=== PATIENT | female | born 1950 | race Caucasian/White ===

== ENCOUNTER → 2016-12-17 | Outpatient (CLI) | payer MEDICARE, BC ==
--- NOTE | 2016-12-18 10:48 | MM ---
Reason for exam: screening (asymptomatic). Last mammogram was performed 1 year and 1 month ago. History: Patient is postmenopausal and is nulliparous. Benign right mammotome panel of the right breast, September 27, 2005. Benign left mammotome panel of the left breast, September 14, 2005. Reductions of both breasts, 2001. Physical Findings: A clinical breast exam by your physician is recommended on an annual basis and results should be correlated with mammographic findings. MG 3D Screening Mammo W/Cad Bilateral CC and MLO view(s) were taken. Prior study comparison: December 02, 2015, bilateral MG screening mammo w CAD. May 07, 2014, bilateral MG screening mammo w CAD. July 05, 2011, bilateral digital screening mammo w/CAD. There are scattered fibroglandular densities. Finding: There are typically benign vascular, dystrophic, round calcifications in both breasts. Previous mammotome biopsy in the right breast. There is no discrete abnormality. ASSESSMENT: Benign, BI-RAD 2 RECOMMENDATION: Routine screening mammogram of both breasts in 1 year.
== END ==
LOC: RADMAMWWP 06:41
PROVIDERS: ATTEND Internal Medicine Geriatric Medicine
DX: Z12.31 Encounter for screening mammogram for malignant neoplasm of breast (principal)
CPT/HCPCS: 77063; G0202

== ENCOUNTER 2018-05-30 06:17 | Day surgery (SDC) | payer MEDICARE, BC ==
[2018-05-26 15:04] VITALS: BMI 30.5
[~2018-05-30 06:17] MED LIST: LACTATED RINGERS 1,000 ML IV SCH; MOXIFLOXACIN HCL 0.5% DROPS 3 ML BTL OP NR; TETRACAINE 0.5% OPHTH (PF) DROPS 4 ML BTL OP NR; TIMOLOL 0.5% OPHTH DROPS 5 ML BTL OP NR; TOBRA-DEXAMET 0.3-0.1% OPHTH DROPS 2.5 ML BTL OPHTHALMIC NR
[2018-05-30 07:07] VITALS: RESP 16
[2018-05-30 07:30] LABS: Glucose,Whole Blood 91 mg/dL (75-99)
[2018-05-30] MEDS ORDERED: LIDOCAINE 1% 20 ML VIAL (10MG/ML) FOR IV START INTRADERMA ONE (07:30)
[2018-05-30] MEDS: PILOCARPINE 2% OPHTH DROPS 15 ML BTL OP NR ×2 (07:44→08:54)
[2018-05-30] MEDS ORDERED: fentaNYL (PF) 50 MCG/ML 2 ML AMP ONE (08:44)
[2018-05-30] MEDS ORDERED: MIDAZOLAM 2 MG/2 ML VIAL ONE (08:44)
[2018-05-30] MEDS ORDERED: CHONDROITIN-SOD HYALURONATE 1 EACH SYRINGE (0.75 ML) INTRAOCULA ONE (08:57)
[2018-05-30] MEDS ORDERED: LIDOCAINE 1% INJ 10MG/ML (10 ML MDV) SQ ONE (08:57)
[2018-05-30] MEDS ORDERED: TRYPAN BLUE 0.06% SYRINGE 0.5 ML SYRINGE INTRAOCULA ONE ×2 (09:06)
--- NOTE | 2018-05-30 09:23 | P.OP ---
Date of Procedure: 05/30/18 Preoperative Diagnosis: POAG Postoperative Diagnosis: same Procedure(s) Performed: [place] dual blade - goniotomy Implants: none Anesthesia: MAC Surgeon: Billy Ross Pathology: none sent Condition: stable Disposition: same day Indications for Procedure: IOP control Operative Findings: No complications
[2018-05-30 09:53] LABS: Glucose,Whole Blood 100 mg/dL (75-99)
[2018-05-30 09:56] VITALS: BP 152/93; PULSE 77
--- NOTE | 2018-05-30 13:55 | OP ---
OPERATIVE REPORT DATE OF SURGERY: May,. PROCEDURE PERFORMED: Goniotomy of the left eye. PREOPERATIVE DIAGNOSIS: Primary open-angle glaucoma, moderate stage. POSTOPERATIVE DIAGNOSIS: Primary open angle glaucoma, moderate stage. SURGEON: Dr. Billy Ross. ANESTHESIA: Topical. ESTIMATED BLOOD LOSS: Less than 5 mL. SPECIMEN: Taken none. NARRATIVE: After obtaining the appropriate consent, the patient was brought to the operating room. There she was placed on cardiac monitoring, prepped and draped in the usual sterile manner. She was approached from her left temporal side and a 2.5 mm keratome was used to create a self-sealing corneal flap incision at the 3 o'clock position. Through this opening, 1% Xylocaine MPF 50/50 mix with balanced salt solution was injected into the anterior chamber. This was followed by stabilization of the anterior chamber with Viscoat. The patient was then asked to rotate her head approximately 45 degrees to her right and maintain her gaze in that general direction. A small amount of Viscoat was placed on the patient's cornea and a gonio prism was used to examine the trabecular meshwork. Due to the proximity of the high iris insertion and the trabecular meshwork, it was decided to remove some of the viscoelastic in that particular area and use trypan blue to improve the visualization. Trypan was then irrigated away and additional Viscoat was used to stabilize the anterior chamber and the trabecular meshwork was easily identified. Using a [employer]ian[employer]iank dual blade goniotomy knife, the goniotomy was performed after passing the device across the anterior chamber and into the nasal trabecular meshwork. Then the knife was advanced in a counter-clockwise fashion for approximately 4-5 clock hours. [id number] amount of blood was encountered as expected. The patient was then returned to the normal supine position and irrigation aspiration of the remaining viscoelastic was accomplished without difficulty. The eye was brought to normal intraocular pressures through the temporal incision and the incision was confirmed watertight. She then received 2 drops of 0.5% timolol followed by 2 drops of moxifloxacin as well as 2 drops of 2% pilocarpine. She was lightly patched and shielded in the usual manner. There were no complications from the procedure. She tolerated the procedure well and was returned to outpatient recovery in good condition. MMODL / IJN: [id number] /
== END 2018-05-30 10:13 | disposition home or self-care (01) ==
LOC: OR 06:17
PROVIDERS: ATTEND Ophthalmology
DX: E11.39 Type 2 diabetes mellitus with other diabetic ophthalmic complication (principal); H42 Glaucoma in diseases classified elsewhere; H40.1132 Primary open-angle glaucoma, bilateral, moderate stage; E11.3393 Type 2 diabetes mellitus with moderate nonproliferative diabetic retinopathy without macular edema, bilateral; H52.13 Myopia, bilateral; H52.4 Presbyopia; H52.223 Regular astigmatism, bilateral; H00.023 Hordeolum internum right eye, unspecified eyelid; H00.026 Hordeolum internum left eye, unspecified eyelid; J45.909 Unspecified asthma, uncomplicated; M19.90 Unspecified osteoarthritis, unspecified site; Z79.4 Long term (current) use of insulin; Z79.899 Other long term (current) drug therapy; Z98.42 Cataract extraction status, left eye; Z98.41 Cataract extraction status, right eye; Z96.1 Presence of intraocular lens; Z96.641 Presence of right artificial hip joint; Z83.511 Family history of glaucoma; Z83.3 Family history of diabetes mellitus; Z97.3 Presence of spectacles and contact lenses
CPT/HCPCS: 65820; J2250; J3010; J2001

== ENCOUNTER → 2020-05-10 | Outpatient (CLI) | payer MEDICARE, OTHER ==
--- NOTE | 2020-05-11 12:01 | MM ---
Reason for exam: screening (asymptomatic). Last mammogram was performed 3 years and 5 months ago. History: Patient is postmenopausal and is nulliparous. Benign right mammotome panel of the right breast, September 27, 2005. Benign left mammotome panel of the left breast, September 14, 2005. Reductions of both breasts, 2001. Physical Findings: A clinical breast exam by your physician is recommended on an annual basis and results should be correlated with mammographic findings. MG 3D Screening Mammo W/Cad Bilateral CC and MLO view(s) were taken. Prior study comparison: December 17, 2016, bilateral MG 3d screening mammo w/cad. December 02, 2015, bilateral MG screening mammo w CAD. There are scattered fibroglandular densities. No significant changes when compared with prior studies. ASSESSMENT: Benign, BI-RAD 2 RECOMMENDATION: Routine screening mammogram of both breasts in 1 year.
== END | disposition home or self-care (01) ==
LOC: RADMAMWWP 14:45
PROVIDERS: ATTEND Internal Medicine Geriatric Medicine
DX: Z12.31 Encounter for screening mammogram for malignant neoplasm of breast (principal)
CPT/HCPCS: 77063; 77067

== ENCOUNTER → 2020-07-07 | Outpatient (CLI) | payer MEDICARE ==
--- NOTE | 2020-07-11 13:10 | US ---
EXAMINATION TYPE: US venous doppler duplex LE BI DATE OF EXAM: 07/07/2020 3:07 PM COMPARISON: NONE CLINICAL HISTORY: I80.9, M25.561, M25.562. Bilateral leg pain SIDE PERFORMED: Bilateral TECHNIQUE: The lower extremity deep venous system is examined utilizing real time linear array sonog katerine with graded compression, doppler sonography and color-flow sonography. VESSELS IMAGED: External Iliac Vein (EIV) Common Femoral Vein Deep Femoral Vein Greater Saphenous Vein * Femoral Vein Popliteal Vein Small Saphenous Vein * Proximal Calf Veins (* superficial vessels) Right Leg: Negative for DVT, patient unable to tolerate compressions at distal fem vein Left Leg: Negative for DVT, patient unable to tolerate compressions at distal fem vein Results called to Kacy at Dr's office at time of exam Grayscale, color doppler, spectral doppler imaging performed of the deep veins of the bilateral lower extremities. There is normal flow, compressibility, vascular waveforms. IMPRESSION: No ultrasound evidence for acute DVT in either lower extremity.
== END | disposition home or self-care (01) ==
LOC: RADUSWWP 14:34
PROVIDERS: ATTEND Orthopaedic Surgery
DX: I80.9 Phlebitis and thrombophlebitis of unspecified site (principal); M17.0 Bilateral primary osteoarthritis of knee; M85.80 Other specified disorders of bone density and structure, unspecified site
CPT/HCPCS: 93970

== ENCOUNTER 2021-03-17 23:57 | Inpatient (IN) | payer MEDICARE ==
[2021-03-18 00:13] LABS: Glucose,Whole Blood >600 mg/dL (75-99)
[2021-03-18] MEDS ORDERED: SODIUM CHLORIDE 0.9% 1,000 ML IV STA ×2 (00:24)
[2021-03-18] MEDS ORDERED: SODIUM CHLORIDE 0.9% 500 ML 500 ML IV STA (00:24)
--- NOTE | 2021-03-18 00:33 | ED ---
Recheck HPI - General Chief Complaint: Recheck/Abnormal Lab/Rx Stated Complaint: hyperglycemia Time Seen by Provider: 03/18/21 00:05 Source: patient, EMS, RN notes reviewed, old records reviewed Mode of arrival: EMS Limitations: no limitations - History of Present Illness Initial Comments: This is a 70-year-old female presents here for evaluation of significantly elevated blood sugar. Patient presents to the ED for evaluation regards to not acting appropriately not taking medications and severely elevated blood sugar. Failure to respond resulted in a well check on patient as they had not having heard from from since the march they noticed in her house where she hasn't taken any medication since March 12 and has had no contact with family since. Patient is irritated to be here in the ER currently, she admitted she would of taken her medications if she could have seen them, she states that she wouldn't be here for wasn't for her family members bringing her in. She wanted to go home. Family was encouraging her to stay in the hospital. Family is here at bedside. Patient denying any complaints, again no shortness of breath no re cent cough congestion fever or chest pain MD Complaint: abnormal lab (Significant elevated blood sugar) -: unknown Returns Today for: Called Because of Abnormal Lab/Test (Elevated blood sugar), other (Patient not responding to family calls) Symptoms Since Prior Visit: no new symptoms Context: other (Family called EMS to bring patient to emergency department) Associated Symptoms: none Treatments Prior to Arrival: other (Patient does have insulin pump which may not be working) - Related Data Home Medications Medication Instructions Recorded Confirmed Albuterol Inhaler (Mhu) [Ventolin 1 - 2 puff INHALATION RT-Q6H PRN 05/26/18 05/30/18 Hfa Inhaler] Albuterol Nebulized [Ventolin 2.5 mg INHALATION Q6H 05/26/18 05/30/18 Nebulized] Insulin Aspart (For Pump) [NovoLOG 0.01 unit SQ-PUMP CONTINUOUS 05/26/18 05/30/18 (For Pump)] Allergies Allergy/AdvReac Type Severity Reaction Status Date / Time No Known Allergies Allergy Verified 05/30/18 07:07 Review of Systems ROS Statement: Those systems with pertinent positive or pertinent negative responses have been documented in the HPI. ROS Other: All systems not noted in ROS Statement are negative. Past Medical History Past Medical History: Asthma, Diabetes Mellitus, Eye Disorder, Osteoarthritis (OA) Additional Past Medical History / Comment(s): insulin pump, jose luis glaucoma History of Any Multi-Drug Resistant Organisms: None Reported Past Surgical History: Breast Surgery, Joint Replacement, Orthopedic Surgery, Tubal Ligation Additional Past Surgical History / Comment(s): jose luis breast reduction, rt arm surgery, rt ankle surgery, rt hip replacement Past Anesthesia/Blood Transfusion Reactions: Previous Problems w/ Anesthesia Additional Past Anesthesia/Blood Transfusion Reaction / Comment(s): slow to come out of anesthesia Past Psychological History: No Psychological Hx Reported Smoking Status: Former smoker Past Alcohol Use History: None Reported Past Drug Use History: None Reported - Past Family History Mother Family Medical History: No Reported History General Exam Limitations: no limitations General appearance: alert, in no apparent distress Head exam: Present: atraumatic, normocephalic, normal inspection Eye exam: Present: normal appearance, PERRL, EOMI. Absent: scleral icterus, conjunctival injection, periorbital swelling ENT exam: Present: normal exam, mucous membranes moist Neck exam: Present: normal inspection. Absent: tenderness, meningismus, lymphadenopathy Respiratory exam: Present: normal lung sounds bilaterally. Absent: respiratory distress, wheezes, rales, rhonchi, stridor Cardiovascular Exam: Present: regular rate, normal rhythm, normal heart sounds. Absent: systolic murmur, diastolic murmur, rubs, gallop, clicks GI/Abdominal exam: Present: soft, normal bowel sounds. Absent: distended, te nderness, guarding, rebound, rigid Extremities exam: Present: normal inspection, full ROM, normal capillary refill. Absent: tenderness, pedal edema, joint swelling, calf tenderness Back exam: Present: normal inspection Neurological exam: Present: alert, oriented X3, CN II-XII intact Psychiatric exam: Present: normal affect, normal mood Skin exam: Present: warm, dry, intact, normal color. Absent: rash Course Vital Signs 03/18/21 03/18/21 00:02 01:43 Temperature 97.7 F Pulse Rate 96 85 Respiratory 16 16 Rate Blood Pressure 145/78 137/67 O2 Sat by Pulse 95 95 Oximetry - Reevaluation(s) Reevaluation #1: 03/18/21 0:13 Medical record is reviewed Reevaluation #2: 03/18/21 02:14 Patient troponin has come back positive. In conjunction with patient's abnormal EKG cardiology was paged regarding patient, Patient remains without chest pain Reevaluation #3: 03/18/21 02:14 Patient reevaluation continues remained without complaint, states she would like to be home - Consultations Consultation #1: spoke w Dr Goldstein who is aware of EKG and Troponin, will take patient to the cathead worker Medical Decision Making - Medical Decision Making 70 female to the ER without complaint, had elevated blood sugar at home, found to be in acute DKA, patient also is found to be an acute coronary syndrome elevated troponin and abnormal EKG. - Lab Data Result diagrams: 03/18/21 00:45 03/18/21 00:45 Lab Results 03/18/21 03/18/21 03/18/21 Range/Units 00:11 00:45 00:45 WBC 12.8 H (3.8-10.6) k/uL RBC 4.23 (3.80-5.40) m/uL Hgb 12.5 (11.4-16.0) gm/dL Hct 40.0 (34.0-46.0) % MCV 94.5 (80.0-100.0) fL MCH 29.6 (25.0-35.0) pg MCHC 31.3 (31.0-37.0) g/dL RDW 13.2 (11.5-15.5) % Plt Count 414 (150-450) k/uL MPV 8.7 Neutrophils % 86 % Lymphocytes % 7 % Monocytes % 4 % Eosinophils % 1 % Basophils % 0 % Neutrophils # 11.0 H (1.3-7.7) k/uL Lymphocytes # 0.9 L (1.0-4.8) k/uL Monocytes # 0.6 (0-1.0) k/uL Eosinophils # 0.1 (0-0.7) k/uL Basophils # 0.0 (0-0.2) k/uL Sodium 128 L (137-145) mmol/L Potassium 5.0 (3.5-5.1) mmol/L Chloride 93 L (98-107) mmol/L Carbon Dioxide 18 L (22-30) mmol/L Anion Gap 17 mmol/L BUN 37 H (7-17) mg/dL Creatinine 1.08 H (0.52-1.04) mg/dL Est GFR (CKD-EPI)AfAm 60 (>60 ml/min/1.73 sqM) Est GFR (CKD-EPI)NonAf 52 (>60 ml/min/1.73 sqM) Glucose 670 H* (74-99) mg/dL POC Glucose (mg/dL) >600 H (75-99) mg/dL POC Glu Senior Managing Director ID Truman Heard Calcium 9.5 (8.4-10.2) mg/dL Phosphorus 3.9 (2.5-4.5) mg/dL Magnesium 2.1 (1.6-2.3) mg/dL Total Bilirubin 0.6 (0.2-1.3) mg/dL AST 23 (14-36) U/L ALT 16 (4-34) U/L Alkaline Phosphatase 101 (38-126) U/L Creatine Kinase 142 H (30-135) U/L Troponin I (0.000-0.034) ng/mL Total Protein 6.5 (6.3-8.2) g/dL Albumin 3.5 (3.5-5.0) g/dL Acetone, Qual Positive (Negative) 03/18/21 Range/Units 00:45 WBC (3.8-10.6) k/uL RBC (3.80-5.40) m/uL Hgb (11.4-16.0) gm/dL Hct (34.0-46.0) % MCV (80.0-100.0) fL MCH (25.0-35.0) pg MCHC (31.0-37.0) g/dL RDW (11.5-15.5) % Plt Count (150-450) k/uL MPV Neutrophils % % Lymphocytes % % Monocytes % % Eosinophils % % Basophils % % Neutrophils # (1.3-7.7) k/uL Lymphocytes # (1.0-4.8) k/uL Monocytes # (0-1.0) k/uL Eosinophils # (0-0.7) k/uL Basophils # (0-0.2) k/uL Sodium (137-145) mmol/L Potassium (3.5-5.1) mmol/L Chloride (98-107) mmol/L Carbon Dioxide (22-30) mmol/L Anion Gap mmol/L BUN (7-17) mg/dL Creatinine (0.52-1.04) mg/dL Est GFR (CKD-EPI)AfAm (>60 ml/min/1.73 sqM) Est GFR (CKD-EPI)NonAf (>60 ml/min/1.73 sqM) Glucose (74-99) mg/dL POC Glucose (mg/dL) (75-99) mg/dL POC Glu Senior Managing Director ID Calcium (8.4-10.2) mg/dL Phosphorus (2.5-4.5) mg/dL Magnesium (1.6-2.3) mg/dL Total Bilirubin (0.2-1.3) mg/dL AST (14-36) U/L ALT (4-34) U/L Alkaline Phosphatase (38-126) U/L Creatine Kinase (30-135) U/L Troponin I 3.930 H* (0.000-0.034) ng/mL Total Protein (6.3-8.2) g/dL Albumin (3.5-5.0) g/dL Acetone, Qual (Negative) - EKG Data -: EKG Interpreted by Me (EKG shows sinus rhythm rate of 90 QRS [address] changes, Qwaves positiv) - Radiology Data Radiology results: report reviewed (Chest x-rays negative for acute disease, CT brain is negative for acute disease), image reviewed Critical Care Time Critical Care Time: Yes Total Critical Care Time: 31 Disposition Clinical Impression: DKA (diabetic ketoacidosis), Weakness, Acute coronary syndrome Disposition: ADMITTED IP TO THIS HOSP Condition: Serious Is patient prescribed a controlled substance at d/c from ED?: No
[2021-03-18 00:52] LABS: Basophils % (A) 0 %; Eosinophils # (A) 0.1 k/uL (0-0.7); Eosinophils % (A) 1 %; HGB 12.5 gm/dL (11.4-16.0); Lymphocytes # (A) 0.9 k/uL (1.0-4.8); Lymphocytes % (A) 7 %; MCH 29.6 pg (25.0-35.0); MCHC 31.3 g/dL (31.0-37.0); MCV 94.5 fL (80.0-100.0); Mean Platelet Volume 8.7; Monocytes # (A) 0.6 k/uL (0-1.0); Monocytes % (A) 4 %; Neutrophils % (A) 86 %; Platelet Count 414 k/uL (150-450); RBC 4.23 m/uL (3.80-5.40); RDW 13.2 % (11.5-15.5); WBC 12.8 k/uL (3.8-10.6)
[2021-03-18 01:09] LABS: ALT 16 U/L (4-34); African American GFR (CKD) 60 (>60 ml/min/1.73 sqM); Albumin 3.5 g/dL (3.5-5.0); Anion Gap 17 mmol/L; Blood Urea Nitrogen 37 mg/dL (7-17); Calcium 9.5 mg/dL (8.4-10.2); Carbon Dioxide 18 mmol/L (22-30); Chloride 93 mmol/L (98-107); Creatine Kinase 142 U/L (30-135); Non-African American GFR(CKD) 52 (>60 ml/min/1.73 sqM); Sodium 128 mmol/L (137-145); Total Bilirubin 0.6 mg/dL (0.2-1.3); Total Protein 6.5 g/dL (6.3-8.2)
--- NOTE | 2021-03-18 01:09 | XR ---
EXAMINATION TYPE: XR chest 2V DATE OF EXAM: 03/18/2021 COMPARISON: 01/31/2018 HISTORY: Weakness TECHNIQUE: FINDINGS: There is relative poor inspiration. There is no heart failure nor confluent pneumonic infil trate. I see no pleural effusion. There is minimal pleural reaction left lung base. There is some ant erior wedging of mid thoracic vertebra. There are chest leads. IMPRESSION: Mild subsegmental atelectasis left lung base. Poor inspiration. Inspiration improved comp ared to last exam.
[2021-03-18 01:19] LABS: Glucose 670 mg/dL (74-99); Magnesium 2.1 mg/dL (1.6-2.3); Phosphorus 3.9 mg/dL (2.5-4.5)
[2021-03-18 01:20] LABS: AST 23 U/L (14-36); Alkaline Phosphatase 101 U/L (38-126)
[2021-03-18] MEDS ORDERED: INSULIN REGULAR BOLUS (FROM DRIP BAG) IV ONE (01:39)
[2021-03-18] MEDS ORDERED: SODIUM CHLORIDE 0.9% 1,000 ML IV ONE (01:39)
[2021-03-18 01:43] LABS: Glucose,Whole Blood 585 mg/dL (75-99)
[2021-03-18] MEDS: INSULIN REGULAR 100 UNIT in SODIUM CHLORIDE 0.9% 100 ML IV SCH ×2 (02:07→05:24)
[2021-03-18] MEDS ORDERED: NITROGLYCERIN SL TABS 0.4 MG TAB SUBLINGUAL PRN ×2 (02:16→04:15)
[2021-03-18] MEDS ORDERED: ASPIRIN 81 MG PO STA (02:16)
[2021-03-18] MEDS ORDERED: MORPHINE SULFATE 4 MG/ML SYRINGE IV PRN (02:16)
[2021-03-18] MEDS ORDERED: HEPARIN SODIUM 1,000 UN/ML (10ML VL) IV ONE (02:16)
[2021-03-18] MEDS ORDERED: HEPARIN SOD,PORK IN 0.45% NACL 25,000 UNIT in 0.45% NACL 1 250ML.BAG IV SCH (02:30)
[2021-03-18] MEDS ORDERED: LIDOCAINE 1% INJ 10MG/ML (20 ML MDV) ONE (02:43)
[2021-03-18] MEDS ORDERED: IV FLUID CONTINUATION 1,000 ML IV ONE (02:50)
--- NOTE | 2021-03-18 02:51 | CT ---
EXAMINATION TYPE: CT brain wo con DATE OF EXAM: 03/18/2021 COMPARISON: None HISTORY: elevated tropinin. DKA CT DLP: 1115.4 mGycm Automated exposure control for dose reduction was used. Exam performed with no contrast. Ventricles have normal size. There is no mass effect nor midline shift. There is no sign of intracran ial hemorrhage. Calvarium is intact. There is normal aeration of the mastoid sinuses. The skull base is intact. IMPRESSION: Negative CT scan of the brain.
--- NOTE | 2021-03-18 02:51 | P.CRDCN ---
History of Present Illness History of present illness: HISTORY OF PRESENTING ILLNESS Patient is a pleasant 70-year-old female with history of diabetes mellitus type 2, osteoarthritis, diabetic neuropathy, previous tobacco abuse, macular degenera tion. Patient presented with altered mental status. Patient poor historian however history is supplied in conjunction with review of chart. Patient's [id number] noted patient was not acting appropriately and not taking her medications and therefore her blood sugar was checked it was noted to be extremely elevated and therefore presented to emergency department. Apparently since March 12, proximally 6 days ago she is not taking her medications. She states she does not want to be in the hospital currently. She does admit to a history of neuropathy of her feet. She denies any chest pain, pressure, shortness breath. She admits to diaphoresis "for a few minutes"however none right now and cannot describe when this occurred. She denies any jaw pain, arm pain, epigastric pain, GERD. She denies any prior cardiac history, coronary stents. She is alert and oriented to [facility] and states the year is 2013. On presentation EKG showed sinus rhythm, left axis deviation, Q waves V1 through the 3 with approximately 1.[address] elevation in lead V2, additional ST elevation of 1 mm in lead 1, 0.[address] elevation aVL, ST depression in lead 3, aVR. She was noted to have extremely elevated blood sugar of 670, sodium 128, potassium 5.0, bicarbonate 18, BUN 37, creatinine 1.08, white blood cell count 12.8, hemoglobin 12.5, platelets 414, CK 142, troponin 3.9. Cardiology was called when troponin was noted to be elevated and due to EKG and troponin, woven label designer was activated with possibility of silent ischemia. REVIEW OF SYSTEMS At the time of my exam: CONSTITUTIONAL: Denies fever or chills. CARDIOVASCULAR: Denies chest pain, shortness of breath, orthopnea, PND or palpit ations. RESPIRATORY: Denies cough. GASTROINTESTINAL: Denies abdominal pain, diarrhea, constipation, nausea or vomiting. MUSCULOSKELETAL: Denies myalgias. NEUROLOGIC: +chronic feet numbness, no tingling or weakness. ENDOCRINE: Denies fatigue, weight change, polydipsia or polyurina. GENITOURINARY: Denies burning, hematuria or urgency with micturation. HEMATOLOGIC: Denies history of anemia or bleeding. PHYSICAL EXAMINATION Vital signs reviewed. CONSTITUTIONAL: No apparent distress, alert however only oriented to person and hospital, thinks it's 2014, confused HEENT: Head is normocephalic. Pupils are equal, round. Sclerae anicteric. Mucous membranes of the mouth are moist. No JVD. No carotid bruit. CHEST EXAMINATION: Lungs are clear to auscultation. No chest wall tenderness is noted on palpation or with deep breathing. HEART EXAMINATION: Regular rate and rhythm. S1, S2 heard. No murmurs, gallops or rub. ABDOMEN: Soft, nontender. Positive bowel sounds. EXTREMITIES: 2+ peripheral pulses, no lower extremity edema and no calf tenderness. NEUROLOGIC EXAMINATION: Patient is awake, alert and oriented only to person hospital, infused ASSESSMENT 1. Non-STEMI with EKG concerning for possible old anterior MS plus or minus lateral 0.5-[address] elevation. Unclear if troponin is trending up or down. Abnormal presentation without any chest pain and more presenting with DKA and altered mental status. 2. Altered mental status 3. Diabetes mellitus type 2 4. DKA 5. Neuropathy 6. Metabolic Acidosis PLAN Patient with abnormal presentation without any chest pain or angina-type sympto ms and more with altered mental status. She may be having silent ischemia with diabetes and neuropathy. Blood work consistent with DKA and altered mental status likely related to DKA however await stat CT brain to rule out any bleed. If no bleed would recommend emergent heart catheterization with possible PCI. Unclear if troponins are trending up or trending down with EKG consistent with likely old anterior MS and possible or acute lateral. Check 2-D echo. Further recommendations to follow. Past Medical History Past Medical History: Asthma, Diabetes Mellitus, Eye Disorder, Osteoarthritis (OA) Additional Past Medical History / Comment(s): insulin pump, jose luis glaucoma History of Any Multi-Drug Resistant Organisms: None Reported Past Surgical History: Breast Surgery, Joint Replacement, Orthopedic Surgery, Tubal Ligation Additional Past Surgical History / Comment(s): jose luis breast reduction, rt arm surgery, rt ankle surgery, rt hip replacement Past Anesthesia/Blood Transfusion Reactions: Previous Problems w/ Anesthesia Additional Past Anesthesia/Blood Transfusion Reaction / Comment(s): slow to come out of anesthesia Past Psychological History: No Psychological Hx Reported Smoking Status: Former smoker Past Alcohol Use History: None Reported Past Drug Use History: None Reported - Past Family History Mother Family Medical History: No Reported History Medications and Allergies Home Medications Medication Instructions Recorded Confirmed Type Albuterol Inhaler (Mhu) [Ventolin 1 - 2 puff INHALATION RT-Q6H PRN 05/26/18 05/30/18 History Hfa Inhaler] Albuterol Nebulized [Ventolin 2.5 mg INHALATION Q6H 05/26/18 05/30/18 History Nebulized] Insulin Aspart (For Pump) [NovoLOG 0.01 unit SQ-PUMP CONTINUOUS 05/26/18 05/30/18 History (For Pump)] Allergies Allergy/AdvReac Type Severity Reaction Status Date / Time No Known Allergies Allergy Verified 05/30/18 07:07 Physical Exam Vitals: Vital Signs Temp Pulse Resp BP Pulse Ox 03/18/21 01:43 85 16 137/67 95 03/18/21 00:02 97.7 F 96 16 145/78 95 Intake and Output 03/17/21 03/17/21 03/18/21 14:59 22:59 06:59 Other: Weight 99.79 kg Results 03/18/21 00:45 03/18/21 00:45 Cardiac Enzymes 03/18/21 03/18/21 Range/Units 00:45 00:45 AST 23 (14-36) U/L Troponin I 3.930 H* (0.000-0.034) ng/mL CBC 03/18/21 Range/Units 00:45 WBC 12.8 H (3.8-10.6) k/uL RBC 4.23 (3.80-5.40) m/uL Hgb 12.5 (11.4-16.0) gm/dL Hct 40.0 (34.0-46.0) % Plt Count 414 (150-450) k/uL Comprehensive Metabolic Panel 03/18/21 Range/Units 00:45 Sodium 128 L (137-145) mmol/L Potassium 5.0 (3.5-5.1) mmol/L Chloride 93 L (98-107) mmol/L Carbon Dioxide 18 L (22-30) mmol/L BUN 37 H (7-17) mg/dL Creatinine 1.08 H (0.52-1.04) mg/dL Glucose 670 H* (74-99) mg/dL Calcium 9.5 (8.4-10.2) mg/dL AST 23 (14-36) U/L ALT 16 (4-34) U/L Alkaline Phosphatase 101 (38-126) U/L Total Protein 6.5 (6.3-8.2) g/dL Albumin 3.5 (3.5-5.0) g/dL Current Medications Generic Name Dose Route Start Last Admin Trade Name Freq PRN Reason Stop Dose Admin Aspirin 325 mg 03/19/21 09:00 Aspirin 325 Mg Tab PO DAILY [facility] [place] Atorvastatin Calcium 80 mg 03/18/21 09:00 Atorvastatin 80 Mg Tab PO DAILY PARUL Sodium Chloride 1,000 mls @ 130 mls/hr 03/18/21 00:24 03/18/21 00:54 Saline 0.9% IV 03/18/21 08:05 130 mls/hr .Q7H42M STA Administration Insulin Human Regular 100 unit 101 mls @ 10.079 mls/hr 03/18/21 02:00 03/18/21 02:07 / Sodium Chloride IV 0.1 units/kg/hr .Q10H2M PARUL 10.079 mls/hr Administration Protocol 0.1 UNITS/KG/HR Sodium Chloride 1,000 mls @ 200 mls/hr 03/18/21 01:45 Saline 0.9% IV .Q5H PARUL Potassium Chloride/Dextrose/Sod Cl 1,000 mls @ 150 mls/hr 03/18/21 01:45 D5%-1/2ns-Kcl 20 Meq/L Iv Solution IV .Q6H40M PARUL Sodium Chloride 1,000 mls @ 500 mls/hr 03/18/21 01:39 03/18/21 02:07 Saline 0.9% IV 500 mls/hr .Q2H ONE Administration Heparin Sodium/Sodium Chloride 250 mls @ 9.979 mls/hr 03/18/21 02:30 25,000 unit/ Sodium Chloride IV .Q24H PARUL Protocol 10 UNITS/KG/HR Metoprolol Tartrate 25 mg 03/18/21 09:00 Metoprolol Tartrate 25 Mg Tab PO BID PARUL Morphine Sulfate 4 mg 03/18/21 02:16 Morphine Sulfate 4 Mg/Ml Syringe IV Q4HR PRN Chest Pain Nitroglycerin 0.4 mg 03/18/21 02:16 Nitroglycerin Sl Tabs 0.4 Mg Tab SUBLINGUAL Q5M PRN Chest Pain Intake and Output 03/17/21 03/17/21 03/18/21 14:59 22:59 06:59 Other: Weight 99.79 kg Patient Weight 03/18/21 06:59 Weight 99.79 kg 03/18/21 00:45 03/18/21 00:45
[2021-03-18] MEDS: MIDAZOLAM 2 MG/2 ML VIAL IV ONE ×2 (02:52→03:16)
[2021-03-18] MEDS ORDERED: fentaNYL (PF) 50 MCG/ML 2 ML AMP ONE (02:52)
[2021-03-18] MEDS ORDERED: fentaNYL (PF) 50 MCG/ML 2 ML AMP IV ONE (02:52)
[2021-03-18] MEDS ORDERED: VERAPAMIL 2.5 MG/ML 2 ML AMP ONE (02:53)
[2021-03-18] MEDS ORDERED: LIDOCAINE 1% INJ 10MG/ML (20 ML MDV) SQ ONE (02:55)
[2021-03-18] MEDS ORDERED: VERAPAMIL SYRINGE (5 MG/10 ML) INTRAARTER ONE (02:58)
[2021-03-18] MEDS ORDERED: TICAGRELOR 90 MG TAB ONE (03:05)
[2021-03-18] MEDS ORDERED: TICAGRELOR 90 MG TAB PO ONE (03:09)
[2021-03-18] MEDS: NITROGLYCERIN 1000MCG/10ML SYRINGE INTRACORON ONE ×3 (03:22→03:34)
[2021-03-18] MEDS ORDERED: IOPAMIDOL-370 125ML BTL INJ ONE (03:34)
[2021-03-18] MEDS ORDERED: niCARdipine 25 MG/10 ML VIAL ONE (03:37)
[2021-03-18] MEDS: niCARdipine Syringe (1,000 mcg/10 mL) INTRACORON ONE ×2 (03:39→03:41)
[2021-03-18] MEDS ORDERED: IOPAMIDOL-370 100ML BTL INJ ONE (03:47)
[2021-03-18] MEDS ORDERED: RX INFO: IV CONTRAST WAS GIVEN 1 EACH MISC MISCELLANE PRN (04:15)
[2021-03-18] MEDS ORDERED: ZOLPIDEM 5 MG TAB PO PRN (04:15)
[2021-03-18] MEDS ORDERED: MAG HYDROX/AL HYDROX/SIMETH 30 ML CUP PO PRN (04:15)
[2021-03-18] MEDS ORDERED: ATROPINE SULFATE 0.1 MG/ML 10ML SYRINGE IV PRN (04:15)
--- NOTE | 2021-03-18 04:15 | P.PRCINT ---
Percutaneous Coronary Int. - Percutaneous Coronary Intervention Percutaneous Coronary Intervention: PROCEDURES PERFORMED: Left heart catheterization, bilateral coronary angiography, PCI proximal LAD with a 3.5 x 28 mm Xience SUKHI INDICATION: Non-STEMI HISTORY: Patient is a pleasant 70-year-old female with a history of diabetes mellitus type 2, diabetic neuropathy, previous tobacco abuse who presents secondary to altered mental status. Patient is a poor historian however per family was noted to be confused and therefore brought to emergency department with blood sugar greater than 600 and DKA. Patient was denying any chest pain or pressure or angina-type symptoms and initial EKG showing Q waves anteriorly with some minimal residual ST elevation and minimal ST elevation in the lateral leads. Patient was found to have elevated troponin and patient was taken to the [facility]. CONSENT:I have discussed the risks, benefits and alternative therapies for the above-mentioned procedure and for both sedation/analgesia as well as necessary blood product administration, if indicated, as they pertain to this patient. The patient has indicated understanding and acceptance of the risks and procedures discussed. PROCEDURE: After the risks, benefits and alternatives of the above mentioned procedure explained in detail with the patient, informed consent was obtained. Patient was taken to the catheterization lab and prepped and draped in usual fashion. 1% lidocaine was used to anesthetize the right radial artery. A 6- [place] sheath was placed in the right radial artery using modified Seldinger technique. Left coronary angiography was performed with a 5-[place] JL 3.5 catheter and right coronary angiography was performed with a 5-[place] JR5 catheter in various views. A 5-[place] FR5 catheter was inserted into the left ventricle and pressure measurements were obtained. The decision was made to perform PCI of LAD. The left main was engaged with a 6-[place] CLS 3.5 guide. A 0.014 BMW wire was placed in the circumflex and then a second 0.014 BMW wire was advanced into the LAD. The proximal LAD was predilated with a 2.5 x 12 mm balloon. Next a 3.5 x 28 mm Xience SUKHI was advanced into the proximal LAD and deployed. There was still some no reflow noted of the mid to distal LAD however this was felt related to extremely elevated EDP and with no other critical disease noted of the proximal to mid to distal LAD noted. The suspicion was that this has been a subacute [place] with possible old [place] with patient already Q'd out and therefore less utility of an LV assist device to unload the ventricle. Therefore the wire and guide were removed. Preintervention there was 100% stenosis and NAVIN 0 flow, postintervention there was 0% stenosis, NAVIN 0 flow the distal LAD however NAVIN 2-3 flow of the mid LAD, diagonal branch. No reflow of the distal LAD was felt related to microvascular dysfunction with likely older subacute [place] and related to elevated LVEDP and this did not improve with nitroglycerin and nicardipine. The right radial sheath was removed and a TR band was placed with hemostasis achieved. The patient tolerated the procedure well. Patient was transported back to the post catheterization holding area in stable condition. Conscious Sedation: Patient was monitored under the direct supervision of vision of myself for conscious sedation using Versed and fentanyl for a total duration of 58 minutes HEMODYNAMICS: Aorta: 111/69 LV: 109/26, LVEDP 42 SELECTIVE CORONARY ARTERIOGRAPHY: LEFT MAIN: The left main is a large caliber vessel which bifurcates into the LAD and circumflex. There is no significant stenosis. LEFT ANTERIOR DESCENDING CORONARY ARTERY: LAD is a large caliber vessel which wraps around to the apex. There is a proximal LAD 100% stenosis followed by tandem 70% and 80% proximal LAD stenoses. There are mild luminal irregularities of the mid to distal LAD. There is a 50-60% stenosis of the proximal diagonal 1 branch. LEFT CIRCUMFLEX CORONARY ARTERY: Left circumflex is a moderate caliber vessel with mild luminal irregularities. There is a 50-60% stenosis of the bifurcation of a superior and inferior branch of OM 2. Otherwise there is mild disease. RIGHT CORONARY ARTERY: The right coronary artery is a large caliber vessel which gives off a PDA and PLV branch and is the dominant vessel. There is a mid RCA 30-40% stenosis. FINAL IMPRESSION: 1. Coronary artery disease as described above including proximal LAD 100% stenosis, diagonal 1 50-60% stenosis, OM 2 50-60% stenosis, RCA 30-40% stenosis 2. S/p PCI proximal LAD with a 3.5 x 28 mm Xience SUKHI 3. Extremely elevated left-sided filling pressures likely related to ischemic cardiomyopathy 4. No reflow distal LAD likely related to late presenting [place] with microvascular dysfunction, elevated LVEDP PLAN: 1. Aggressive risk factor modification per most recent ACC/AHA guidelines. 2. Continue dual antiplatelets for 12 months 3. Monitor fluids closely as patient has been in DKA however LVEDP extremely elevated.
[2021-03-18 04:19] LABS: Glucose,Whole Blood 483 mg/dL (75-99)
[2021-03-18] MEDS: SODIUM CHLORIDE 0.9% 1,000 ML IV SCH ×2 (04:20→08:33)
[2021-03-18] MEDS ORDERED: NALOXONE 0.4 MG/ML 1 ML VIAL IV PRN (05:09)
[2021-03-18 05:33] LABS: Basophils % (A) 0 %; Eosinophils # (A) 0.1 k/uL (0-0.7); Eosinophils % (A) 1 %; HCT 36.7 % (34.0-46.0); HGB 12.2 gm/dL (11.4-16.0); Lymphocytes % (A) 7 %; MCH 30.6 pg (25.0-35.0); MCHC 33.2 g/dL (31.0-37.0); MCV 92.2 fL (80.0-100.0); Mean Platelet Volume 8.6; Monocytes # (A) 0.6 k/uL (0-1.0); Monocytes % (A) 5 %; Neutrophils # (A) 11.2 k/uL (1.3-7.7); Neutrophils % (A) 86 %; Platelet Count 384 k/uL (150-450); RBC 3.98 m/uL (3.80-5.40); RDW 12.9 % (11.5-15.5); WBC 13.1 k/uL (3.8-10.6)
[2021-03-18 05:37] LABS: Appearance,Urine Clear (Clear); Bacteria,Urine Rare /hpf; Bilirubin,Urine Negative (Negative); Blood,Urine Moderate (Negative); Color,Urine Light Yellow; Glucose,Urine (UA) 4+ (Negative); Leukocyte Esterase,Urine Moderate (Negative); Mucus,Urine Rare /hpf; Nitrite,Urine Negative (Negative); Protein,Urine Negative (Negative); RBC,Urine 11 /hpf (0-5); Specific Gravity,Urine 1.037 (1.001-1.035); Squamous Epithelial Cell,Urine 2 /hpf (0-4); Urobilinogen,Urine <2.0 mg/dL (<2.0); WBC,Urine 2 /hpf (0-5)
[2021-03-18 05:42] LABS: Glucose,Whole Blood 454 mg/dL (75-99)
[2021-03-18 05:51] LABS: Calcium 9.1 mg/dL (8.4-10.2); Magnesium 2.1 mg/dL (1.6-2.3); Potassium 4.5 mmol/L (3.5-5.1)
[2021-03-18 06:10] LABS: Ketones,Urine 3+ (Negative)
[2021-03-18 06:29] LABS: Glucose,Whole Blood 460 mg/dL (75-99)
--- NOTE | 2021-03-18 07:16 | XR ---
EXAMINATION TYPE: XR chest 1V DATE OF EXAM: 03/18/2021 COMPARISON: 03/18/2021 HISTORY: Shortness of breath TECHNIQUE: Single frontal view of the chest is obtained. FINDINGS AND IMPRESSION: Mild hyperinflation lungs suggest COPD/emphysema, no significant change. Patchy left lower lobe opacity could be on the basis of pneumonia. No pneumothorax or pleural effusion. Mild pulmonary vascular congestion. Cardiomediastinal silhouette within normal limit. Mid thoracic spine vertebral body (likely T9) appears to have loss of body height of L2 definitely se e on prior radiographs, the need for CT of the thoracic spine should be determined on a clinical basi s.
[2021-03-18 07:19] LABS: Glucose,Whole Blood 469 mg/dL (75-99)
[2021-03-18] MEDS: PANTOPRAZOLE 40 MG TABLET PO SCH (08:33)
[2021-03-18] MEDS ORDERED: METOPROLOL TARTRATE 25 MG TAB PO SCH (09:00)
[2021-03-18] MEDS ORDERED: INSULIN REGULAR 100 UNIT in SODIUM CHLORIDE 0.9% 100 ML IV SCH (09:00)
[2021-03-18 09:03] LABS: Glucose,Whole Blood 314 mg/dL (75-99)
--- NOTE | 2021-03-18 09:05 | P.CNPUL ---
History of Present Illness Consult date: 03/18/21 Requesting physician: Victor Hugo Goldstein Reason for consult: other (Critical care management) Chief complaint: Chest pain History of present illness: This is a pleasant 70-year-old female patient with a known history of diabetes mellitus utilizing an insulin pump, osteoarthritis, mild intermittent chronic bronchial asthma, glaucoma. Lifelong nonsmoker. She presented here to the emergency room concerns regarding high blood sugars. She also had some altered mental status. The patient had not been heard from since March 12 and had not been taking her medications. His son to be in DKA. Acetone positive. Blood glucose 670. Creatinine 1.08. Bicarb 18. Anion gap 17. She was also found to have elevated troponins at 3.93 and 4.83. Non-ST segment elevation myocardial infarction suspected of having a myocardial infarction earlier this week. She was taken to the cardiac catheterization lab and was found to have significant coronary artery disease including 100% proximal LAD lesion, diagonal one at 50- 60% stenosis, OM 2 and 50-60% stenosis in the RCA of 30-40% stenosis. She did undergo stent placement to the LAD. She was also found to have elevated LVEDP at 42. Suspected ischemic cardiomyopathy. Echocardiogram is pending. She was initiated on an insulin drip and 0.9 normal saline at 80 MLS per hour. Due to the elevated LVEDP usual DKA protocol has not been in place. Chest x-ray reveals mild hyperinflation of the lung suggestive of COPD/emphysema. Patchy left lower lobe opacity. Mild pulmonary vascular congestion. Computed tomography scan of the brain revealed no acute intracranial process. She is seen today in consultation in the intensive care unit. She is currently sitting up in bed. Awake and alert. Somewhat slow to respond. Still some confusion. Maintaining O2 saturations in the upper 90s on room air. Afebrile. Currently in sinus rhythm. Hemodynamically stable. Current blood glucose level CDLVIII. Sodium 133. Potassium 4.5. Creatinine 0.99. White count 13.1. Hemoglobin 12.2. She's been initiated on aspirin and Brilinta. Heparin for DVT prophylaxis. Review of Systems ROS unobtainable: due to mental status Past Medical History Past Medical History: Asthma, Diabetes Mellitus, Eye Disorder, Osteoarthritis (OA) Additional Past Medical History / Comment(s): insulin pump, jose luis glaucoma History of Any Multi-Drug Resistant Organisms: None Reported Past Surgical History: Breast Surgery, Heart Catheterization With Stent, Joint Replacement, Orthopedic Surgery, Tubal Ligation Additional Past Surgical History / Comment(s): jose luis breast reduction, rt arm surgery, rt ankle surgery, rt hip replacement. 03/18/2021 Cardiac cath @ [facility] with Stent x 1 to prox LAD Past Anesthesia/Blood Transfusion Reactions: Previous Problems w/ Anesthesia Additional Past Anesthesia/Blood Transfusion Reaction / Comment(s): slow to come out of anesthesia Date of Last Stent Placement:: 03/18/2021 Past Psychological History: No Psychological Hx Reported Smoking Status: Former smoker Past Alcohol Use History: None Reported Past Drug Use History: None Reported - Past Family History Mother Family Medical History: COPD, Hypertension Additional Family Medical History / Comment(s): "hardening of the lungs" Father Family Medical History: Diabetes Mellitus Additional Family Medical History / Comment(s): from "old age" Medications and Allergies Home Medications Medication Instructions Recorded Confirmed Type Albuterol Inhaler (Mhu) [Ventolin 1 - 2 puff INHALATION RT-Q6H PRN 05/26/18 05/30/18 History Hfa Inhaler] Albuterol Nebulized [Ventolin 2.5 mg INHALATION Q6H 05/26/18 05/30/18 History Nebulized] Insulin Aspart (For Pump) [NovoLOG 0.01 unit SQ-PUMP CONTINUOUS 05/26/18 05/30/18 History (For Pump)] Allergies Allergy/AdvReac Type Severity Reaction Status Date / Time No Known Allergies Allergy Verified 05/30/18 07:07 Physical Exam Vitals: Vital Signs Temp Pulse Resp BP Pulse Ox 03/18/21 08:00 87 15 131/83 97 03/18/21 07:00 72 22 145/81 98 03/18/21 06:00 69 36 H 133/65 98 03/18/21 05:30 96 19 133/65 97 03/18/21 05:00 79 14 137/73 97 03/18/21 04:40 90 26 H 123/64 98 03/18/21 04:30 97.5 F L 03/18/21 04:20 97.5 F L 74 23 128/68 97 03/18/21 02:40 87 18 138/73 94 L 03/18/21 01:43 85 16 137/67 95 03/18/21 00:02 97.7 F 96 16 145/78 95 Intake and Output 03/17/21 03/18/21 03/18/21 22:59 06:59 14:59 Intake Total 493.093 160 Output Total 150 Balance 343.093 160 Intake: IV 460 160 0.9 NaCl- 160 160 Intake, IV Titration 33.093 Amount Insulin Regular 100 unit 33.093 In Sodium Chloride 0.9% 100 ml @ 0.1 UNITS/KG/HR 10.079 mls/hr IV .Q10H2M [facility] Rx#:[id number] Output: Urine 150 Other: # Voids 0 Weight 102.9 kg GENERAL EXAM: Alert, pleasant 70-year-old female patient, somewhat confused and slow to respond, on 2 L nasal cannula, comfortable in no apparent distress. HEAD: Normocephalic. EYES: Normal reaction of pupils, equal size. NOSE: Clear with pink turbinates. THROAT: No erythema or exudates. NECK: No masses, no JVD. CHEST: No chest wall deformity. LUNGS: Equal air entry with faint crackles in the posterior bases. CVS: S1 and S2 normal with no audible murmur, regular rhythm. ABDOMEN: No hepatosplenomegaly, normal bowel sounds, no guarding or rigidity. SPINE: No scoliosis or deformity SKIN: No rashes CENTRAL NERVOUS SYSTEM: No focal deficits, tone is normal in all 4 extremities. EXTREMITIES: There is no peripheral edema. No clubbing, no cyanosis. Peripheral pulses are intact. Results - Laboratory Findings CBC and BMP: 03/18/21 05:19 03/18/21 05:19 Abnormal lab findings: Abnormal Labs 03/18/21 03/18/21 03/18/21 00:11 00:45 00:45 WBC 12.8 H Neutrophils # 11.0 H Lymphocytes # 0.9 L Sodium 128 L Chloride 93 L Carbon Dioxide 18 L BUN 37 H Creatinine 1.08 H Glucose 670 H* POC Glucose (mg/dL) >600 H Creatine Kinase 142 H Troponin I Ur Specific [place] Urine Glucose (UA) Urine Ketones Urine Blood Ur Leukocyte Esterase Urine RBC Urine Bacteria Urine Mucus 03/18/21 03/18/21 03/18/21 00:45 01:41 04:18 WBC Neutrophils # Lymphocytes # Sodium Chloride Carbon Dioxide BUN Creatinine Glucose POC Glucose (mg/dL) 585 H 483 H Creatine Kinase Troponin I 3.930 H* Ur Specific [place] Urine Glucose (UA) Urine Ketones Urine Blood Ur Leukocyte Esterase Urine RBC Urine Bacteria Urine Mucus 03/18/21 03/18/21 03/18/21 05:15 05:19 05:19 WBC Neutrophils # Lymphocytes # Sodium 133 L Chloride Carbon Dioxide 20 L BUN 33 H Creatinine Glucose 458 H POC Glucose (mg/dL) Creatine Kinase Troponin I 4.830 H* Ur Specific [place] 1.037 H Urine Glucose (UA) 4+ H Urine Ketones 3+ H Urine Blood Moderate H Ur Leukocyte Esterase Moderate H Urine RBC 11 H Urine Bacteria Rare H Urine Mucus Rare H 03/18/21 03/18/21 03/18/21 05:19 05:23 06:28 WBC 13.1 H Neutrophils # 11.2 H Lymphocytes # Sodium Chloride Carbon Dioxide BUN Creatinine Glucose POC Glucose (mg/dL) 454 H 460 H Creatine Kinase Troponin I Ur Specific [place] Urine Glucose (UA) Urine Ketones Urine Blood Ur Leukocyte Esterase Urine RBC Urine Bacteria Urine Mucus 03/18/21 07:17 WBC Neutrophils # Lymphocytes # Sodium Chloride Carbon Dioxide BUN Creatinine Glucose POC Glucose (mg/dL) 469 H Creatine Kinase Troponin I Ur Specific [place] Urine Glucose (UA) Urine Ketones Urine Blood Ur Leukocyte Esterase Urine RBC Urine Bacteria Urine Mucus - Diagnostic Findings Chest x-ray: image reviewed Assessment and Plan Assessment: 1 Altered mental status suspect secondary to diabetic ketoacidosis 2 Diabetic ketoacidosis suspected of not taking medication since 03/12/2021 3 Non-ST segment elevation myocardial infarction, suspect acute LA earlier this week 4 Coronary artery disease including 100% stenosis of the proximal LAD, 50-60% stenosis of diagonal one, that they to 60% stenosis of the OM 2, 30-40% stenosis of RCA. Status post stenting to the LAD. Elevated LVEDP at 42. 5 Diabetes mellitus, to be on insulin pump 6 Mild intermittent chronic bronchial asthma 7 Glaucoma 8 osteoarthritis Plan: The patient was seen and evaluated by Dr. Connors Chest x-ray and labs reviewed Decrease fluids to 0.9 normal saline at 40 mls per hour Continue with insulin drip Continue to monitor blood glucose levels Echocardiogram pending We will continue to follow and make further recommendations based on her clinical status I, the cosigning physician, performed a history & physical examination of the patient. Lungs sounds with faint crackles in the posterior bases. Maintaining good O2 saturations in the 90s on room air. I discussed the assessment and plan of care with my nurse practitioner, Tisha Jerez. I attest to the above consultation as dictated by her. Time with Patient: Greater than 30
[2021-03-18] MEDS: ATORVASTATIN 80 MG TAB PO SCH (09:06)
[2021-03-18] MEDS: HEPARIN SODIUM,PORCINE/PF 5,000 UNIT/0.5 ML SYRINGE SQ SCH ×2 (09:06→16:42)
[2021-03-18] MEDS: TICAGRELOR 90 MG TAB PO SCH ×2 (09:06→21:15)
[2021-03-18] MEDS: ASPIRIN 81 MG PO SCH (09:06)
[2021-03-18] MEDS ORDERED: D5-0.45% NACL WITH KCL 20MEQ/L 1,000 ML IV SCH (10:00)
[2021-03-18 10:04] LABS: Glucose,Whole Blood 259 mg/dL (75-99)
[2021-03-18 10:19] LABS: Potassium 4.1 mmol/L (3.5-5.1)
[2021-03-18 10:20] LABS: Calcium 9.4 mg/dL (8.4-10.2); Phosphorus 2.2 mg/dL (2.5-4.5)
[2021-03-18 11:05] LABS: Glucose,Whole Blood 201 mg/dL (75-99)
[2021-03-18 11:37] VITALS: BMI 35.5
[2021-03-18] MEDS: INSULIN DETEMIR (LEVEMIR) 100 UNIT/ML SYR SQ SCH ×2 (11:54→21:15)
[2021-03-18] MEDS: INSULIN ASPART (NovoLOG) 100 UNIT/ML VIAL SQ SCH ×5 (11:54→21:16)
--- NOTE | 2021-03-18 11:57 | P.HPIM ---
History of Present Illness H&P Date: 03/18/21 Chief Complaint: altered mental status History of present illness This is a 70-year-old patient of Dr. Mccord being seen in ICU with past medical history significant for reactive query asthma, diabetes mellitus, glaucoma, CAD with previous stent, previous smoker. Patient was seen in the emergency room to significantly elevated blood sugars. Patient presented to the ED for evaluations regarding not acting appropriately and not taking her medications. Patient's failure to respond results and will check the patient's [id number]. This arrived to the house she comes patient is not taking any of her medications since March 12 and has not had any contact with her family. Patient was upset about being brought to the emergency room. In complaint of chest pain. Patient was found to have elevated troponin and abnormal EKG. She was [facility] where she underwent a PCI with Dr. Goldstein and stenting to the proximal LAD. Patient was also found to be in DKA. At this time patient is functioning resting comfortably without any acute distress. Patient is able to answer questions appropriately stating that her insulin pump was not working appropriately and she is not taking any medication since March 12. Patient is unsure why she stopped taking her medications just that she didn't take them. Patient denies any chest pain at this time. Patient is afebrile. Heart rate 75, respirations 20, blood pressure 140/73, oxygen saturation is 97% on room air. Review Of Systems: Constitutional: No fever, no chills, no night sweats. No weight change. No weakness, fatigue or lethargy. No daytime sleepiness. EENT: No headache. No blurred vision or double vision, no loss of vision. No loss of Hearing, no ringing in the ears, no dizziness. No nasal drainage or congestion. No epistaxis. No sore throat. Lungs: No shortness of breath, cough, no sputum production. No wheezing. Cardiovascular: No chest pain, no lower extremity edema. No palpitations. No paroxysmal nocturnal dyspnea. No orthopnea. No lightheadedness or dizziness. No syncopal episodes. Abdominal: no abdominal discomfort. No nausea, vomiting. no diarrhea. No constipation. No bloody or tarry stools. no loss of appetite. Genitourinary: No dysuria, increased frequency, urgency. No urinary retention. Musculoskeletal: No myalgias. No muscle weakness, no gait dysfunction, no frequent falls. No back pain. No neck pain. Integumentary: No wounds, no lesions. No rash or pruritus. No unusual bruising. No change in hair or nails. Neurologic: No aphasia. No facial droop. No change in mentation. No head injury. No headache. No paralysis. No paresthesia. Psychiatric: No depression. No anxiety. No mood swings. Endocrine: No abnormal blood sugars. No weight change. No excessive sweating or thirst. 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 Neck HEENT: Supple, no lymphadenopathy, no thyroid enlargement, no carotid br uits. Lungs: Clear to auscultation without crackles or wheezes no rhonchi, no deformity. Chest Wall: Chest wall normal expansion with deep inspiration no tenderness and no deformity was found on exam, no costochondral pain or discomfort. Heart: Regular rate and rhythm, S1, S2 normal, no murmur, rub or gallop. Back: Symmetric, no curvature, ROM normal, no CVA tenderness. Abdomen: Soft, non-tender, no rebound or rigidity, no hepatosplenomegaly. Extremities: Extremities normal, atraumatic, no cyanosis or edema. Pulses: 2+ and symmetric. Skin: Skin color, texture, tugor normal, no rashes or lesions. Neurologic: Alert oriented x3 cranial nerves II through XII intact, no motor deficit, no abnormal balance or gait Assessment and plan 1.altered mental status suspected secondary to diabetic ketoacidosis. Currently on insulin drip, long-term insulin started and will d'c insulin drip. Continue to monitor blood sugars, 2. Non-STEMI suspect acute NH earlier this week, post PCI of proximal LAD. Brilinta 90 mg by mouth twice a day 3. Diabetic ketoacidosis related to noncompliance, as noted in #1. 4. Coronary artery disease: Mr. percent stenosis proximally post PCI, 50-60% stenosis of diagonal, 60% stenosis of OM 2, 30-40% stenosis RCA. Atorvastatin 80 mg by mouth daily, 5. Diabetes mellitus on insulin pump: Insulin pump is currently not working, patient will be started on Levemir 20 units twice a day, NovoLog 10 units before meals at bedtime, sliding scale, 6. Reactive asthma chronic, stable 7. Glaucoma., Stable 8. Osteoarthritis, Tylenol as needed 9. DVT prophylaxis. Heparin 5000 units every 8 hours 10. GI prophylaxis: Protonix 40 mg by mouth before meals breakfast CODE STATUS: Full code Patient will be admitted min. 2 night stay. Discharge plan: To be determined Impression and plan of care have been directed as dictated by the signing physician. Susy Chacon nurse practitioner acting as scribe for signing physician. Past Medical History Past Medical History: Asthma, Diabetes Mellitus, Eye Disorder, Osteoarthritis (OA) Additional Past Medical History / Comment(s): insulin pump, jose luis glaucoma History of Any Multi-Drug Resistant Organisms: None Reported Past Surgical History: Breast Surgery, Heart Catheterization With Stent, Joint Replacement, Orthopedic Surgery, Tubal Ligation Additional Past Surgical History / Comment(s): jose luis breast reduction, rt arm surgery, rt ankle surgery, rt hip replacement. 03/18/2021 Cardiac cath @ [facility] with Stent x 1 to prox LAD Past Anesthesia/Blood Transfusion Reactions: Previous Problems w/ Anesthesia Additional Past Anesthesia/Blood Transfusion Reaction / Comment(s): slow to come out of anesthesia Date of Last Stent Placement:: 03/18/2021 Past Psychological History: No Psychological Hx Reported Smoking Status: Former smoker Past Alcohol Use History: None Reported Past Drug Use History: None Reported - Past Family History Mother Family Medical History: COPD, Hypertension Additional Family Medical History / Comment(s): "hardening of the lungs" Father Family Medical History: Diabetes Mellitus Additional Family Medical History / Comment(s): from "old age" Medications and Allergies Home Medications Medication Instructions Recorded Confirmed Type Albuterol Inhaler (Mhu) [Ventolin 1 - 2 puff INHALATION RT-Q6H PRN 05/26/18 05/30/18 History Hfa Inhaler] Albuterol Nebulized [Ventolin 2.5 mg INHALATION Q6H 05/26/18 05/30/18 History Nebulized] Insulin Aspart (For Pump) [NovoLOG 0.01 unit SQ-PUMP CONTINUOUS 05/26/18 05/30/18 History (For Pump)] Allergies Allergy/AdvReac Type Severity Reaction Status Date / Time No Known Allergies Allergy Verified 05/30/18 07:07 Physical Exam Vitals: Vital Signs Temp Pulse Resp BP Pulse Ox 03/18/21 10:00 75 33 H 140/73 97 03/18/21 09:00 84 12 140/67 95 03/18/21 08:00 87 15 131/83 97 03/18/21 07:00 72 22 145/81 98 03/18/21 06:00 69 36 H 133/65 98 03/18/21 05:30 96 19 133/65 97 03/18/21 05:00 79 14 137/73 97 03/18/21 04:40 90 26 H 123/64 98 03/18/21 04:30 97.5 F L 03/18/21 04:20 97.5 F L 74 23 128/68 97 03/18/21 02:40 87 18 138/73 94 L 03/18/21 01:43 85 16 137/67 95 03/18/21 00:02 97.7 F 96 16 145/78 95 Intake and Output 03/17/21 03/18/21 03/18/21 22:59 06:59 14:59 Intake Total 493.093 217.793 Output Total 150 Balance 343.093 217.793 Intake: IV 460 200 0.9 NaCl- 160 200 Intake, IV Titration 33.093 17.793 Amount Insulin Regular 100 unit 33.093 In Sodium Chloride 0.9% 100 ml @ 0.1 UNITS/KG/HR 10.079 mls/hr IV .Q10H2M [facility] Rx#:[id number] Insulin Regular 100 unit 17.793 In Sodium Chloride 0.9% 100 ml @ Per Protocol IV .Q0M [facility] Rx#:[id number] Output: Urine 150 Other: Voiding Method Bedpan # Voids 0 Weight 102.9 kg 102.9 kg Results CBC & Chem 7: 03/18/21 05:19 03/18/21 09:49 Labs: Abnormal Lab Results - Last 24 Hours (Table) 03/18/21 03/18/21 03/18/21 Range/Units 00:11 00:45 00:45 WBC 12.8 H (3.8-10.6) k/uL Neutrophils # 11.0 H (1.3-7.7) k/uL Lymphocytes # 0.9 L (1.0-4.8) k/uL Sodium 128 L (137-145) mmol/L Chloride 93 L (98-107) mmol/L Carbon Dioxide 18 L (22-30) mmol/L BUN 37 H (7-17) mg/dL Creatinine 1.08 H (0.52-1.04) mg/dL Glucose 670 H* (74-99) mg/dL POC Glucose (mg/dL) >600 H (75-99) mg/dL Phosphorus (2.5-4.5) mg/dL Creatine Kinase 142 H (30-135) U/L Troponin I (0.000-0.034) ng/mL Ur Specific [place] (1.001-1.035) Urine Glucose (UA) (Negative) Urine Ketones (Negative) Urine Blood (Negative) Ur Leukocyte Esterase (Negative) Urine RBC (0-5) /hpf Urine Bacteria (None) /hpf Urine Mucus (None) /hpf 03/18/21 03/18/21 03/18/21 Range/Units 00:45 01:41 04:18 WBC (3.8-10.6) k/uL Neutrophils # (1.3-7.7) k/uL Lymphocytes # (1.0-4.8) k/uL Sodium (137-145) mmol/L Chloride (98-107) mmol/L Carbon Dioxide (22-30) mmol/L BUN (7-17) mg/dL Creatinine (0.52-1.04) mg/dL Glucose (74-99) mg/dL POC Glucose (mg/dL) 585 H 483 H (75-99) mg/dL Phosphorus (2.5-4.5) mg/dL Creatine Kinase (30-135) U/L Troponin I 3.930 H* (0.000-0.034) ng/mL Ur Specific [place] (1.001-1.035) Urine Glucose (UA) (Negative) Urine Ketones (Negative) Urine Blood (Negative) Ur Leukocyte Esterase (Negative) Urine RBC (0-5) /hpf Urine Bacteria (None) /hpf Urine Mucus (None) /hpf 03/18/21 03/18/21 03/18/21 Range/Units 05:15 05:19 05:19 WBC (3.8-10.6) k/uL Neutrophils # (1.3-7.7) k/uL Lymphocytes # (1.0-4.8) k/uL Sodium 133 L (137-145) mmol/L Chloride (98-107) mmol/L Carbon Dioxide 20 L (22-30) mmol/L BUN 33 H (7-17) mg/dL Creatinine (0.52-1.04) mg/dL Glucose 458 H (74-99) mg/dL POC Glucose (mg/dL) (75-99) mg/dL Phosphorus (2.5-4.5) mg/dL Creatine Kinase (30-135) U/L Troponin I 4.830 H* (0.000-0.034) ng/mL Ur Specific [place] 1.037 H (1.001-1.035) Urine Glucose (UA) 4+ H (Negative) Urine Ketones 3+ H (Negative) Urine Blood Moderate H (Negative) Ur Leukocyte Esterase Moderate H (Negative) Urine RBC 11 H (0-5) /hpf Urine Bacteria Rare H (None) /hpf Urine Mucus Rare H (None) /hpf 03/18/21 03/18/21 03/18/21 Range/Units 05:19 05:23 06:28 WBC 13.1 H (3.8-10.6) k/uL Neutrophils # 11.2 H (1.3-7.7) k/uL Lymphocytes # (1.0-4.8) k/uL Sodium (137-145) mmol/L Chloride (98-107) mmol/L Carbon Dioxide (22-30) mmol/L BUN (7-17) mg/dL Creatinine (0.52-1.04) mg/dL Glucose (74-99) mg/dL POC Glucose (mg/dL) 454 H 460 H (75-99) mg/dL Phosphorus (2.5-4.5) mg/dL Creatine Kinase (30-135) U/L Troponin I (0.000-0.034) ng/mL Ur Specific [place] (1.001-1.035) Urine Glucose (UA) (Negative) Urine Ketones (Negative) Urine Blood (Negative) Ur Leukocyte Esterase (Negative) Urine RBC (0-5) /hpf Urine Bacteria (None) /hpf Urine Mucus (None) /hpf 03/18/21 03/18/21 03/18/21 Range/Units 07:17 09:01 09:49 WBC (3.8-10.6) k/uL Neutrophils # (1.3-7.7) k/uL Lymphocytes # (1.0-4.8) k/uL Sodium 136 L (137-145) mmol/L Chloride (98-107) mmol/L Carbon Dioxide (22-30) mmol/L BUN 31 H (7-17) mg/dL Creatinine (0.52-1.04) mg/dL Glucose 227 H (74-99) mg/dL POC Glucose (mg/dL) 469 H 314 H (75-99) mg/dL Phosphorus 2.2 L (2.5-4.5) mg/dL Creatine Kinase (30-135) U/L Troponin I (0.000-0.034) ng/mL Ur Specific [place] (1.001-1.035) Urine Glucose (UA) (Negative) Urine Ketones (Negative) Urine Blood (Negative) Ur Leukocyte Esterase (Negative) Urine RBC (0-5) /hpf Urine Bacteria (None) /hpf Urine Mucus (None) /hpf 03/18/21 03/18/21 03/18/21 Range/Units 09:49 10:02 11:04 WBC (3.8-10.6) k/uL Neutrophils # (1.3-7.7) k/uL Lymphocytes # (1.0-4.8) k/uL Sodium (137-145) mmol/L Chloride (98-107) mmol/L Carbon Dioxide (22-30) mmol/L BUN (7-17) mg/dL Creatinine (0.52-1.04) mg/dL Glucose (74-99) mg/dL POC Glucose (mg/dL) 259 H 201 H (75-99) mg/dL Phosphorus (2.5-4.5) mg/dL Creatine Kinase (30-135) U/L Troponin I 5.550 H* (0.000-0.034) ng/mL Ur Specific [place] (1.001-1.035) Urine Glucose (UA) (Negative) Urine Ketones (Negative) Urine Blood (Negative) Ur Leukocyte Esterase (Negative) Urine RBC (0-5) /hpf Urine Bacteria (None) /hpf Urine Mucus (None) /hpf Thrombosis Risk Factor Assmnt - Choose All That Apply Each Factor Represents 1 point: Abnormal pulmonary function (COPD), Medical pt on bed rest, Obesity (BMI >25) Each Risk Factor Represents 2 Points: Age 61-74 years Other congenital or acquired thrombophilia - If yes, enter type in comment: No Thrombosis Risk Factor Assessment Total Risk Factor Score: 5 Thrombosis Risk Factor Assessment Level: High Risk
--- NOTE | 2021-03-18 12:58 | ECHOF ---
Referral Reason:s/p NSTEMI with stent LAD x1 MEASUREMENTS -------- HEIGHT: 132.1 cm WEIGHT: 99.8 kg BP: IVSd: 1.1 cm (0.6 - 1.1) LVIDd: 5.2 cm (3.9 - 5.3) LVPWd: 1.5 cm (0.6 - 1.1) IVSs: 1.1 cm LVIDs: 3.8 cm LVPWs: 1.5 cm LAESV Index (A-L): 36.84 ml/m Ao Diam: 3.1 cm (2.0 - 3.7) AV Cusp: 1.6 cm (1.5 - 2.6) LA Diam: 4.4 cm (2.7 - 3.8) MV EXCURSION: 19.913 mm (> 18.000) MV EF SLOPE: 90 mm/s (70 - 150) EPSS: 3.8 cm MV E Roman: 0.45 m/s MV DecT: 252 ms MV A Roman: 0.95 m/s MV E/A Ratio: 0.48 RAP: 5.00 mmHg RVSP: 27.98 mmHg FINDINGS -------- Sinus rhythm. This was a techncally difficult study with suboptimal views, , Lumason utilized for enhancement of im ages. Overall left ventricular systolic function is severely impaired with, an EF < 20%. Mid lateral LV w all motion is hypokinetic. Mid anteroseptal LV wall motion is hypokinetic. Apical anterior LV w all motion is hypokinetic. Apical lateral LV wall motion is hypokinetic. Apical inferior LV wal l motion is hypokinetic. Apical septum LV wall motion is normal. The right ventricle is normal in size. LA is moderately dilated 34-39 ml/m2 The right atrial size is normal. Small Pleural Effusion. CONCLUSIONS -------- 1. Overall left ventricular systolic function is severely impaired with, an EF < 20%. 2. Mid lateral LV wall motion is hypokinetic. 3. Mid anteroseptal LV wall motion is hypokinetic. 4. Apical lateral LV wall motion is hypokinetic. 5. Apical inferior LV wall motion is hypokinetic. 6. Apical septum LV wall motion is normal. 7. The right ventricle is normal in size. 8. LA is moderately dilated 34-39 ml/m2 9. The right atrial size is normal. 10. Small Pleural Effusion. [employer]: Shaniqua Arias RDCS
[2021-03-18] MEDS: lisinopriL 5 MG TAB PO SCH (13:14)
[2021-03-18] MEDS: METOPROLOL SUCCINATE (ER) 25 MG TAB.ER.24H PO SCH (13:14)
[2021-03-18 13:58] LABS: Glucose,Whole Blood 151 mg/dL (75-99)
[2021-03-18] MEDS ORDERED: ETOMIDATE 2 MG/ML 10 ML VIAL ONE (15:00)
[2021-03-18] MEDS ORDERED: SUCCINYLCHOLINE CHLORIDE VIAL 200 MG/10 ML VIAL IV ONE (15:00)
[2021-03-18 16:40] LABS: Glucose,Whole Blood 193 mg/dL (75-99)
--- NOTE | 2021-03-18 18:48 | PN ---
PROGRESS NOTE Niya is a 70-year-old lady that is admitted to hospital with diabetic ketoacidosis and had elevated troponin due to which she underwent cardiac catheterization angioplasty of LAD. This morning, she is doing well and is free of chest pain or difficulty in breathing. Blood sugars are better controlled. On exam, heart rate is 77 beats per minute. Blood pressure is 140/75. Respiratory rate is 18. Chest exam reveals good air entry bilaterally. Heart exam reveals first and second heart sounds. No gallop. Abdomen is soft. Exam of extremities did not reveal any edema. Peripheral pulses are felt. Radial artery access site appears normal. Labs show potassium of 4.1. Creatinine is 0.8. Troponin is 5.5. EKG shows sinus rhythm with evidence of ST-segment elevation in V1 to V3 suggestive of anteroseptal myocardial infarction. ASSESSMENT AND PLAN: Acute anterior wall myocardial infarction status post catheterization and angioplasty of LAD. PLAN: Patient is doing well. I am adding lisinopril 5 mg daily along with Toprol 25 mg daily and continue the aspirin, Lipitor and Brilinta. I will review the echo results and transfer her to selective care. MMODL / IJN: [id number] /
[2021-03-18 19:58] LABS: Glucose,Whole Blood 225 mg/dL (75-99)
[2021-03-18 20:52] LABS: Glucose,Whole Blood 215 mg/dL (75-99)
[2021-03-19] MEDS: ACETAMINOPHEN TAB 325 MG TAB PO PRN ×2 (02:08→17:53)
[2021-03-19] MEDS: HEPARIN SODIUM,PORCINE/PF 5,000 UNIT/0.5 ML SYRINGE SQ SCH ×4 (05:45→23:50)
[2021-03-19] MEDS: SODIUM CHLORIDE 0.9% 1,000 ML IV SCH ×2 (05:45→20:45)
[2021-03-19 06:36] LABS: Glucose,Whole Blood 91 mg/dL (75-99)
[2021-03-19] MEDS: INSULIN ASPART (NovoLOG) 100 UNIT/ML VIAL SQ SCH ×7 (06:49→20:44)
[2021-03-19] MEDS: PANTOPRAZOLE 40 MG TABLET PO SCH (06:54)
[2021-03-19 07:41] LABS: Basophils % (A) 0 %; Eosinophils # (A) 0.3 k/uL (0-0.7); Eosinophils % (A) 2 %; HCT 36.1 % (34.0-46.0); Lymphocytes # (A) 1.6 k/uL (1.0-4.8); Lymphocytes % (A) 9 %; MCH 30.1 pg (25.0-35.0); MCHC 33.2 g/dL (31.0-37.0); MCV 90.6 fL (80.0-100.0); Mean Platelet Volume 8.5; Monocytes % (A) 6 %; Neutrophils # (A) 14.7 k/uL (1.3-7.7); Neutrophils % (A) 83 %; Platelet Count 401 k/uL (150-450); RBC 3.98 m/uL (3.80-5.40); RDW 12.9 % (11.5-15.5); WBC 17.8 k/uL (3.8-10.6)
[2021-03-19 08:03] LABS: Calcium 9.4 mg/dL (8.4-10.2); Potassium 2.8 mmol/L (3.5-5.1)
[2021-03-19] MEDS: lisinopriL 5 MG TAB PO SCH (08:44)
[2021-03-19] MEDS: TICAGRELOR 90 MG TAB PO SCH ×2 (08:44→20:45)
[2021-03-19] MEDS: ATORVASTATIN 80 MG TAB PO SCH (08:44)
[2021-03-19] MEDS: METOPROLOL SUCCINATE (ER) 25 MG TAB.ER.24H PO SCH (08:44)
[2021-03-19] MEDS: ASPIRIN 81 MG PO SCH (08:45)
[2021-03-19] MEDS: INSULIN DETEMIR (LEVEMIR) 100 UNIT/ML SYR SQ SCH ×2 (08:45→20:45)
[2021-03-19 08:50] LABS: Glucose,Whole Blood 111 mg/dL (75-99)
[2021-03-19] MEDS ORDERED: ASPIRIN 325 MG TAB PO SCH (09:00)
--- NOTE | 2021-03-19 10:16 | P.PN ---
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 Patient underwent cardiac catheterization yesterday with Dr. Goldstein with PCI to the LAD. Patient examined this morning at the bedside. Patient denies chest pain or pressure. She denies shortness of breath. Denies dizziness or lightheadedness. Echocardiogram completed revealed ejection fraction less than 20%, small pleural effusion, mid lateral, mid anteroseptal, apical lateral, apical inferior LV wall hypokinesis. Apical septum LV wall motion is normal. Blood pressure 118/62. Telemetry reveals sinus mechanism. PHYSICAL EXAM: VITAL SIGNS: Reviewed. GENERAL: Well-developed in no acute distress. NECK: Supple. No JVD or thyromegaly LUNGS: Respirations even and unlabored. Lungs essentially clear to auscultation bilaterally. HEART: Regular rate and rhythm. S1 and S2 heard. EXTREMITIES: Normal range of motion. No clubbing or cyanosis. Peripheral pulses intact. No lower extremity edema. Right radial cath site with pulse present ASSESSMENT: Non-STEMI, status post PCI to LAD Ischemic cardiomyopathy, EF 20% Diabetes mellitus DKA Peripheral neuropathy PLAN: Continue current cardiac medications including aspirin 81 mg daily, atorvastatin 80 mg daily, lisinopril 5 mg daily, metoprolol succinate 25 mg daily, and Kathy linta 90 mg twice a day Remove TR band Case management consulted to verify Brilinta coverage Further recommendations pending patient course Nurse practitioner note has been reviewed by physician. Signing provider agrees with the documented findings, assessment, and plan of care. Objective - Vital Signs Vital signs: Vital Signs Temp 97.7 F 03/19/21 00:00 Pulse 69 03/19/21 04:00 Resp 18 03/19/21 04:00 BP 118/62 03/19/21 04:00 Pulse Ox 97 03/19/21 04:00 Intake & Output 03/18/21 03/19/21 03/19/21 18:59 06:59 18:59 Intake Total 457.793 Output Total 350 Balance 457.793 -350 Weight 102.9 kg 98.5 kg Intake: IV 200 0.9 NaCl- 200 Intake, IV Titration 17.793 Amount Insulin Regular 100 unit 17.793 In Sodium Chloride 0.9% 100 ml @ Per Protocol IV .Q0M [facility] Rx#:[id number] Oral 240 Output: Urine 350 Other: Voiding Method Bedpan Bedside Commode Bedpan # Voids 1 - Labs CBC & Chem 7: 03/19/21 07:15 03/19/21 07:15 Labs: Abnormal Lab Results - Last 24 Hours (Table) 03/18/21 03/18/21 03/18/21 Range/Units 09:49 09:49 11:04 WBC (3.8-10.6) k/uL Neutrophils # (1.3-7.7) k/uL Sodium 136 L (137-145) mmol/L Potassium (3.5-5.1) mmol/L BUN 31 H (7-17) mg/dL Glucose 227 H (74-99) mg/dL POC Glucose (mg/dL) 201 H (75-99) mg/dL Phosphorus 2.2 L (2.5-4.5) mg/dL Troponin I 5.550 H* (0.000-0.034) ng/mL 03/18/21 03/18/21 03/18/21 Range/Units 13:56 16:39 19:55 WBC (3.8-10.6) k/uL Neutrophils # (1.3-7.7) k/uL Sodium (137-145) mmol/L Potassium (3.5-5.1) mmol/L BUN (7-17) mg/dL Glucose (74-99) mg/dL POC Glucose (mg/dL) 151 H 193 H 225 H (75-99) mg/dL Phosphorus (2.5-4.5) mg/dL Troponin I (0.000-0.034) ng/mL 03/18/21 03/19/21 03/19/21 Range/Units 20:50 07:15 07:15 WBC 17.8 H (3.8-10.6) k/uL Neutrophils # 14.7 H (1.3-7.7) k/uL Sodium (137-145) mmol/L Potassium 2.8 L (3.5-5.1) mmol/L BUN 25 H (7-17) mg/dL Glucose (74-99) mg/dL POC Glucose (mg/dL) 215 H (75-99) mg/dL Phosphorus (2.5-4.5) mg/dL Troponin I (0.000-0.034) ng/mL 03/19/21 Range/Units 08:48 WBC (3.8-10.6) k/uL Neutrophils # (1.3-7.7) k/uL Sodium (137-145) mmol/L Potassium (3.5-5.1) mmol/L BUN (7-17) mg/dL Glucose (74-99) mg/dL POC Glucose (mg/dL) 111 H (75-99) mg/dL Phosphorus (2.5-4.5) mg/dL Troponin I (0.000-0.034) ng/mL
--- NOTE | 2021-03-19 10:34 | P.PN ---
Subjective Progress Note Date: 03/19/21 03/19/2021, the patient is on the medical floor. She got transferred out of the intensive care unit. She had a non-STEMI and the patient underwent cardiac catheterization and PCI to LAD. She also had a component of the care that was treated. She was under better control and she is back on long-term insulin for blood sugar control. Echocardiogram showed an ejection fraction of less than 20%. She also has small pleural effusion. BP is under adequate control. No chest pain. She is currently on room air oxygen. No nausea. No vomiting. No diarrhea. No abdominal pain. Potassium level needs to be replaced at the level is at 2.8. BUN is at 25 with a creatinine of 0.7. Anion gap is at 6. Glucose is 116. The patient has been on a combination of aspirin July 20. She is on metoprolol. She is on high-dose statins with Lipitor 80 mg by mouth daily. She is on Levemir insulin 20 units along with a sinus Coverage. Objective - Vital Signs Vital signs: Vital Signs Temp 97.7 F 03/19/21 00:00 Pulse 69 03/19/21 04:00 Resp 18 03/19/21 04:00 BP 118/62 03/19/21 04:00 Pulse Ox 97 03/19/21 04:00 Intake & Output 03/18/21 03/19/21 03/19/21 18:59 06:59 18:59 Intake Total 457.793 120 Output Total 350 Balance 457.793 -350 120 Weight 102.9 kg 98.5 kg Intake: IV 200 0.9 NaCl- 200 Intake, IV Titration 17.793 Amount Insulin Regular 100 unit 17.793 In Sodium Chloride 0.9% 100 ml @ Per Protocol IV .Q0M [facility] Rx#:[id number] Oral 240 120 Output: Urine 350 Other: Voiding Method Bedpan Bedside Commode Bedpan # Voids 1 - Exam GENERAL EXAM: Alert, pleasant 70-year-old female patient, somewhat confused and slow to respond, on RA HEAD: Normocephalic. EYES: Normal reaction of pupils, equal size. NOSE: Clear with pink turbinates. THROAT: No erythema or exudates. NECK: No masses, no JVD. CHEST: No chest wall deformity. LUNGS: Equal air entry with faint crackles in the posterior bases. CVS: S1 and S2 normal with no audible murmur, regular rhythm. ABDOMEN: No hepatosplenomegaly, normal bowel sounds, no guarding or rigidity. SPINE: No scoliosis or deformity SKIN: No rashes CENTRAL NERVOUS SYSTEM: No focal deficits, tone is normal in all 4 extremities. EXTREMITIES: There is no peripheral edema. No clubbing, no cyanosis. Peripheral pulses are intact. - Labs CBC & Chem 7: 03/19/21 07:15 03/19/21 07:15 Labs: Abnormal Lab Results - Last 24 Hours (Table) 03/18/21 03/18/21 03/18/21 Range/Units 09:49 11:04 13:56 WBC (3.8-10.6) k/uL Neutrophils # (1.3-7.7) k/uL Potassium (3.5-5.1) mmol/L BUN (7-17) mg/dL POC Glucose (mg/dL) 201 H 151 H (75-99) mg/dL Troponin I 5.550 H* (0.000-0.034) ng/mL 03/18/21 03/18/21 03/18/21 Range/Units 16:39 19:55 20:50 WBC (3.8-10.6) k/uL Neutrophils # (1.3-7.7) k/uL Potassium (3.5-5.1) mmol/L BUN (7-17) mg/dL POC Glucose (mg/dL) 193 H 225 H 215 H (75-99) mg/dL Troponin I (0.000-0.034) ng/mL 03/19/21 03/19/21 03/19/21 Range/Units 07:15 07:15 08:48 WBC 17.8 H (3.8-10.6) k/uL Neutrophils # 14.7 H (1.3-7.7) k/uL Potassium 2.8 L (3.5-5.1) mmol/L BUN 25 H (7-17) mg/dL POC Glucose (mg/dL) 111 H (75-99) mg/dL Troponin I (0.000-0.034) ng/mL Assessment and Plan Plan: 1 Altered mental status suspect secondary to diabetic ketoacidosis improved and anion gap is closed and the patient on long-acting insulin for now 2 Diabetic ketoacidosis suspected of not taking medication since 03/12/2021 3 Non-ST segment elevation myocardial infarction, suspect acute ME earlier this week, post PCI to LAD with stenting. The patient is currently on a Combivent r espiratory and purulent. There is also a component of cardiomyopathy with ejection fraction showed less than 20%. 4 Coronary artery disease including 100% stenosis of the proximal LAD, 50-60% stenosis of diagonal one, that they to 60% stenosis of the OM 2, 30-40% stenosis of RCA. Status post stenting to the LAD. Elevated LVEDP at 42. 5 Diabetes mellitus, to be on insulin pump on outpatient basis 6 Mild intermittent chronic bronchial asthma 7 Glaucoma 8 osteoarthritis Plan: IV fluids to KVO Continue cardiac treatment long-acting insulin has been initiated and anion gap is closed She is currently on a telemetry unit and she has left intensive care units. We will continue to follow and make further recommendations based on her clinical status
--- NOTE | 2021-03-19 11:09 | P.PN ---
Subjective Progress Note Date: 03/19/21 History of present illness This is a 70-year-old patient of Dr. Mccord being seen in ICU with past medical history significant for reactive query asthma, diabetes mellitus, glaucoma, CAD with previous stent, previous smoker. Patient was seen in the emergency room to significantly elevated blood sugars. Patient presented to the ED for evaluations regarding not acting appropriately and not taking her medications. Patient's failure to respond results and will check the patient's [id number]. This arrived to the house she comes patient is not taking any of her medications since March 12 and has not had any contact with her family. Patient was upset about being brought to the emergency room. In complaint of chest pain. Patient was found to have elevated troponin and abnormal EKG. She was taken to the [facility] where she underwent a PCI with Dr. Goldstein and stenting to the proximal LAD. Patient was also found to be in DKA. At this time patient is functioning resting comfortably without any acute distress. Patient is able to answer questions appropriately stating that her insulin pump was not working appropriately and she is not taking any medication since March 12. Patient is unsure why she stopped taking her medications just that she didn't take them. Patient denies any chest pain at this time. Patient is afebrile. Heart rate 75, respirations 20, blood pressure 140/73, oxygen saturation is 97% on room air. 03/19: Patient found resting in bed on 3 south. She is able to recount the episodes from yesterday and the day before. Echocardiogram shows EF of 20%, LV wall function hyperkinetic, LA is moderately dilated 34-39 mL/M2, small pleural effusion. Alborn addressed with patient living alone. She may need extra assistance from her brother and [id number]. Phone call to brother will be made this afternoon Dr. Mccord. Patient denies any chest pain or difficulty breathing. Blood sugars have been managed. Unsure patient will be able to carolyn ntain a insulin pump upon discharge. Patient remains afebrile, pulse rate 73, respirations 18, blood pressure 113/59 pulse oxing 98% on room air. Review Of Systems: Constitutional: No fever, no chills, no night sweats. No weight change. No weakness, fatigue or lethargy. No daytime sleepiness. EENT: No headache. No blurred vision or double vision, no loss of vision. No loss of Hearing, no ringing in the ears, no dizziness. No nasal drainage or congestion. No epistaxis. No sore throat. Lungs: No shortness of breath, cough, no sputum production. No wheezing. Cardiovascular: No chest pain, no lower extremity edema. No palpitations. No paroxysmal nocturnal dyspnea. No orthopnea. No lightheadedness or dizziness. No syncopal episodes. Abdominal: no abdominal discomfort. No nausea, vomiting. no diarrhea. No constipation. No bloody or tarry stools. no loss of appetite. Genitourinary: No dysuria, increased frequency, urgency. No urinary retention. Musculoskeletal: No myalgias. No muscle weakness, no gait dysfunction, no frequent falls. No back pain. No neck pain. Integumentary: No wounds, no lesions. No rash or pruritus. No unusual bruising . No change in hair or nails. Neurologic: No aphasia. No facial droop. No change in mentation. No head injury. No headache. No paralysis. No paresthesia. Psychiatric: No depression. No anxiety. No mood swings. Endocrine: No abnormal blood sugars. No weight change. No excessive sweating or thirst. Physical examination General Appearance: Alert, cooperative, no distress, appears stated age. Neck HEENT: Supple, no lymphadenopathy, no thyroid enlargement, no carotid b ruits. Lungs: Clear to auscultation without crackles or wheezes no rhonchi, no deformity. Chest Wall: Chest wall normal expansion with deep inspiration no tenderness and no deformity was found on exam, no costochondral pain or discomfort. Heart: Regular rate and rhythm, S1, S2 normal, no murmur, rub or gallop. Back: Symmetric, no curvature, ROM normal, no CVA tenderness. Abdomen: Soft, non-tender, no rebound or rigidity, no hepatosplenomegaly. Extremities: Extremities normal, atraumatic, no cyanosis or edema. Pulses: 2+ and symmetric. Skin: Skin color, texture, tugor normal, no rashes or lesions. Neurologic: Alert oriented x3 cranial nerves II through XII intact, no motor deficit, no abnormal balance or gait Assessment and plan 1.altered mental status suspected secondary to diabetic ketoacidosis. Insulin drip DC'd, blood sugars ranging 90-111, temperature 20 units twice a day, NovoLog 10 units before meals 3 times a day with a NovoLog sliding scale Continue to monitor blood sugars, 2. Non-STEMI suspect acute [place] earlier this week, post PCI of proximal LAD. Brilinta 90 mg by mouth twice a day 3. Diabetic ketoacidosis related to noncompliance, as noted in #1. 4. Coronary artery disease: percent stenosis proximally post PCI, 50-60% stenosis of diagonal, 60% stenosis of OM 2, 30-40% stenosis RCA. Atorvastatin 80 mg by mouth daily, 5. Diabetes mellitus on insulin pump: Insulin pump is currently not working, patient will be started on Levemir 20 units twice a day, NovoLog 10 units before meals at bedtime, sliding scale, 6. Reactive asthma chronic, stable 7. Glaucoma., Stable 8. Osteoarthritis, Tylenol as needed 9. DVT prophylaxis. Heparin 5000 units every 8 hours 10. GI prophylaxis: Protonix 40 mg by mouth before meals breakfast CODE STATUS: Full code Patient will be admitted min. 2 night stay. Discharge plan: Possibly home in the next few days Impression and plan of care have been directed as dictated by the signing physician. Susy Chacon nurse practitioner acting as scribe for signing physician. Objective - Vital Signs Vital signs: Vital Signs Temp 98.1 F 03/19/21 08:00 Pulse 73 03/19/21 08:00 Resp 18 03/19/21 08:00 BP 113/59 03/19/21 08:00 Pulse Ox 98 03/19/21 08:00 Intake & Output 03/18/21 03/19/21 03/19/21 18:59 06:59 18:59 Intake Total 457.793 120 Output Total 350 Balance 457.793 -350 120 Weight 102.9 kg 98.5 kg Intake: IV 200 0.9 NaCl- 200 Intake, IV Titration 17.793 Amount Insulin Regular 100 unit 17.793 In Sodium Chloride 0.9% 100 ml @ Per Protocol IV .Q0M [facility] Rx#:[id number] Oral 240 120 Output: Urine 350 Other: Voiding Method Bedpan Bedside Commode Bedside Commode Bedpan Bedpan # Voids 1 - Labs CBC & Chem 7: 03/19/21 07:15 03/19/21 07:15 Labs: Abnormal Lab Results - Last 24 Hours (Table) 03/18/21 03/18/2103/18/21 Range/Units 11:04 13:56 16:39 WBC (3.8-10.6) k/uL Neutrophils # (1.3-7.7) k/uL Potassium (3.5-5.1) mmol/L BUN (7-17) mg/dL POC Glucose (mg/dL) 201 H 151 H 193 H (75-99) mg/dL 03/18/21 03/18/21 03/19/21 Range/Units 19:55 20:50 07:15 WBC (3.8-10.6) k/uL Neutrophils # (1.3-7.7) k/uL Potassium 2.8 L (3.5-5.1) mmol/L BUN 25 H (7-17) mg/dL POC Glucose (mg/dL) 225 H 215 H (75-99) mg/dL 03/19/21 03/19/21 Range/Units 07:15 08:48 WBC 17.8 H (3.8-10.6) k/uL Neutrophils # 14.7 H (1.3-7.7) k/uL Potassium (3.5-5.1) mmol/L BUN (7-17) mg/dL POC Glucose (mg/dL) 111 H (75-99) mg/dL
[2021-03-19 11:52] LABS: Chol/HDL Ratio 3.83
[2021-03-19 12:03] LABS: Glucose,Whole Blood 119 mg/dL (75-99)
[2021-03-19 17:23] LABS: Glucose,Whole Blood 92 mg/dL (75-99)
[2021-03-19 20:29] LABS: Glucose,Whole Blood 110 mg/dL (75-99)
[2021-03-20] MEDS: PANTOPRAZOLE 40 MG TABLET PO SCH (05:48)
[2021-03-20 06:05] LABS: Glucose,Whole Blood 99 mg/dL (75-99)
[2021-03-20 06:08] LABS: Basophils % (A) 0 %; Eosinophils # (A) 0.3 k/uL (0-0.7); Eosinophils % (A) 2 %; HCT 33.3 % (34.0-46.0); HGB 11.2 gm/dL (11.4-16.0); Lymphocytes # (A) 1.4 k/uL (1.0-4.8); Lymphocytes % (A) 10 %; MCH 30.8 pg (25.0-35.0); MCHC 33.6 g/dL (31.0-37.0); MCV 91.5 fL (80.0-100.0); Mean Platelet Volume 8.6; Monocytes # (A) 0.9 k/uL (0-1.0); Monocytes % (A) 6 %; Neutrophils % (A) 81 %; Platelet Count 370 k/uL (150-450); RBC 3.64 m/uL (3.80-5.40); WBC 14.8 k/uL (3.8-10.6)
[2021-03-20 06:22] LABS: Calcium 9.1 mg/dL (8.4-10.2); Potassium 3.9 mmol/L (3.5-5.1)
[2021-03-20] MEDS: INSULIN ASPART (NovoLOG) 100 UNIT/ML VIAL SQ SCH ×5 (06:26→20:45)
[2021-03-20] MEDS: INSULIN DETEMIR (LEVEMIR) 100 UNIT/ML SYR SQ SCH (06:44)
[2021-03-20] MEDS: HEPARIN SODIUM,PORCINE/PF 5,000 UNIT/0.5 ML SYRINGE SQ SCH ×3 (09:49→23:41)
[2021-03-20] MEDS: lisinopriL 5 MG TAB PO SCH (09:50)
[2021-03-20] MEDS: ASPIRIN 81 MG PO SCH (09:50)
[2021-03-20] MEDS: TICAGRELOR 90 MG TAB PO SCH ×2 (09:50→20:44)
[2021-03-20] MEDS: ATORVASTATIN 80 MG TAB PO SCH (09:50)
[2021-03-20] MEDS: METOPROLOL SUCCINATE (ER) 25 MG TAB.ER.24H PO SCH (09:50)
--- NOTE | 2021-03-20 11:03 | P.DS ---
Providers Date of admission: 03/18/21 01:13 Expected date of discharge: 03/20/21 Attending physician: Junior Mccord Consults: 03/18/21 02:16 Consult Physician Urgent Consulting Provider: Victor Hugo Goldstein Consult Reason/Comments: ACS Do you want consulting provider notified?: Yes 03/18/21 04:15 Consult Physician Routine Consulting Provider: [facility] Consult Reason/Comments: Post Interventional patient Do you want consulting provider notified?: Already Contacted 03/18/21 04:20 Consult Physician Routine Consulting Provider: Lyric Connors Consult Reason/Comments: ICU management for DKA Do you want consulting provider notified?: Yes Primary care physician: [facility] Course: History of present illness This is a 70-year-old patient of Dr. Mccord being seen in ICU with past medical history significant for reactive query asthma, diabetes mellitus, glaucoma, CAD with previous stent, previous smoker. Patient was seen in the emergency room to significantly elevated blood sugars. Patient presented to the ED for evaluations regarding not acting appropriately and not taking her medications. Patient's failure to respond results and will check the patient's [id number]. This arrived to the house she comes patient is not taking any of her medications since March 12 and has not had any contact with her family. Patient was upset about being brought to the emergency room. In complaint of chest pain. Patient was found to have elevated troponin and abnormal EKG. She was taken to the [facility] where she underwent a PCI with Dr. Goldstein and stenting to the proximal LAD. Patient was also found to be in DKA. At this time patient is functioning resting comfortably without any acute distress. Patient is able to answer questions appropriately stating that her insulin pump was not working appropriately and she is not taking any medication since March 12. Patient is unsure why she stopped taking her medications just that she didn't take them. Patient denies any chest pain at this time. Patient is afebrile. Heart rate 75, respirations 20, blood pressure 140/73, oxygen saturation is 97% on room air. 03/19: Patient found resting in bed on 3 south. She is able to recount the episodes from yesterday and the day before. Echocardiogram shows EF of 20%, LV wall function hyperkinetic, LA is moderately dilated 34-39 mL/M2, small pleural effusion. Fabi addressed with patient living alone. She may need extra assistance from her brother and [id number]. Phone call to brother will be made this afternoon Dr. Mccord. Patient denies any chest pain or difficulty breathing. Blood sugars have been managed. Unsure patient will be able to maintain a insulin pump upon discharge. Patient remains afebrile, pulse rate 73, respirations 18, blood pressure 113/59 pulse oxing 98% on room air. 03/20: Patient denies any chest pain or chest pressure. She has been seen by cardiology this morning and recommendations are to continue current cardiac medications and patient will require LifeVest at the time of discharge to prevent sudden cardiac due to severe cardiomyopathy. manager communication is making arrangements for LifeVest. Patient has been afebrile, heart rate 86, blood pressure 119/79, pulse ox 94% on room air. Repeat blood work reveals BUN 25 creatinine 0.9. Blood sugars running between 92 and 193. Electrolytes within normal range. WBC 14.8, hemoglobin 11.2, platelet count 370. Plan is for discharge to rehab today once LifeVest is obtained and all arrangements are completed. Assessment and plan 1. Metabolic encephalopathy secondary to diabetic ketoacidosis. 2. Non-STEMI suspect acute [place] earlier this week, post PCI of proximal LAD. 3. Diabetic ketoacidosis related to noncompliance, as noted in #1. 4. Coronary artery disease status post heart catheterization with LAD 100% stenosis, diagonal 50-60% stenosis, OM1 250-60% stenosis, RCA 30-40% stenosis status post proximal LAD stent. 5. Diabetes mellitus on insulin pump: Insulin pump is currently not working 6. Reactive asthma chronic, stable 7. Glaucoma. 8. Osteoarthritis, generalized . [facility] Impression and plan of care have been directed as dictated by the signing physician. Lata Key nurse practitioner acting as scribe for signing leonardo michael. Patient Condition at Discharge: Good Plan - Discharge Summary Discharge Rx Participant: No New Discharge Prescriptions: New Insulin Detemir (Levemir) [Levemir] 10 unit SQ HS syr Atorvastatin [Lipitor] 80 mg PO DAILY #30 tab Nitroglycerin Sl Tabs [Nitrostat] 0.4 mg SUBLINGUAL Q5M PRN tab PRN Reason: Chest Pain Metoprolol Succinate (ER) [Toprol XL] 12.5 mg PO DAILY #0 tab.er.24h Ticagrelor [Brilinta] 90 mg PO BID #60 tab Aspirin 81 mg PO DAILY chew INSULIN ASPART (NovoLOG) [NovoLOG (formulary)] 0 unit SQ ACHS vial lisinopriL [Zestril] 5 mg PO DAILY #0 tab Spironolactone [Aldactone] 25 mg PO DAILY #90 tablet Continue INSULIN ASPART (NovoLOG) [NovoLOG (formulary)] See Protocol SQ DIRECTED Albuterol Inhaler [Ventolin Hfa Inhaler] 1 - 2 puff INHALATION RT-Q6H PRN PRN Reason: Shortness Of Breath Brimonidine Tartrate [Alphagan P 0.2% Ophth Soln] 1 drop BOTH EYES BID Dorzolamide 2% [Trusopt 2%] 1 drop BOTH EYES BID Discontinued Atorvastatin Calcium [Lipitor] 10 mg PO DAILY Discharge Medication List Albuterol Inhaler [Ventolin Hfa Inhaler] 1 - 2 puff INHALATION RT-Q6H PRN 03/18/21 [History] Brimonidine Tartrate [Alphagan P 0.2% Ophth Soln] 1 drop BOTH EYES BID 03/18/21 [History] Dorzolamide 2% [Trusopt 2%] 1 drop BOTH EYES BID 03/18/21 [History] INSULIN ASPART (NovoLOG) [NovoLOG (formulary)] See Protocol SQ DIRECTED 03/18/21 [History] Ticagrelor [Brilinta] 90 mg PO BID #60 tab 03/19/21 [Rx] Aspirin 81 mg PO DAILY chew 03/20/21 [Rx] Atorvastatin [Lipitor] 80 mg PO DAILY #30 tab 03/20/21 [Rx] INSULIN ASPART (NovoLOG) [NovoLOG (formulary)] 0 unit SQ ACHS vial 03/20/21 [Rx] Insulin Detemir (Levemir) [Levemir] 10 unit SQ HS syr 03/20/21 [Rx] Metoprolol Succinate (ER) [Toprol XL] 12.5 mg PO DAILY #0 tab.er.24h 03/20/21 [Rx] Nitroglycerin Sl Tabs [Nitrostat] 0.4 mg SUBLINGUAL Q5M PRN tab 03/20/21 [Rx] Spironolactone [Aldactone] 25 mg PO DAILY #90 tablet 03/20/21 [Rx] lisinopriL [Zestril] 5 mg PO DAILY #0 tab 03/20/21 [Rx] Follow up Appointment(s)/Referral(s): Victor Hugo Goldstein DO [STAFF PHYSICIAN] - 1 Week Junior Mccord MD [Primary Care Provider] - 1 Week (at [facility]) Activity/Diet/Wound Care/Special Instructions: LifeVest order pending - Discharge Disposition: TRANSFER TO SNF/ECF
--- NOTE | 2021-03-20 11:51 | P.PN ---
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 Patient underwent cardiac catheterization yesterday with Dr. Goldstein with PCI to the LAD. Patient examined this morning at the bedside. Patient denies chest pain or pressure. She denies shortness of breath. Denies dizziness or lightheadedness. Echocardiogram completed revealed ejection fraction less than 20%, small pleural effusion, mid lateral, mid anteroseptal, apical lateral, apical inferior LV wall hypokinesis. Apical septum LV wall motion is normal. Blood pressure 118/62. Telemetry reveals sinus mechanism. 03/20/2021 Patient examined this morning at the bedside. Patient denies chest pain or pressure. She denies shortness of breath. Vital signs are stable. PHYSICAL EXAM: VITAL SIGNS: Reviewed. GENERAL: Well-developed in no acute distress. NECK: Supple. No JVD or thyromegaly LUNGS: Respirations even and unlabored. Lungs essentially clear to auscultation bilaterally. HEART: Regular rate and rhythm. S1 and S2 heard. EXTREMITIES: Normal range of motion. No clubbing or cyanosis. Peripheral pulses intact. No lower extremity edema. Right radial cath site with pulse present ASSESSMENT: Non-STEMI, status post PCI to LAD Ischemic cardiomyopathy, EF 20% Diabetes mellitus DKA Peripheral neuropathy PLAN: Continue current cardiac medications including aspirin 81 mg daily, atorvastatin 80 mg daily, lisinopril 5 mg daily, metoprolol succinate 25 mg daily, and Brilinta 90 mg twice a day Add Aldactone 25 mg daily Patient will require Lifevest at the time of discharge to prevent sudden cardiac due to severe cardiomyopathy Further recommendations pending patient course Nurse practitioner note has been reviewed by physician. Signing provider agrees with the documented findings, assessment, and plan of care. Objective - Vital Signs Vital signs: Vital Signs Temp 98.1 F 03/20/21 08:00 Pulse 84 03/20/21 11:20 Resp 18 03/20/21 11:20 BP 100/62 03/20/21 11:20 Pulse Ox 94 L 03/20/21 11:20 Intake & Output 03/19/21 03/20/21 03/20/21 18:59 06:59 18:59 Intake Total 480 240 Output Total 200 Balance 280 240 Weight 100 kg Intake: Intake, IV Titration 240 Amount Sodium Chloride 0.9% 1, 240 000 ml @ 20 mls/hr IV . Q24H [facility] Rx#:[id number] Oral 480 Output: Urine 200 Other: Voiding Method Bedside Commode Bedside Commode Bedside Commode Bedpan Bedpan Bedpan # Voids 1 - Labs CBC & Chem 7: 03/20/21 05:41 03/20/21 05:41 Labs: Abnormal Lab Results - Last 24 Hours (Table) 03/19/21 03/19/21 03/19/21 Range/Units 07:15 12:01 20:10 WBC (3.8-10.6) k/uL RBC (3.80-5.40) m/uL Hgb (11.4-16.0) gm/dL Hct (34.0-46.0) % Neutrophils # (1.3-7.7) k/uL BUN (7-17) mg/dL Glucose (74-99) mg/dL POC Glucose (mg/dL) 119 H 110 H (75-99) mg/dL HDL Cholesterol 36.0 L (40.0-60.0) mg/dL 03/20/21 03/20/21 Range/Units 05:41 05:41 WBC 14.8 H (3.8-10.6) k/uL RBC 3.64 L (3.80-5.40) m/uL Hgb 11.2 L (11.4-16.0) gm/dL Hct 33.3 L (34.0-46.0) % Neutrophils # 12.0 H (1.3-7.7) k/uL BUN 25 H (7-17) mg/dL Glucose 109 H (74-99) mg/dL POC Glucose (mg/dL) (75-99) mg/dL HDL Cholesterol (40.0-60.0) mg/dL Microbiology - Last 24 Hours (Table) 03/18/21 23:08 Urine Culture - Preliminary Urine,Voided
[2021-03-20 11:56] LABS: Glucose,Whole Blood 193 mg/dL (75-99)
[2021-03-20] MEDS: SPIRONOLACTONE 25 MG TAB PO SCH (13:14)
[2021-03-20] MEDS: ACETAMINOPHEN TAB 325 MG TAB PO PRN (13:25)
--- NOTE | 2021-03-20 13:36 | P.PN ---
Subjective Progress Note Date: 03/20/21 Principal diagnosis: Altered mental status related to DKA, improved 03/19/2021, the patient is on the medical floor. She got transferred out of the intensive care unit. She had a non-STEMI and the patient underwent cardiac catheterization and PCI to LAD. She also had a component of the care that was treated. She was under better control and she is back on long-term insulin for blood sugar control. Echocardiogram showed an ejection fraction of less than 20%. She also has small pleural effusion. BP is under adequate control. No chest pain. She is currently on room air oxygen. No nausea. No vomiting. No diarrhea. No abdominal pain. Potassium level needs to be replaced at the level is at 2.8. BUN is at 25 with a creatinine of 0.7. Anion gap is at 6. Glucose is 116. The patient has been on a combination of aspirin July 20. She is on metoprolol. She is on high-dose statins with Lipitor 80 mg by mouth daily. She is on Levemir insulin 20 units along with a sinus Coverage. On 03/20/2021 patient seen in follow-up on selective care unit, she is resting in bed, she is on room air, she is breathing comfortably, room air pulse ox is 94-99%, hemodynamically she is stable, she is answering questions, however she may still be a bit confused. No fever or chills, lung sounds are clear, no cough or congestion. Her labs have been reviewed, her white count is improving, is down to 14.8, hemoglobin is 11.2, electrolytes are within normal limits, B1 is 25, creatinine 0.9. Patient continues on Rocephin for possibility of urinary tract infection, urine culture is showing gram-negative bacilli and Vilma albicans. Objective - Vital Signs Vital signs: Vital Signs Temp 98.1 F 03/20/21 08:00 Pulse 84 03/20/21 11:20 Resp 18 03/20/21 11:20 BP 100/62 03/20/21 11:20 Pulse Ox 94 L 03/20/21 11:20 Intake & Output 03/19/21 03/20/21 03/20/21 18:59 06:59 18:59 Intake Total 480 240 120 Output Total 200 Balance 280 240 120 Weight 100 kg Intake: Intake, IV Titration 240 Amount Sodium Chloride 0.9% 1, 240 000 ml @ 20 mls/hr IV . Q24H [facility] Rx#:[id number] Oral 480 120 Output: Urine 200 Other: Voiding Method Bedside Commode Bedside Commode Bedside Commode Bedpan Bedpan Bedpan # Voids 1 1 - Exam GENERAL EXAM: Alert, very pleasant, 70-year-old white female, a bit confused, but appears to be comfortable in no apparent distress. HEAD: Normocephalic/atraumatic. EYES: Normal reaction of pupils, equal size. Conjunctiva pink, sclera white. NOSE: Clear with pink turbinates. THROAT: No erythema or exudates. NECK: No masses, no JVD, no thyroid enlargement, no adenopathy. CHEST: No chest wall deformity. Symmetrical expansion. LUNGS: Equal air entry with no crackles, wheeze, rhonchi or dullness. CVS: Regular rate and rhythm, normal S1 and S2, no gallops, no murmurs, no rubs ABDOMEN: Soft, nontender. No hepatosplenomegaly, normal bowel sounds, no guarding or rigidity. EXTREMITIES: No clubbing, no edema, no cyanosis, 2+ pulses and upper and lower extremities. MUSCULOSKELETAL: Muscle strength and tone normal. SPINE: No scoliosis or deformity SKIN: No rashes CENTRAL NERVOUS SYSTEM: Alert and oriented -3. No focal deficits, tone is normal in all 4 extremities. PSYCHIATRIC: Alert and oriented -3. Appropriate affect. Intact judgment and insight. - Labs CBC & Chem 7: 03/20/21 05:41 03/20/21 05:41 Labs: Abnormal Lab Results - Last 24 Hours (Table) 03/19/21 03/20/21 03/20/21 Range/Units 20:10 05:41 05:41 WBC 14.8 H (3.8-10.6) k/uL RBC 3.64 L (3.80-5.40) m/uL Hgb 11.2 L (11.4-16.0) gm/dL Hct 33.3 L (34.0-46.0) % Neutrophils # 12.0 H (1.3-7.7) k/uL BUN 25 H (7-17) mg/dL Glucose 109 H (74-99) mg/dL POC Glucose (mg/dL) 110 H (75-99) mg/dL 03/20/21 Range/Units 11:54 WBC (3.8-10.6) k/uL RBC (3.80-5.40) m/uL Hgb (11.4-16.0) gm/dL Hct (34.0-46.0) % Neutrophils # (1.3-7.7) k/uL BUN (7-17) mg/dL Glucose (74-99) mg/dL POC Glucose (mg/dL) 193 H (75-99) mg/dL Microbiology - Last 24 Hours (Table) 03/18/21 23:08 Urine Culture - Preliminary Urine,Voided Vilma albicans Gram Neg Bacilli Assessment and Plan Plan: 1 Altered mental status suspect secondary to diabetic ketoacidosis improved and anion gap is closed and the patient on long-acting insulin for now 2 Diabetic ketoacidosis suspected of not taking medication since 03/12/2021, resolved 3 Non-ST segment elevation myocardial infarction, suspect acute [place] earlier this week, post PCI to LAD with stenting. The patient is currently on a Combivent respiratory and purulent. There is also a component of cardiomyopathy with ejection fraction showed less than 20%. 4 Coronary artery disease including 100% stenosis of the proximal LAD, 50-60% stenosis of diagonal one, that they to 60% stenosis of the OM 2, 30-40% stenosis of RCA. Status post stenting to the LAD. Elevated LVEDP at 42. 5 Diabetes mellitus, to be on insulin pump on outpatient basis 6 Mild intermittent chronic bronchial asthma 7 Glaucoma 8 osteoarthritis 9 acute urinary tract infection related to gram-negative bacilli, final culture is pending Plan: Continue current medical treatment Maintain safety precautions Continue antibiotics No pulmonary issues Breathing comfortably Patient is on room air Awaiting final urine culture results Vital signs are stable I performed a history & physical examination of the patient and discussed their management with my nurse practitioner, Kavita Asher. I reviewed the nurse practitioner's note and agree with the documented findings and plan of care. Lung sounds are positive for diminished breath sounds throughout the lung villeda. The findings and the impression was discussed with the patient. I attest to the documentation by the nurse practitioner. Time with Patient: Less than 30
--- NOTE | 2021-03-20 16:19 | P.PN ---
Subjective Progress Note Date: 03/20/21 History of present illness This is a 70-year-old patient of Dr. Mccord being seen in ICU with past medical history significant for reactive query asthma, diabetes mellitus, glaucoma, CAD with previous stent, previous smoker. Patient was seen in the emergency room to significantly elevated blood sugars. Patient presented to the ED for evaluations regarding not acting appropriately and not taking her medications. Patient's failure to respond results and will check the patient's [id number]. This arrived to the house she comes patient is not taking any of her medications since March 12 and has not had any contact with her family. Patient was upset about being brought to the emergency room. In complaint of chest pain. Patient was found to have elevated troponin and abnormal EKG. She was taken to the [facility] where she underwent a PCI with Dr. Goldstein and stenting t o the proximal LAD. Patient was also found to be in DKA. At this time patient is functioning resting comfortably without any acute distress. Patient is able to answer questions appropriately stating that her insulin pump was not working appropriately and she is not taking any medication since March 12. Patient is unsure why she stopped taking her medications just that she didn't take them. Patient denies any chest pain at this time. Patient is afebrile. Heart rate 75, respirations 20, blood pressure 140/73, oxygen saturation is 97% on room air. 03/19: Patient found resting in bed on 3 [address]. She is able to recount the episodes from yesterday and the day before. Echocardiogram shows EF of 20%, LV wall function hyperkinetic, LA is moderately dilated 34-39 mL/M2, small pleural effusion. Beckham addressed with patient living alone. She may need extra assistance from her brother and [id number]. Phone call to brother will be made this afternoon Dr. Mccord. Patient denies any chest pain or difficulty breathing. Blood sugars have been managed. Unsure patient will be able to ma intain a insulin pump upon discharge. Patient remains afebrile, pulse rate 73, respirations 18, blood pressure 113/59 pulse oxing 98% on room air. 03/20: Patient denies any chest pain or chest pressure. She has been seen by cardiology this morning and recommendations are to continue current cardiac medications and patient will require LifeVest at the time of discharge to prevent sudden cardiac due to severe cardiomyopathy. sales support manager is making arrangements for LifeVest. Patient has been afebrile, heart rate 86, blood pressure 119/79, pulse ox 94% on room air. Repeat blood work reveals BUN 25 creatinine 0.9. Blood sugars running between 92 and 193. Electrolytes within normal range. WBC 14.8, hemoglobin 11.2, platelet count 370. Plan is for discharge to rehab today once LifeVest is obtained and all arrangements are completed. Review Of Systems: Constitutional: No fever, no chills, no night sweats. No weight change. No weakness, fatigue or lethargy. No daytime sleepiness. EENT: No headache. No blurred vision or double vision, no loss of vision. No loss of Hearing, no ringing in the ears, no dizziness. No nasal drainage or congestion. No epistaxis. No sore throat. Lungs: No shortness of breath, cough, no sputum production. No wheezing. Cardiovascular: No chest pain, no lower extremity edema. No palpitations. No paroxysmal nocturnal dyspnea. No orthopnea. No lightheadedness or dizziness. No syncopal episodes. Abdominal: no abdominal discomfort. No nausea, vomiting. no diarrhea. No constipation. No bloody or tarry stools. no loss of appetite. Genitourinary: No dysuria, increased frequency, urgency. No urinary retention. Musculoskeletal: No myalgias. No muscle weakness, no gait dysfunction, no frequent falls. No back pain. No neck pain. Integumentary: No wounds, no lesions. No rash or pruritus. No unusual bru ising. No change in hair or nails. Neurologic: No aphasia. No facial droop. No change in mentation. No head injury. No headache. No paralysis. No paresthesia. Psychiatric: No depression. No anxiety. No mood swings. Endocrine: No abnormal blood sugars. No weight change. No excessive sweating or thirst. Physical examination General Appearance: Alert, cooperative, no distress, appears stated age. Neck HEENT: Supple, no lymphadenopathy, no thyroid enlargement, no carotid bruits. Lungs: Clear to auscultation without crackles or wheezes no rhonchi, no deformity. Chest Wall: Chest wall normal expansion with deep inspiration no tenderness and no deformity was found on exam, no costochondral pain or discomfort. Heart: Regular rate and rhythm, S1, S2 normal, no murmur, rub or gallop. Back: Symmetric, no curvature, ROM normal, no CVA tenderness. Abdomen: Soft, non-tender, no rebound or rigidity, no hepatosplenomegaly. Extremities: Extremities normal, atraumatic, no cyanosis or edema. Pulses: 2+ and symmetric. Skin: Skin color, texture, tugor normal, no rashes or lesions. Neurologic: Alert oriented x3 cranial nerves II through XII intact, no motor deficit, no abnormal balance or gait Assessment and plan 1.altered mental status suspected secondary to diabetic ketoacidosis. Insulin drip DC'd, blood sugars ranging 90-111, temperature 20 units twice a day, NovoLog 10 units before meals 3 times a day with a NovoLog sliding scale Cont inue to monitor blood sugars, 2. Non-STEMI suspect acute CT earlier this week, post PCI of proximal LAD. Brilinta 90 mg by mouth twice a day 3. Diabetic ketoacidosis related to noncompliance, as noted in #1. 4. Coronary artery disease: Mr. percent stenosis proximally post PCI, 50-60% stenosis of diagonal, 60% stenosis of OM 2, 30-40% stenosis RCA. Atorvastatin 80 mg by mouth daily, 5. Diabetes mellitus on insulin pump: Insulin pump is currently not working, patient will be started on Levemir 20 units twice a day, NovoLog 10 units before meals at bedtime, sliding scale, 6. Reactive asthma chronic, stable 7. Glaucoma., Stable 8. Osteoarthritis, Tylenol as needed 9. DVT prophylaxis. Heparin 5000 units every 8 hours 10. GI prophylaxis: Protonix 40 mg by mouth before meals breakfast CODE STATUS: Full code Patient will be admitted min. 2 night stay. Impression and plan of care have been directed as dictated by the signing physician. Lata Key nurse practitioner acting as scribe for signing physician. Objective - Vital Signs Vital signs: Vital Signs Temp 98.1 F 03/20/21 08:00 Pulse 84 03/20/21 11:20 Resp 18 03/20/21 11:20 BP 100/62 03/20/21 11:20 Pulse Ox 94 L 03/20/21 11:20 Intake & Output 03/19/21 03/20/21 03/20/21 18:59 06:59 18:59 Intake Total 480 240 120 Output Total 200 Balance 280 240 120 Weight 100 kg Intake: Intake, IV Titration 240 Amount Sodium Chloride 0.9% 1, 240 000 ml @ 20 mls/hr IV . Q24H [facility] Rx#:[id number] Oral 480 120 Output: Urine 200 Other: Voiding Method Bedside Commode Bedside Commode Bedside Commode Bedpan Bedpan Bedpan # Voids 1 1 - Labs CBC & Chem 7: 03/20/21 05:41 03/20/21 05:41 Labs: Abnormal Lab Results - Last 24 Hours (Table) 03/19/21 03/20/21 03/20/21 Range/Units 20:10 05:41 05:41 WBC 14.8 H (3.8-10.6) k/uL RBC 3.64 L (3.80-5.40) m/uL Hgb 11.2 L (11.4-16.0) gm/dL Hct 33.3 L (34.0-46.0) % Neutrophils # 12.0 H (1.3-7.7) k/uL BUN 25 H (7-17) mg/dL Glucose 109 H (74-99) mg/dL POC Glucose (mg/dL) 110 H (75-99) mg/dL 03/20/21 Range/Units 11:54 WBC (3.8-10.6) k/uL RBC (3.80-5.40) m/uL Hgb (11.4-16.0) gm/dL Hct (34.0-46.0) % Neutrophils # (1.3-7.7) k/uL BUN (7-17) mg/dL Glucose (74-99) mg/dL POC Glucose (mg/dL) 193 H (75-99) mg/dL Microbiology - Last 24 Hours (Table) 03/18/21 23:08 Urine Culture - Preliminary Urine,Voided Vilma albicans Gram Neg Bacilli
[2021-03-20] MEDS ORDERED: IBUPROFEN 400 MG TAB PO STA (17:05)
[2021-03-20 17:32] LABS: Glucose,Whole Blood 187 mg/dL (75-99)
[2021-03-20 19:43] LABS: Glucose,Whole Blood 301 mg/dL (75-99)
[2021-03-20] MEDS: SODIUM CHLORIDE 0.9% 1,000 ML IV SCH (20:07)
[2021-03-20] MEDS ORDERED: INSULIN DETEMIR (LEVEMIR) 100 UNIT/ML SYR SQ SCH (21:00)
[2021-03-21 06:17] LABS: Glucose,Whole Blood 180 mg/dL (75-99)
[2021-03-21] MEDS ORDERED: FUROSEMIDE 10 MG/ML 4 ML VIAL ONE (06:26)
[2021-03-21] MEDS ORDERED: FUROSEMIDE 10 MG/ML 4 ML VIAL IV STA (06:26)
[2021-03-21] MEDS ORDERED: IPRATROPIUM-ALBUTEROL 3 ML NEB INHALATION STA (06:26)
[2021-03-21] MEDS ORDERED: IPRATROPIUM-ALBUTEROL 3 ML NEB INHALATION PRN (06:26)
[2021-03-21] MEDS ORDERED: methylPREDNISolone SOD SUCCI 125 MG/2 ML VIAL IV SCH (06:30)
[2021-03-21] MEDS ORDERED: ONDANSETRON 4 MG/2 ML VIAL IVP PRN (06:31)
[2021-03-21 06:49] LABS: ABG Base Excess -4.1 mmol/L; ABG HCO3 22 mmol/L (21-25); ABG Oxygen Saturation 99.8 % (94-97); ABG PCO2 42 mmHg (35-45); ABG PH 7.32 (7.35-7.45); ABG PO2 194 mmHg (83-108); ABG TCO2 23 mmol/L (19-24); Allen Test Performed? Yes
--- NOTE | 2021-03-21 06:53 | P.EN ---
A team note Activated at 6:25 AM. Arrived on the scene shortly after. Patient was admitted with DKA and a non-ST elevation LA. Patient was found to be in respiratory distress by the RN. The patient reports she does not feel well and feel short of breath. Vital signs at time of evaluation were BP 138/92, P 88, SpO2 100% on 15 L non-rebreather mask, and T 97.6. She denied chest pain, nausea, vomiting, cough. The RN notes that she had spoken with line leader power generation equipment repairer Dr. Mccracken who had ordered Lasix 40 mg IV push and a dose of Solu-Medrol. Last echo during this hospitalization revealed an EF of less than 20%. General: Non-toxic, in mild to moderate respiratory distress, appears stated age, obese HEENT: NC/AT, anicteric sclerae, moist conjunctiva, no lid-lag, PERRLA Cardiovascular: S1/S2 wnl, no murmurs, rubs, or gallops Lungs: Poor air entry bilaterally with bilateral rales and wheezing noted, some accessory muscle use noted Abdominal: Soft, non-tender, non-distended, no guarding, rebound, or rigidity Skin: Warm, dry Extremities: No edema or contractures Psychiatric: Alert and oriented to person, place and time, appropriate affect Assessment/plan Shortness of breath, likely secondary to flash pulmonary edema in setting of severe systolic CHF -Lasix 40 mg IV push -Insert Geronimo catheter -Follow-up chest x-ray -Obtain ABG -BiPAP if needed -Cardiology service following -Primary team and line leader notified by JV
[2021-03-21] MEDS: INSULIN ASPART (NovoLOG) 100 UNIT/ML VIAL SQ SCH ×4 (06:57→21:10)
[2021-03-21] MEDS: PANTOPRAZOLE 40 MG TABLET PO SCH (06:57)
[2021-03-21] MEDS: IPRATROPIUM-ALBUTEROL 3 ML NEB INHALATION SCH ×4 (07:07→20:31)
--- NOTE | 2021-03-21 07:57 | XR ---
EXAMINATION TYPE: XR chest 1V portable DATE OF EXAM: 03/21/2021, 01/31/2018. CLINICAL HISTORY: respiratory distress. TECHNIQUE: Portable frontal view of the chest. COMPARISON: 03/18/2021 FINDINGS: The cardiomediastinal silhouette is unchanged. There is diffuse interstitial coarsening mi ldly increased versus 03/18/2021. No pleural effusion. No pneumothorax seen. Old compression deformity of the midthoracic spine. IMPRESSION: Increased interstitial lung markings may represent interstitial edema.
[2021-03-21] MEDS: HEPARIN SODIUM,PORCINE/PF 5,000 UNIT/0.5 ML SYRINGE SQ SCH ×2 (09:52→18:46)
[2021-03-21] MEDS: ASPIRIN 81 MG PO SCH (09:53)
[2021-03-21] MEDS: TICAGRELOR 90 MG TAB PO SCH ×2 (09:53→21:11)
[2021-03-21] MEDS: ATORVASTATIN 80 MG TAB PO SCH (09:53)
[2021-03-21] MEDS: SPIRONOLACTONE 25 MG TAB PO SCH (09:53)
[2021-03-21] MEDS: METOPROLOL SUCCINATE (ER) 25 MG TAB.ER.24H PO SCH (09:53)
[2021-03-21] MEDS: lisinopriL 5 MG TAB PO SCH (09:53)
[2021-03-21 09:57] LABS: Glucose,Whole Blood 196 mg/dL (75-99)
--- NOTE | 2021-03-21 10:47 | CT ---
EXAMINATION TYPE: CT brain wo con DATE OF EXAM: 03/21/2021 COMPARISON: CT brain 03/18/2021 HISTORY: Altered mental status CT DLP: 1158.4 mGycm Automated exposure control for dose reduction was used. Helical imaging through the brain FINDINGS: Cerebral vascular calcifications, cortical atrophy again noted. There is been evolution of a right te mporal occipital infarct, there is effacement of the sulci. No significant midline shift, or signific ant mass effect. No hemorrhage or hydrocephalus. Calvarium is intact. Paranasal sinuses and mastoid a ir cells are remarkable for some mild inflammatory change in the ethmoid air cells. Cortical atrophy somewhat more pronounced in the posterior fossa. IMPRESSION: CEREBRAL VASCULAR ACCIDENT A Red level critical message alert has been initiated for Sher Mccracken via the [employer] Results System on 03/21/2021 10:45 AM. This message alert has been sent to Sher Mccracken via the pref erences provided by the clinician for the receipt of Radiology Critical Findings. Message ID [id number].
--- NOTE | 2021-03-21 11:03 | P.PN ---
Subjective Progress Note Date: 03/21/21 HISTORY OF PRESENT ILLNESS: This is a 70-year-old female who previously did not follow-up with a fancy sewer regularly who was admitted to the hospital secondary to non-STEMI. Patient underwent cardiac catheterization yesterday with Dr. Goldstein with PCI to the LAD. Patient examined this morning at the bedside. Patient denies chest pain or pressure. She denies shortness of breath. Denies dizziness or lightheadedness. Echocardiogram completed revealed ejection fraction less than 20%, small pleural effusion, mid lateral, mid anteroseptal, apical lateral, apical inferior LV wall hypokinesis. Apical septum LV wall motion is normal. Blood pressure 118/62. Telemetry reveals sinus mechanism. 03/20/2021 Patient examined this morning at the bedside. Patient denies chest pain or pressure. She denies shortness of breath. Vital signs are stable. 03/21/2021 Patient examined this morning at the bedside. Patient went into respiratory distress this morning. She was given IV Lasix and placed on a bipap. She is lethargic at the time of examination. Lifevest was unable to be placed yesterday due to patients mental status. CXR reveals increased interstitial lung markings that may represent interstitial edema. PHYSICAL EXAM: VITAL SIGNS: Reviewed. GENERAL: Well-developed in no acute distress. NECK: Supple. No JVD or thyromegaly LUNGS: Respirations even and unlabored. Lungs diminished bilaterally. HEART: Regular rate and rhythm. S1 and S2 heard. EXTREMITIES: Normal range of motion. No clubbing or cyanosis. Peripheral pulses intact. No lower extremity edema. Right radial cath site with pulse present ASSESSMENT: Non-STEMI, status post PCI to LAD Ischemic cardiomyopathy, EF 20% Diabetes mellitus DKA Peripheral neuropathy Acute hypoxic respiratory failure requiring bipap Altered mental status PLAN: Continue current cardiac medications including aspirin 81 mg daily, atorvastatin 80 mg daily, lisinopril 5 mg daily, metoprolol succinate 25 mg daily, Aldactone 25mg daily, and Brilinta 90 mg twice a day Patient will require Lifevest at the time of discharge to prevent sudden cardiac due to severe cardiomyopathy Neurology consulted for further evaluation. CT brain ordered. Await results. Further recommendations pending patient course Nurse practitioner note has been reviewed by physician. Signing provider agrees with the documented findings, assessment, and plan of care. Objective - Vital Signs Vital signs: Vital Signs Temp 97.6 F 03/21/21 06:30 Pulse 86 03/21/21 09:59 Resp 26 H 03/21/21 09:59 BP 125/62 03/21/21 09:59 Pulse Ox 100 03/21/21 07:10 Intake & Output 03/20/21 03/21/21 03/21/21 18:59 06:59 18:59 Intake Total 600 20 Balance 600 20 Weight 100.5 kg Intake: IV 20 Invasive Line 1 10 Invasive Line 2 10 Oral 600 Other: Voiding Method Bedside Commode Indwelling Catheter Bedpan # Voids 1 1 - Labs CBC & Chem 7: 03/20/21 05:41 03/20/21 05:41 Labs: Abnormal Lab Results - Last 24 Hours (Table) 03/20/21 03/20/21 03/20/21 Range/Units 11:54 17:30 19:42 ABG pH (7.35-7.45) ABG pO2 (83-108) mmHg ABG O2 Saturation (94-97) % POC Glucose (mg/dL) 193 H 187 H 301 H (75-99) mg/dL 03/21/21 03/21/21 03/21/21 Range/Units 06:15 06:37 09:50 ABG pH 7.32 L (7.35-7.45) ABG pO2 194 H (83-108) mmHg ABG O2 Saturation 99.8 H (94-97) % POC Glucose (mg/dL) 180 H 196 H (75-99) mg/dL Microbiology - Last 24 Hours (Table) 03/18/21 23:08 Urine Culture - Final Urine,Voided Vilma albicans Escherichia coli
[2021-03-21 11:13] LABS: Basophils % (A) 0 %; Eosinophils % (A) 0 %; HCT 33.9 % (34.0-46.0); HGB 11.3 gm/dL (11.4-16.0); Lymphocytes # (A) 0.4 k/uL (1.0-4.8); Lymphocytes % (A) 4 %; MCH 30.9 pg (25.0-35.0); MCHC 33.4 g/dL (31.0-37.0); MCV 92.6 fL (80.0-100.0); Mean Platelet Volume 8.5; Monocytes # (A) 0.3 k/uL (0-1.0); Monocytes % (A) 2 %; Neutrophils # (A) 10.5 k/uL (1.3-7.7); Neutrophils % (A) 93 %; Platelet Count 364 k/uL (150-450); RBC 3.66 m/uL (3.80-5.40); WBC 11.3 k/uL (3.8-10.6)
[2021-03-21 11:23] LABS: Calcium 8.8 mg/dL (8.4-10.2); Potassium 3.9 mmol/L (3.5-5.1)
[2021-03-21 11:50] LABS: Glucose,Whole Blood 227 mg/dL (75-99)
--- NOTE | 2021-03-21 12:50 | P.CNNES ---
History of Present Illness Consult date: 03/21/21 Requesting physician: Sher Mccracken Reason for Consult: Altered mental status History of Present Illness: Patient is a 70-year-old female who was brought to the hospital on 03/18/2021 for altered mental status. Apparently 1 of the patient's friend called EMS because patient was confused. When EMS arrived, patient was sitting in the chair. Patient was confused, lethargic, and the family believes that she was having some type of diabetic issue. Patient's blood sugar was noted to be "high". She has mentioned that she was not taking her insulin for the last few days. And she could not give the reason why she was not taking insulin. Patient was alert and oriented 3. Her blood pressure was 143/79, pulse rate 98 respirations 16 saturation 95%. Patient underwent computed tomography scan of the head, which was read as normal. EKG shows normal sinus rhythm, left anterior fascicular block. Septal infarct, age undetermined. Possible lateral infarct, age undetermined. Chest x-ray showed mid thoracic spine vertebral body likely T9 appears to have loss of body height. No otherwise acute process. 2-D echo revealed EF severely impaired <20%. Mid lateral, mid anterior septal, apical lateral, apical inferior, left ventricular wall motion are all hypokinetic. Apical septum LV wall motion is normal. Left atrium is moderately dilated. Her glucose was noted to be 670 on arrival. WBC 12.8, hemoglobin 12.5. Sodium 128 potassium 5.0. BUN 37 creatinine 1.08. Troponin was elevated 3.93. UA shows signs of infection. Acetone was positive. Patient was diagnosed with DKA, acute UT. Patient underwent stent placement in the LAD. Patient apparently has been having decreasing neuro status since yesterday. At around 10 AM patient was noted to be not responsive and would only respond to sternal rub when she would groan. Her blood sugar was 196, and other vitals were stable. Ammonia was normal, CBC with WBC 11.3 hemoglobin 11.3 and platelets 364. Sodium 136 potassium 3.9, BUN 38 creatinine 1.36. Patient had a repeat computed tomography scan of the head, which revealed an evolving right temporal occipital infarct with effacement of sulci. No significant midline shift or significant mass effect. This prompted neurology consultation. Patient was not a candidate for TPA, as her last known well was uncertain, perhaps sometimes overnight. 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 Patient lives with her parents, was also but then got . At present patient has been living on her own in an apartment. Patient does not use any assistive device for walking at home. Patient has history of type 2 diabetes for last 10 years. She is a nonsmoker. She has breast reduction surgery. Also has LAP-BAND surgery. Patient has history of seizure related to hypoglycemia in the past. Patient at present is laying in the bed, having BiPAP treatment. Patient offers no complaints. Patient is currently on aspirin 81 mg, Brilinta, and Lipitor 80 mg. At home patient apparently was not on any antiplatelet medication it appears. Review of Systems ROS unobtainable: due to mental status Past Medical History Past Medical History: Asthma, Diabetes Mellitus, Eye Disorder, Osteoarthritis (OA) Additional Past Medical History / Comment(s): insulin pump, jose luis glaucoma History of Any Multi-Drug Resistant Organisms: None Reported Past Surgical History: Breast Surgery, Heart Catheterization With Stent, Joint R eplacement, Orthopedic Surgery, Tubal Ligation Additional Past Surgical History / Comment(s): jose luis breast reduction, rt arm surgery, rt ankle surgery, rt hip replacement. 03/18/2021 Cardiac cath @ [facility] with Stent x 1 to prox LAD Past Anesthesia/Blood Transfusion Reactions: Previous Problems w/ Anesthesia Additional Past Anesthesia/Blood Transfusion Reaction / Comment(s): slow to come out of anesthesia Date of Last Stent Placement:: 03/18/2021 Past Psychological History: No Psychological Hx Reported Smoking Status: Former smoker Past Alcohol Use History: None Reported Past Drug Use History: None Reported - Past Family History Mother Family Medical History: COPD, Hypertension Additional Family Medical History / Comment(s): "hardening of the lungs" Father Family Medical History: Diabetes Mellitus Additional Family Medical History / Comment(s): from "old age" Medications and Allergies Home Medications Medication Instructions Recorded Confirmed Type Albuterol Inhaler [Ventolin Hfa 1 - 2 puff INHALATION RT-Q6H PRN 03/18/21 03/18/21 History Inhaler] Brimonidine Tartrate [Alphagan P 1 drop BOTH EYES BID 03/18/21 03/18/21 History 0.2% Ophth Soln] Dorzolamide 2% [Trusopt 2%] 1 drop BOTH EYES BID 03/18/21 03/18/21 History INSULIN ASPART (NovoLOG) [NovoLOG See Protocol SQ DIRECTED 03/18/21 03/18/21 History (formulary)] Ticagrelor [Brilinta] 90 mg PO BID #60 tab 03/19/21 Rx Aspirin 81 mg PO DAILY chew 03/20/21 Rx Atorvastatin [Lipitor] 80 mg PO DAILY #30 tab 03/20/21 Rx INSULIN ASPART (NovoLOG) [NovoLOG 0 unit SQ ACHS vial 03/20/21 Rx (formulary)] Insulin Detemir (Levemir) [Levemir] 10 unit SQ HS syr 03/20/21 Rx Metoprolol Succinate (ER) [Toprol 12.5 mg PO DAILY #0 tab.er.24h 03/20/21 Rx XL] Nitroglycerin Sl Tabs [Nitrostat] 0.4 mg SUBLINGUAL Q5M PRN tab 03/20/21 Rx Spironolactone [Aldactone] 25 mg PO DAILY #90 tablet 03/20/21 Rx lisinopriL [Zestril] 5 mg PO DAILY #0 tab 03/20/21 Rx Allergies Allergy/AdvReac Type Severity Reaction Status Date / Time No Known Allergies Allergy Verified 03/18/21 14:36 Physical Examination - Vital Signs Vital Signs: Vital Signs Temp Pulse Pulse Resp BP Pulse Ox 03/21/21 12:01 97.6 F 85 13 132/68 03/21/21 11:19 73 03/21/21 11:09 73 03/21/21 09:59 86 26 H 125/62 03/21/21 09:45 86 26 H 03/21/21 07:10 97.6 F 66 28 H 129/61 100 03/21/21 06:59 99 28 H 03/21/21 06:46 99 03/21/21 06:30 97.6 F 88 28 H 138/92 100 03/21/21 06:20 106 H 30 H 173/91 98 03/21/21 06:15 97.4 F L 105 H 30 H 151/105 98 03/21/21 03:37 97.6 F 81 16 114/63 98 03/20/21 23:35 97.6 F 80 16 123/58 99 03/20/21 20:00 97.4 F L 70 18 117/64 98 03/20/21 15:50 97.8 F 74 18 110/70 98 03/20/21 14:00 74 18 Intake and Output 03/20/21 03/21/21 03/21/21 22:59 06:59 14:59 Intake Total 500 Output Total 325 Balance 500 -325 Intake: IV 20 Invasive Line 1 10 Invasive Line 2 10 Oral 480 Output: Urine 325 Other: Voiding Method Bedside Commode Indwelling Catheter Indwelling Catheter # Voids 1 1 Weight 100.5 kg On examination patient is an elderly female, who is laying in the bed, having BiPAP. Patient appears very tired, generalized weak, lack of energy, tachypneic. She is slightly lethargic. Patient did wake up, and cooperated partly with the examination. Speech and language functions could not be tested. Attention, concentration and fund of knowledge is limited. On cranial nerve examination pupils are round and reactive to light, visual villeda revealed complete left homonymous hemianopia. Face is symmetric, she did not protrude her tongue and palate cannot be tested. Hearing appears normal. Facial sensations normal. Shoulder shrug normal. On muscle strength testing patient has left pronator drift. The strength appears normal in the arms except left deltoid which is 5-. Patient able to wiggle her feet and left the legs off the bed about 10-20 with some resistance. I did not notice any obvious focality. There was no cooperation the lower extremity testing. Reflexes are significantly diminished and plantars downgoing. Sensory and cerebellar functions could not be tested, as patient became tired, and would not cooperate on repeated attempts. Gait not tested. On general examination no obvious bruit, S1 and S2 audible, abdomen soft and nontender. Patient has mild peripheral edema. Results - Laboratory Findings CBC and BMP: 03/21/21 10:56 03/21/21 10:56 Abnormal Lab Findings: Abnormal Labs 03/18/21 03/18/21 03/18/21 00:11 00:45 00:45 WBC 12.8 H RBC Hgb Hct Neutrophils # 11.0 H Lymphocytes # 0.9 L ABG pH ABG pO2 ABG O2 Saturation Sodium 128 L Potassium Chloride 93 L Carbon Dioxide 18 L BUN 37 H Creatinine 1.08 H Glucose 670 H* POC Glucose (mg/dL) >600 H Phosphorus Creatine Kinase 142 H Troponin I HDL Cholesterol Ur Specific [place] Urine Glucose (UA) Urine Ketones Urine Blood Ur Leukocyte Esterase Urine RBC Urine Bacteria Urine Mucus 03/18/21 03/18/21 03/18/21 00:45 01:41 04:18 WBC RBC Hgb Hct Neutrophils # Lymphocytes # ABG pH ABG pO2 ABG O2 Saturation Sodium Potassium Chloride Carbon Dioxide BUN Creatinine Glucose POC Glucose (mg/dL) 585 H 483 H Phosphorus Creatine Kinase Troponin I 3.930 H* HDL Cholesterol Ur Specific [place] Urine Glucose (UA) Urine Ketones Urine Blood Ur Leukocyte Esterase Urine RBC Urine Bacteria Urine Mucus 03/18/21 03/18/21 03/18/21 05:15 05:19 05:19 WBC RBC Hgb Hct Neutrophils # Lymphocytes # ABG pH ABG pO2 ABG O2 Saturation Sodium 133 L Potassium Chloride Carbon Dioxide 20 L BUN 33 H Creatinine Glucose 458 H POC Glucose (mg/dL) Phosphorus Creatine Kinase Troponin I 4.830 H* HDL Cholesterol Ur Specific [place] 1.037 H Urine Glucose (UA) 4+ H Urine Ketones 3+ H Urine Blood Moderate H Ur Leukocyte Esterase Moderate H Urine RBC 11 H Urine Bacteria Rare H Urine Mucus Rare H 03/18/21 03/18/21 03/18/21 05:19 05:23 06:28 WBC 13.1 H RBC Hgb Hct Neutrophils # 11.2 H Lymphocytes # ABG pH ABG pO2 ABG O2 Saturation Sodium Potassium Chloride Carbon Dioxide BUN Creatinine Glucose POC Glucose (mg/dL) 454 H 460 H Phosphorus Creatine Kinase Troponin I HDL Cholesterol Ur Specific [place] Urine Glucose (UA) Urine Ketones Urine Blood Ur Leukocyte Esterase Urine RBC Urine Bacteria Urine Mucus 03/18/21 03/18/21 03/18/21 07:17 09:01 09:49 WBC RBC Hgb Hct Neutrophils # Lymphocytes # ABG pH ABG pO2 ABG O2 Saturation Sodium 136 L Potassium Chloride Carbon Dioxide BUN 31 H Creatinine Glucose 227 H POC Glucose (mg/dL) 469 H 314 H Phosphorus 2.2 L Creatine Kinase Troponin I HDL Cholesterol Ur Specific [place] Urine Glucose (UA) Urine Ketones Urine Blood Ur Leukocyte Esterase Urine RBC Urine Bacteria Urine Mucus 03/18/21 03/18/21 03/18/21 09:49 10:02 11:04 WBC RBC Hgb Hct Neutrophils # Lymphocytes # ABG pH ABG pO2 ABG O2 Saturation Sodium Potassium Chloride Carbon Dioxide BUN Creatinine Glucose POC Glucose (mg/dL) 259 H 201 H Phosphorus Creatine Kinase Troponin I 5.550 H* HDL Cholesterol Ur Specific [place] Urine Glucose (UA) Urine Ketones Urine Blood Ur Leukocyte Esterase Urine RBC Urine Bacteria Urine Mucus 03/18/21 03/18/21 03/18/21 13:56 16:39 19:55 WBC RBC Hgb Hct Neutrophils # Lymphocytes # ABG pH ABG pO2 ABG O2 Saturation Sodium Potassium Chloride Carbon Dioxide BUN Creatinine Glucose POC Glucose (mg/dL) 151 H 193 H 225 H Phosphorus Creatine Kinase Troponin I HDL Cholesterol Ur Specific [place] Urine Glucose (UA) Urine Ketones Urine Blood Ur Leukocyte Esterase Urine RBC Urine Bacteria Urine Mucus 03/18/21 03/19/21 03/19/21 20:50 07:15 07:15 WBC RBC Hgb Hct Neutrophils # Lymphocytes # ABG pH ABG pO2 ABG O2 Saturation Sodium Potassium 2.8 L Chloride Carbon Dioxide BUN 25 H Creatinine Glucose POC Glucose (mg/dL) 215 H Phosphorus Creatine Kinase Troponin I HDL Cholesterol 36.0 L Ur Specific [place] Urine Glucose (UA) Urine Ketones Urine Blood Ur Leukocyte Esterase Urine RBC Urine Bacteria Urine Mucus 03/19/21 03/19/21 03/19/21 07:15 08:48 12:01 WBC 17.8 H RBC Hgb Hct Neutrophils # 14.7 H Lymphocytes # ABG pH ABG pO2 ABG O2 Saturation Sodium Potassium Chloride Carbon Dioxide BUN Creatinine Glucose POC Glucose (mg/dL) 111 H 119 H Phosphorus Creatine Kinase Troponin I HDL Cholesterol Ur Specific [place] Urine Glucose (UA) Urine Ketones Urine Blood Ur Leukocyte Esterase Urine RBC Urine Bacteria Urine Mucus 03/19/21 03/20/21 03/20/21 20:10 05:41 05:41 WBC 14.8 H RBC 3.64 L Hgb 11.2 L Hct 33.3 L Neutrophils # 12.0 H Lymphocytes # ABG pH ABG pO2 ABG O2 Saturation Sodium Potassium Chloride Carbon Dioxide BUN 25 H Creatinine Glucose 109 H POC Glucose (mg/dL) 110 H Phosphorus Creatine Kinase Troponin I HDL Cholesterol Ur Specific [place] Urine Glucose (UA) Urine Ketones Urine Blood Ur Leukocyte Esterase Urine RBC Urine Bacteria Urine Mucus 03/20/21 03/20/21 03/20/21 11:54 17:30 19:42 WBC RBC Hgb Hct Neutrophils # Lymphocytes # ABG pH ABG pO2 ABG O2 Saturation Sodium Potassium Chloride Carbon Dioxide BUN Creatinine Glucose POC Glucose (mg/dL) 193 H 187 H 301 H Phosphorus Creatine Kinase Troponin I HDL Cholesterol Ur Specific [place] Urine Glucose (UA) Urine Ketones Urine Blood Ur Leukocyte Esterase Urine RBC Urine Bacteria Urine Mucus 03/21/21 03/21/21 03/21/21 06:15 06:37 09:50 WBC RBC Hgb Hct Neutrophils # Lymphocytes # ABG pH 7.32 L ABG pO2 194 H ABG O2 Saturation 99.8 H Sodium Potassium Chloride Carbon Dioxide BUN Creatinine Glucose POC Glucose (mg/dL) 180 H 196 H Phosphorus Creatine Kinase Troponin I HDL Cholesterol Ur Specific [place] Urine Glucose (UA) Urine Ketones Urine Blood Ur Leukocyte Esterase Urine RBC Urine Bacteria Urine Mucus 03/21/21 03/21/21 03/21/21 10:56 10:56 11:44 WBC 11.3 H RBC 3.66 L Hgb 11.3 L Hct 33.9 L Neutrophils # 10.5 H Lymphocytes # 0.4 L ABG pH ABG pO2 ABG O2 Saturation Sodium 136 L Potassium Chloride Carbon Dioxide BUN 38 H Creatinine 1.36 H Glucose 208 H POC Glucose (mg/dL) 227 H Phosphorus Creatine Kinase Troponin I HDL Cholesterol Ur Specific [place] Urine Glucose (UA) Urine Ketones Urine Blood Ur Leukocyte Esterase Urine RBC Urine Bacteria Urine Mucus Assessment and Plan Assessment: * Sub-acute ischemic CVA involving right [employer] vascular territory, with complete left homonymous hemianopia and mild left arm paresis. Examination limited because of patient's mental status. * Toxic metabolic encephalopathy, multifactorial, results above and below * Status post DKA * Severe CHF with EF <20% * Acute UT, status post stent to the LAD * Diabetes * History of mild intellectual disability Plan: * Continue aspirin and Brilinaa 90 mg twice a day and high-dose statins. * Carotid Doppler to complete the stroke workup, although stroke is in the posterior circulation likely embolic from cardiac source. * Other medical management as per IM. * Optimize control of diabetes * Hemoglobin A1c * Fasting lipid panel showed cholesterol 138, LDL 73, HDL 36, triglycerides 145. * Discussed with patient's [id number] in detail.
--- NOTE | 2021-03-21 12:56 | P.PN ---
Subjective Progress Note Date: 03/21/21 Principal diagnosis: Altered mental status related to DKA, improved 03/19/2021, the patient is on the medical floor. She got transferred out of the intensive care unit. She had a non-STEMI and the patient underwent cardiac catheterization and PCI to LAD. She also had a component of the care that was treated. She was under better control and she is back on long-term insulin for blood sugar control. Echocardiogram showed an ejection fraction of less than 20%. She also has small pleural effusion. BP is under adequate control. No chest pain. She is currently on room air oxygen. No nausea. No vomiting. No diarrhea. No abdominal pain. Potassium level needs to be replaced at the level is at 2.8. BUN is at 25 with a creatinine of 0.7. Anion gap is at 6. Glucose is 116. The patient has been on a combination of aspirin July 20. She is on metoprolol. She is on high-dose statins with Lipitor 80 mg by mouth daily. She is on Levemir insulin 20 units along with a sinus Coverage. On 03/20/2021 patient seen in follow-up on selective care unit, she is resting in bed, she is on room air, she is breathing comfortably, room air pulse ox is 94-99%, hemodynamically she is stable, she is answering questions, however she may still be a bit confused. No fever or chills, lung sounds are clear, no cough or congestion. Her labs have been reviewed, her white count is improving, is down to 14.8, hemoglobin is 11.2, electrolytes are within normal limits, B1 is 25, creatinine 0.9. Patient continues on Rocephin for possibility of urinary tract infection, urine culture is showing gram-negative bacilli and Vilma albicans. On 03/21/2001 patient seen in follow-up on selective care unit, early this morning rapid response team was called to the bedside for a concern of increased shortness of breath. Patient reported not feeling well and having increased shortness of breath. Patient was placed on 100% nonrebreather mask, she was afebrile. Denied any chest pain, no nausea vomiting or cough. Chest x-ray was obtained showing increased interstitial lung markings that could represent interstitial edema, patient was given a dose of IV Lasix 40 mg IV push 1 early in the morning, she has produced around 300 mL of urine. Patient was placed on BiPAP support with pressures of 12 and 6 and FiO2 100%, blood gas was obtained showing pO2 of 194, pCO2 42, and pH of 7.39. FiO2 was cut back to 50%. Patient was also reportedly wheezy, she was given a couple doses of IV Solu-Medrol. During our evaluation patient is very lethargic, she is hardly arousable, she did finally open her eyes to repeated verbal stimulation, however she is not sustaining wakefulness, her blood gas does not explain her level of consciousness, her oxygenation has improved with diuretics, BiPAP support. However her mentation continued to be very altered, and depressed, we ordered stat CT of the brain without contrast which showed evolution of a right temporal occipital infarct, with effacement of the sulci. There was no significant midline shift, no significant mass effect. No hemorrhage, or hydrocephalus, dose of cortical atrophy somewhat more pronounced in the posterior fossa. We ordered stat neurology consultation and patient has been emergently transferred to the intensive care unit. Objective - Vital Signs Vital signs: Vital Signs Temp 97.6 F 03/21/21 12:01 Pulse 85 03/21/21 12:01 Resp 13 03/21/21 12:01 BP 132/68 03/21/21 12:01 Pulse Ox 100 03/21/21 07:10 Intake & Output 03/20/21 03/21/21 03/21/21 18:59 06:59 18:59 Intake Total 600 20 Output Total 325 Balance 600 20 -325 Weight 100.5 kg Intake: IV 20 Invasive Line 1 10 Invasive Line 2 10 Oral 600 Output: Urine 325 Other: Voiding Method Bedside Commode Indwelling Catheter Indwelling Catheter Bedpan # Voids 1 1 - Exam GENERAL EXAM: Very stuporous, 70-year-old white female, currently on BiPAP support with pressures of 12 and 6 and 50% FiO2 which has since been dropped down to 40% in view of her O2 saturations of 99-100% but appears to be comfortable in no apparent distress. HEAD: Normocephalic/atraumatic. EYES: Normal reaction of pupils, equal size. Conjunctiva pink, sclera white. NOSE: Clear with pink turbinates. THROAT: No erythema or exudates. NECK: No masses, no JVD, no thyroid enlargement, no adenopathy. CHEST: No chest wall deformity. Symmetrical expansion. LUNGS: Equal air entry with no crackles, wheeze, rhonchi or dullness. CVS: Regular rate and rhythm, normal S1 and S2, no gallops, no murmurs, no rubs ABDOMEN: Soft, nontender. No hepatosplenomegaly, normal bowel sounds, no guarding or rigidity. EXTREMITIES: No clubbing, no edema, no cyanosis, 2+ pulses and upper and lower extremities. MUSCULOSKELETAL: Muscle strength and tone normal. SPINE: No scoliosis or deformity SKIN: No rashes CENTRAL NERVOUS SYSTEM: Lethargic, stuporous. No focal deficits, tone is normal in all 4 extremities. - Labs CBC & Chem 7: 03/21/21 10:56 03/21/21 10:56 Labs: Abnormal Lab Results - Last 24 Hours (Table) 03/20/21 03/20/21 03/21/21 Range/Units 17:30 19:42 06:15 WBC (3.8-10.6) k/uL RBC (3.80-5.40) m/uL Hgb (11.4-16.0) gm/dL Hct (34.0-46.0) % Neutrophils # (1.3-7.7) k/uL Lymphocytes # (1.0-4.8) k/uL ABG pH (7.35-7.45) ABG pO2 (83-108) mmHg ABG O2 Saturation (94-97) % Sodium (137-145) mmol/L BUN (7-17) mg/dL Creatinine (0.52-1.04) mg/dL Glucose (74-99) mg/dL POC Glucose (mg/dL) 187 H 301 H 180 H (75-99) mg/dL 03/21/21 03/21/21 03/21/21 Range/Units 06:37 09:50 10:56 WBC 11.3 H (3.8-10.6) k/uL RBC 3.66 L (3.80-5.40) m/uL Hgb 11.3 L (11.4-16.0) gm/dL Hct 33.9 L (34.0-46.0) % Neutrophils # 10.5 H (1.3-7.7) k/uL Lymphocytes # 0.4 L (1.0-4.8) k/uL ABG pH 7.32 L (7.35-7.45) ABG pO2 194 H (83-108) mmHg ABG O2 Saturation 99.8 H (94-97) % Sodium (137-145) mmol/L BUN (7-17) mg/dL Creatinine (0.52-1.04) mg/dL Glucose (74-99) mg/dL POC Glucose (mg/dL) 196 H (75-99) mg/dL 03/21/21 03/21/21 Range/Units 10:56 11:44 WBC (3.8-10.6) k/uL RBC (3.80-5.40) m/uL Hgb (11.4-16.0) gm/dL Hct (34.0-46.0) % Neutrophils # (1.3-7.7) k/uL Lymphocytes # (1.0-4.8) k/uL ABG pH (7.35-7.45) ABG pO2 (83-108) mmHg ABG O2 Saturation (94-97) % Sodium 136 L (137-145) mmol/L BUN 38 H (7-17) mg/dL Creatinine 1.36 H (0.52-1.04) mg/dL Glucose 208 H (74-99) mg/dL POC Glucose (mg/dL) 227 H (75-99) mg/dL Microbiology - Last 24 Hours (Table) 03/18/21 23:08 Urine Culture - Final Urine,Voided Vilma albicans Escherichia coli Assessment and Plan Plan: #1. Altered mental status related to an acute temporal occipital infarct on #2. Altered mental status on presentation, with negative brain CT, initially suspected to be related to acute DKA #3. Acute diabetic ketoacidosis, related to medical noncompliance, and patient had not been taking her medications since 03/12/2021 #4. Non-ST elevated myocardial infarction, suspect subacute MN earlier this week, post PCI to LAD with stenting #5. Coronary artery disease including 100% stenosis of the proximal LAD, 50-60% stenosis of the diagonal branch, and 60% stenosis of the OM 2, and 30-40% stenosis of the RCA. Status post PCI and stenting of the LAD. Elevated LVEDP of 42 #6. Diabetes mellitus type 2 on insulin pump on an outpatient basis #7. Mild intermittent chronic bronchial asthma #8. Glaucoma #9. Osteoarthritis #10. Acute urinary tract infection related to E. coli Plan: Continue BiPAP support Blood gas has been reviewed and it did not explain her level of consciousness We sent the patient for a stat CT of the brain Patient has an acute temporal occipital infarct We'll transfer the patient to the intensive care unit Stat neurology consultation Continue antibiotics Continue diuretics Aspiration precautions We'll follow closely in the intensive care unit I performed a history & physical examination of the patient and discussed their management with my nurse practitioner, Kavita Asher. I reviewed the nurse practitioner's note and agree with the documented findings and plan of care. Lung sounds are positive for diminished breath sounds throughout the lung villeda. The findings and the impression was discussed with the patient. I attest to the documentation by the nurse practitioner. Time with Patient: Less than 30
[2021-03-21 13:10] LABS: Glucose,Whole Blood 195 mg/dL (75-99)
--- NOTE | 2021-03-21 15:26 | US ---
EXAMINATION TYPE: US carotid duplex BILAT DATE OF EXAM: 03/21/2021 COMPARISON: NONE CLINICAL HISTORY: cva. CVA EXAM MEASUREMENTS: RIGHT: Peak Systolic Velocity (PSV) cm/sec ----- Right CCA: 45.3 ----- Right ICA: 58.4 ----- Right ECA: 90.0 ICA/CCA ratio: 1.3 RIGHT: End Diastole cm/sec ----- Right CCA: 10.4 ----- Right ICA: 16.5 ----- Right ECA: 0.0 LEFT: Peak Systolic Velocity (PSV) cm/sec ----- Left CCA: 50.5 ----- Left ICA: 76.8 ----- Left ECA: 90.0 ICA/CCA ratio: 1.5 LEFT: End Diastole cm/sec ----- Left CCA: 14.7 ----- Left ICA: 21.9 ----- Left ECA: 0.0 VERTEBRALS (direction of flow): Right Vertebral: Antegrade Left Vertebral: Antegrade Rhythm: Normal No significant stenosis seen IMPRESSION: No sonographic evidence for hemodynamically significant stenosis in the bilateral carotid arteries. Criteria for Assigning % of Stenosis / Diameter reduction (Estimation based on the indirect measurements of the internal carotid artery velocities (ICA PSV). 1. Normal (no stenosis)=ICA PSV < 125 cm/s: ratio < 2.0: ICA EDV<40 cm/s. 2. Less than 50% stenosis=ICA PSV < 125 cm/s: ratio < 2.0: ICA EDV<40 cm/s. 3. 50 to 69% stenosis=ICA PSV of 125 to 230 cm/s: ration 2.0 ? 4.0: ICA EDV 40-100 cm/s. 4. Greater than 70% stenosis to near occlusion= ICA PSV > 230 cm/s: ratio > 4.0: ICA EDV > 100 cm/s. 5. Near occlusion= ICA PSV velocities may be low or undetectable: variable ratio and ICA EDV. 6. Total occlusion=unable to detect flow.
[2021-03-21 18:44] LABS: Glucose,Whole Blood 354 mg/dL (75-99)
[2021-03-21 20:40] LABS: Hemoglobin A1C 14.1 % (4.0-6.0)
[2021-03-21] MEDS ORDERED: INSULIN DETEMIR (LEVEMIR) 100 UNIT/ML SYR SQ SCH (21:00)
[2021-03-21 21:04] LABS: Glucose,Whole Blood 456 mg/dL (75-99)
[2021-03-21] MEDS: FUROSEMIDE 10 MG/ML 4 ML VIAL IV SCH (21:10)
[2021-03-21 23:54] LABS: Glucose,Whole Blood 390 mg/dL (75-99)
[2021-03-22] MEDS ORDERED: INSULIN ASPART (NovoLOG) 100 UNIT/ML VIAL SQ ONE (00:31)
[2021-03-22] MEDS: HEPARIN SODIUM,PORCINE/PF 5,000 UNIT/0.5 ML SYRINGE SQ SCH ×3 (00:42→18:26)
[2021-03-22 00:43] LABS: Glucose,Whole Blood 401 mg/dL (75-99)
[2021-03-22 03:53] LABS: Basophils % (A) 0 %; Eosinophils % (A) 0 %; HCT 34.8 % (34.0-46.0); HGB 10.9 gm/dL (11.4-16.0); Lymphocytes # (A) 0.6 k/uL (1.0-4.8); Lymphocytes % (A) 4 %; MCH 29.6 pg (25.0-35.0); MCHC 31.4 g/dL (31.0-37.0); MCV 94.3 fL (80.0-100.0); Mean Platelet Volume 8.9; Monocytes # (A) 0.5 k/uL (0-1.0); Monocytes % (A) 4 %; Neutrophils % (A) 91 %; Platelet Count 426 k/uL (150-450); RBC 3.69 m/uL (3.80-5.40); RDW 13.4 % (11.5-15.5); WBC 13.2 k/uL (3.8-10.6)
[2021-03-22 04:10] LABS: Calcium 9.1 mg/dL (8.4-10.2); Potassium 4.6 mmol/L (3.5-5.1)
[2021-03-22 06:58] LABS: Glucose,Whole Blood 276 mg/dL (75-99)
[2021-03-22] MEDS: INSULIN ASPART (NovoLOG) 100 UNIT/ML VIAL SQ SCH ×7 (07:04→20:37)
[2021-03-22] MEDS: SODIUM CHLORIDE 0.9% 1,000 ML IV SCH ×2 (07:05→20:27)
[2021-03-22] MEDS: IPRATROPIUM-ALBUTEROL 3 ML NEB INHALATION SCH ×4 (08:12→20:54)
--- NOTE | 2021-03-22 08:14 | XR ---
EXAMINATION TYPE: XR chest 1V portable DATE OF EXAM: 03/22/2021 COMPARISON: Chest x-ray 03/21/2021 HISTORY: Exertional dyspnea TECHNIQUE: Single frontal view of the chest is obtained. FINDINGS: Heart size is stable and likely enlarged, patient is rotated. There is no evident pneumoth orax or sizable effusion. Patchy bibasilar densities present, the interstitium is increased. Central vascularity appears prominently. Lung volumes are low. IMPRESSION: Correlate to exclude congestive heart failure, interstitial edema, pneumonia not exclude d.
[2021-03-22] MEDS: METOPROLOL SUCCINATE (ER) 25 MG TAB.ER.24H PO SCH (08:42)
[2021-03-22] MEDS: ATORVASTATIN 80 MG TAB PO SCH (08:42)
[2021-03-22] MEDS: ASPIRIN 81 MG PO SCH (08:42)
[2021-03-22] MEDS: lisinopriL 5 MG TAB PO SCH (08:42)
[2021-03-22] MEDS: SPIRONOLACTONE 25 MG TAB PO SCH (08:42)
[2021-03-22] MEDS: TICAGRELOR 90 MG TAB PO SCH ×2 (08:42→20:31)
[2021-03-22] MEDS: PANTOPRAZOLE 40 MG TABLET PO SCH (08:43)
[2021-03-22] MEDS: FUROSEMIDE 10 MG/ML 4 ML VIAL IV SCH (08:43)
--- NOTE | 2021-03-22 10:01 | ECHOF ---
Referral Reason:Rule out LV thrombus MEASUREMENTS -------- HEIGHT: 170.2 cm WEIGHT: 103.4 kg BP: FINDINGS -------- Limited Study There is severe global hypokinesis of LV . Overall left ventricular systolic function is severely i mpaired with, an EF < 20%. Lumason used CONCLUSIONS -------- 1. There is severe global hypokinesis of LV . 2. Overall left ventricular systolic function is severely impaired with, an EF < 20%. 3. Lumason used to rule out thrombus. No thrombus seen. JEWELRY SALES: Ingrid Ham RDCS
--- NOTE | 2021-03-22 11:15 | P.PN ---
Subjective Progress Note Date: 03/21/21 History of present illness This is a 70-year-old patient of Dr. Mccord being seen in ICU with past medical history significant for reactive query asthma, diabetes mellitus, glaucoma, CAD with previous stent, previous smoker. Patient was seen in the emergency room to significantly elevated blood sugars. Patient presented to the ED for evaluations regarding not acting appropriately and not taking her medications. Patient's failure to respond results and will check the patient's [id number]. This arrived to the house she comes patient is not taking any of her medications since March 12 and has not had any contact with her family. Patient was upset about being brought to the emergency room. In complaint of chest pain. Patient was found to have elevated troponin and abnormal EKG. She was taken to the [facility] Coord[facility] where she underwent a PCI with Dr. Goldstein and stenting t o the proximal LAD. Patient was also found to be in DKA. At this time patient is functioning resting comfortably without any acute distress. Patient is able to answer questions appropriately stating that her insulin pump was not working appropriately and she is not taking any medication since March 12. Patient is unsure why she stopped taking her medications just that she didn't take them. Patient denies any chest pain at this time. Patient is afebrile. Heart rate 75, respirations 20, blood pressure 140/73, oxygen saturation is 97% on room air. 03/19: Patient found resting in bed on 3 south. She is able to recount the episodes from yesterday and the day before. Echocardiogram shows EF of 20%, LV wall function hyperkinetic, LA is moderately dilated 34-39 mL/M2, small pleural effusion. [place] addressed with patient living alone. She may need extra assistance from her brother and [id number]. Phone call to brother will be made this afternoon Dr. Mccord. Patient denies any chest pain or difficulty breathing. Blood sugars have been managed. Unsure patient will be able to ma intain a insulin pump upon discharge. Patient remains afebrile, pulse rate 73, respirations 18, blood pressure 113/59 pulse oxing 98% on room air. 03/20: Patient denies any chest pain or chest pressure. She has been seen by cardiology this morning and recommendations are to continue current cardiac medications and patient will require LifeVest at the time of discharge to prevent sudden cardiac due to severe cardiomyopathy. business analyst manager is making arrangements for LifeVest. Patient has been afebrile, heart rate 86, blood pressure 119/79, pulse ox 94% on room air. Repeat blood work reveals BUN 25 creatinine 0.9. Blood sugars running between 92 and 193. Electrolytes within normal range. WBC 14.8, hemoglobin 11.2, platelet count 370. Plan is for discharge to rehab today once LifeVest is obtained and all arrangements are completed. 03/21: Patient was scheduled for discharge to rehab yesterday however arrangements were not completed for the LifeVest. When the LifeVest rep came in last evening, patient's mental status was off and the rep did not feel c omfortable leaving the LifeVest with the patient. Patient had an event last evening for which sound physician attended and Dr. Mccracken was contacted. Patient was found to be in respiratory distress and was placed on a nonrebreather followed by BiPAP. She was also provided Lasix 40 mg IV push, Geronimo catheter was ordered. Chest x-ray at that time revealed increased interstitial lung markings may represent interstitial edema. Patient was lethargic in the morning and mentation was not at her baseline. She underwent a CAT scan of the brain which revealed cerebral vascular accident. Patient was transferred into the intensive care unit. She was seen by neurology and patient was not a candidate for TPA. Neurology recommended continuing aspirin and polenta and high-dose statin. Carotid Doppler was ordered which revealed no hemodynamically significant stenosis. Review Of Systems: Patient is unable to provide information due to mental status Physical examination General Appearance: appears stated age. Neck HEENT: Supple, no lymphadenopathy, no thyroid enlargement, no carotid bruits. Lungs: Clear to auscultation without crackles or wheezes no rhonchi, no deformity. Chest Wall: Chest wall normal expansion with deep inspiration no tenderness and no deformity was found on exam, no costochondral pain or discomfort. Heart: Regular rate and rhythm, S1, S2 normal, no murmur, rub or gallop. Back: Symmetric, no curvature, ROM normal. Abdomen: Soft, non-tender, no rebound or rigidity, no hepatosplenomegaly. Extremities: Extremities normal, atraumatic, no cyanosis or edema. Pulses: 2+ and symmetric. Skin: Skin color, texture, tugor normal, no rashes or lesions. Neurologic: Lethargic Assessment and plan 1. Metabolic encephalopathy secondary to diabetic ketoacidosis. Insulin drip DC'd, blood sugars ranging 90-111, temperature 20 units twice a day, NovoLog 10 units before meals 3 times a day with a NovoLog sliding scale Continue to monitor blood sugars, 2. Non-STEMI suspect acute PA earlier this week, post PCI of proximal LAD. Brilinta 90 mg by mouth twice a day 3. Diabetic ketoacidosis related to noncompliance, as noted in #1. 4. Coronary artery disease: status post heart catheterization with LAD 100% stenosis, diagonal 50-60% stenosis, OM1 250-60% stenosis, RCA 30-40% stenosis status post proximal LAD stent. Atorvastatin 80 mg by mouth daily, 5. Diabetes mellitus on insulin pump: Insulin pump is currently not working, patient will be started on Levemir 20 units twice a day, NovoLog 10 units before meals at bedtime, sliding scale, 6. Severe cardiomyopathy with EF of less than 20%. Cardiology is ordered LifeVest. 7. Subacute ischemic CVA involving the right MEDICAL PHOTOGRAPHER vascular territory. 8. Mild intellectual disability.Reactive asthma chronic, stable 9. Glaucoma., Stable 10. Osteoarthritis, Tylenol as needed 11. DVT prophylaxis. Heparin 5000 units every 8 hours 12. GI prophylaxis: Protonix 40 mg by mouth before meals breakfast CODE STATUS: Full code Discharge plan:[facility] Impression and plan of care have been directed as dictated by the signing physician. Lata Key nurse practitioner acting as scribe for signing physician. Objective - Vital Signs Vital signs: Vital Signs Temp 97.6 F 03/21/21 06:30 Pulse 86 03/21/21 09:59 Resp 26 H 03/21/21 09:59 BP 125/62 03/21/21 09:59 Pulse Ox 100 03/21/21 07:10 Intake & Output 03/20/21 03/21/21 03/21/21 18:59 06:59 18:59 Intake Total 600 20 Balance 600 20 Weight 100.5 kg Intake: IV 20 Invasive Line 1 10 Invasive Line 2 10 Oral 600 Other: Voiding Method Bedside Commode Indwelling Catheter Bedpan # Voids 1 1 - Labs CBC & Chem 7: 03/22/21 02:46 03/22/21 02:46 Labs: Abnormal Lab Results - Last 24 Hours (Table) 07/12/21 07/12/21 07/12/21 Range/Units 11:54 17:30 19:42 ABG pH (7.35-7.45) ABG pO2 (83-108) mmHg ABG O2 Saturation (94-97) % POC Glucose (mg/dL) 193 H 187 H 301 H (75-99) mg/dL 03/21/21 03/21/21 03/21/21 Range/Units 06:15 06:37 09:50 ABG pH 7.32 L (7.35-7.45) ABG pO2 194 H (83-108) mmHg ABG O2 Saturation 99.8 H (94-97) % POC Glucose (mg/dL) 180 H 196 H (75-99) mg/dL Microbiology - Last 24 Hours (Table) 03/18/21 23:08 Urine Culture - Final Urine,Voided Vilma albicans Escherichia coli
--- NOTE | 2021-03-22 11:36 | P.PN ---
Subjective Progress Note Date: 03/22/21 History of present illness This is a 70-year-old patient of Dr. Mccord being seen in ICU with past medical history significant for reactive query asthma, diabetes mellitus, glaucoma, CAD with previous stent, previous smoker. Patient was seen in the emergency room to significantly elevated blood sugars. Patient presented to the ED for evaluations regarding not acting appropriately and not taking her medications. Patient's failure to respond results and will check the patient's [id number]. This arrived to the house she comes patient is not taking any of her medications since March 12 and has not had any contact with her family. Patient was upset about being brought to the emergency room. In complaint of chest pain. Patient was found to have elevated troponin and abnormal EKG. She was taken to the [facility] where she underwent a PCI with Dr. Goldstein and stenting t o the proximal LAD. Patient was also found to be in DKA. At this time patient is functioning resting comfortably without any acute distress. Patient is able to answer questions appropriately stating that her insulin pump was not working appropriately and she is not taking any medication since March 12. Patient is unsure why she stopped taking her medications just that she didn't take them. Patient denies any chest pain at this time. Patient is afebrile. Heart rate 75, respirations 20, blood pressure 140/73, oxygen saturation is 97% on room air. 03/19: Patient found resting in bed on 3 south. She is able to recount the episodes from yesterday and the day before. Echocardiogram shows EF of 20%, LV wall function hyperkinetic, LA is moderately dilated 34-39 mL/M2, small pleural effusion. [place] addressed with patient living alone. She may need extra assistance from her brother and [id number]. Phone call to brother will be made this afternoon Dr. Mccord. Patient denies any chest pain or difficulty breathing. Blood sugars have been managed. Unsure patient will be able to ma intain a insulin pump upon discharge. Patient remains afebrile, pulse rate 73, respirations 18, blood pressure 113/59 pulse oxing 98% on room air. 03/20: Patient denies any chest pain or chest pressure. She has been seen by cardiology this morning and recommendations are to continue current cardiac medications and patient will require LifeVest at the time of discharge to prevent sudden cardiac due to severe cardiomyopathy. human resources talent manager is making arrangements for LifeVest. Patient has been afebrile, heart rate 86, blood pressure 119/79, pulse ox 94% on room air. Repeat blood work reveals BUN 25 creatinine 0.9. Blood sugars running between 92 and 193. Electrolytes within normal range. WBC 14.8, hemoglobin 11.2, platelet count 370. Plan is for discharge to rehab today once LifeVest is obtained and all arrangements are completed. 03/21: Patient was scheduled for discharge to rehab yesterday however arrangements were not completed for the LifeVest. When the LifeVest rep came in last evening, patient's mental status was off and the rep did not feel c omfortable leaving the LifeVest with the patient. Patient had an event last evening for which sound physician attended and Dr. Mccracken was contacted. Patient was found to be in respiratory distress and was placed on a nonrebreather followed by BiPAP. She was also provided Lasix 40 mg IV push, Geronimo catheter was ordered. Chest x-ray at that time revealed increased interstitial lung markings may represent interstitial edema. Patient was lethargic in the morning and mentation was not at her baseline. She underwent a CAT scan of the brain which revealed cerebral vascular accident. Patient was transferred into the intensive care unit. She was seen by neurology and patient was not a candidate for TPA. Neurology recommended continuing aspirin and polenta and high-dose statin. Carotid Doppler was ordered which revealed no hemodynamically significant stenosis. 03/22: Patient is seen today in the intensive care unit. Patient's mental status is back to baseline, she is awake alert and oriented 3. Chest x-ray this morning reveals correlate for congestive heart failure, interstitial edema, pneumonia not excluded. Limited echocardiogram revealed severe global hypokinesia with EF less than 20%. No thrombus seen. The patient has been seen by speech therapy this morning and has scheduled patient for modified barium swallow. She is currently on 3 L nasal cannula with pulse ox of 97 and 99%. Heart rate in the 80s and 90s, blood pressure 113/58. Blood sugars were quite high overnight and the following adjustments have been made to her insulin Levemir changed twice daily at 15 units and NovoLog 5 units before meals and at bedtime added along with continuing NovoLog scale. Hemoglobin A1c is 14.1. Repeat renal function is BUN 51 and creatinine 1.61. WBC 13.2, hemoglobin 10.9, platelet count 426. Physical therapy and occupational therapy continue to follow the patient. Patient is to have LifeVest fitted today. Discharge plan is to [facility]. Review Of Systems: Constitutional: No fever, no chills, no night sweats. No weight change. Generalized weakness, reported fatigue no lethargy. No daytime sleepiness. EENT: No headache. No blurred vision or double vision, no loss of vision. No loss of Hearing, no ringing in the ears, no dizziness. No nasal drainage or congestion. No epistaxis. No sore throat. Lungs: No shortness of breath, cough, no sputum production. No wheezing. Cardiovascular: No chest pain, no lower extremity edema. No palpitations. No paroxysmal nocturnal dyspnea. No orthopnea. No lightheadedness or dizziness. No syncopal episodes. Abdominal: No abdominal pain. No nausea, vomiting. No diarrhea. No consti pation. No bloody or tarry stools.. No loss of appetite. Genitourinary: No dysuria, increased frequency, urgency. No urinary retention. Musculoskeletal: No myalgias. No muscle weakness, no gait dysfunction, no frequent falls. No back pain. No neck pain. Integumentary: No wounds, no lesions. No rash or pruritus. No unusual bruising. No change in hair or nails. Neurologic: No aphasia. No facial droop. Reported change in mentation, improved. No head injury. No headache. No paralysis, improved. No paresthesia. Psychiatric: No depression. No anxiety. No mood swings. Endocrine: No abnormal blood sugars. No weight change. No excessive sweating or thirst. No cold intolerance. Physical examination General Appearance: appears stated age. Neck HEENT: Supple, no lymphadenopathy, no thyroid enlargement, no carotid bruits. Lungs: Clear to auscultation without crackles or wheezes no rhonchi, no deformity. Chest Wall: Chest wall normal expansion with deep inspiration no tenderness and no deformity was found on exam, no costochondral pain or discomfort. Heart: Regular rate and rhythm, S1, S2 normal, no murmur, rub or gallop. Back: Symmetric, no curvature, ROM normal. Abdomen: Soft, non-tender, no rebound or rigidity, no hepatosplenomegaly. Geronimo catheter in place. Extremities: Extremities normal, atraumatic, no cyanosis or edema. Pulses: 2+ and symmetric. Skin: Skin color, texture, tugor normal, no rashes or lesions. Neurologic: Awake alert and oriented 3 Assessment and plan 1. Metabolic encephalopathy secondary to diabetic ketoacidosis. 2. Non-STEMI suspect acute [place] earlier this week, post PCI of proximal LAD. Br ilinta 90 mg by mouth twice a day, aspirin 81 mg daily, Lipitor 80 mg daily, Toprol-XL 25 mg daily, lisinopril 5 mg daily 3. Diabetic ketoacidosis related to noncompliance, as noted in #1. Continue Levemir increased to 15 units twice daily, NovoLog 5 units before meals and bedtime and NovoLog scale 4. Coronary artery disease: status post heart catheterization with LAD 100% stenosis, diagonal 50-60% stenosis, OM1 250-60% stenosis, RCA 30-40% stenosis status post proximal LAD stent. Atorvastatin 80 mg by mouth daily, 5. Diabetes mellitus on insulin pump: Insulin pump is currently not working. Continue as above. 6. Severe cardiomyopathy with EF of less than 20%. Cardiology is ordered LifeVest. patient is to be fitted for LifeVest today. 7. Subacute ischemic CVA involving the right ENGRAVING OPERATOR vascular territory. speech therapy has evaluated and scheduled patient for modified barium swallow. 8. Mild intellectual disability. 9. Reactive asthma chronic, stable 10 . Glaucoma., Stable 11. Osteoarthritis, Tylenol as needed 12. DVT prophylaxis. Heparin 5000 units every 8 hours 13. GI prophylaxis: Protonix 40 mg by mouth before meals breakfast CODE STATUS: Full code Discharge plan: [facility] Impression and plan of care have been directed as dictated by the signing shankar ramires. Lata Key nurse practitioner acting as scribe for signing physician. Objective - Vital Signs Vital signs: Vital Signs Temp 98.2 F 03/22/21 08:00 Pulse 94 03/22/21 09:00 Resp 17 03/22/21 09:00 BP 113/58 03/22/21 09:00 Pulse Ox 97 03/22/21 09:00 Intake & Output 03/21/21 03/22/21 03/22/21 18:59 06:59 18:59 Intake Total 220 60 Output Total 325 895 140 Balance -325 -675 -80 Weight 100.5 kg 103.8 kg Intake: IV 220 60 0.9 NaCl- 220 60 Output: Urine 325 895 140 Other: Voiding Method Indwelling Catheter Indwelling Catheter Indwelling Catheter - Labs CBC & Chem 7: 03/22/21 02:46 03/22/21 02:46 Labs: Abnormal Lab Results - Last 24 Hours (Table) 03/21/21 03/21/21 03/21/21 Range/Units 10:56 10:56 10:56 WBC 11.3 H (3.8-10.6) k/uL RBC 3.66 L (3.80-5.40) m/uL Hgb 11.3 L (11.4-16.0) gm/dL Hct 33.9 L (34.0-46.0) % Neutrophils # 10.5 H (1.3-7.7) k/uL Lymphocytes # 0.4 L (1.0-4.8) k/uL Sodium 136 L (137-145) mmol/L BUN 38 H (7-17) mg/dL Creatinine 1.36 H (0.52-1.04) mg/dL Glucose 208 H (74-99) mg/dL POC Glucose (mg/dL) (75-99) mg/dL Hemoglobin A1c 14.1 H (4.0-6.0) % 03/21/21 03/21/21 03/21/21 Range/Units 11:44 13:08 18:43 WBC (3.8-10.6) k/uL RBC (3.80-5.40) m/uL Hgb (11.4-16.0) gm/dL Hct (34.0-46.0) % Neutrophils # (1.3-7.7) k/uL Lymphocytes # (1.0-4.8) k/uL Sodium (137-145) mmol/L BUN (7-17) mg/dL Creatinine (0.52-1.04) mg/dL Glucose (74-99) mg/dL POC Glucose (mg/dL) 227 H 195 H 354 H (75-99) mg/dL Hemoglobin A1c (4.0-6.0) % 03/21/21 03/21/21 03/22/21 Range/Units 21:03 23:53 00:41 WBC (3.8-10.6) k/uL RBC (3.80-5.40) m/uL Hgb (11.4-16.0) gm/dL Hct (34.0-46.0) % Neutrophils # (1.3-7.7) k/uL Lymphocytes # (1.0-4.8) k/uL Sodium (137-145) mmol/L BUN (7-17) mg/dL Creatinine (0.52-1.04) mg/dL Glucose (74-99) mg/dL POC Glucose (mg/dL) 456 H 390 H 401 H (75-99) mg/dL Hemoglobin A1c (4.0-6.0) % 03/22/21 03/22/21 03/22/21 Range/Units 02:46 02:46 06:57 WBC 13.2 H (3.8-10.6) k/uL RBC 3.69 L (3.80-5.40) m/uL Hgb 10.9 L (11.4-16.0) gm/dL Hct (34.0-46.0) % Neutrophils # 12.0 H (1.3-7.7) k/uL Lymphocytes # 0.6 L (1.0-4.8) k/uL Sodium 135 L (137-145) mmol/L BUN 51 H (7-17) mg/dL Creatinine 1.61 H (0.52-1.04) mg/dL Glucose 325 H (74-99) mg/dL POC Glucose (mg/dL) 276 H (75-99) mg/dL Hemoglobin A1c (4.0-6.0) % Microbiology - Last 24 Hours (Table) 03/18/21 23:08 Urine Culture - Final Urine,Voided Vilma albicans Escherichia coli
--- NOTE | 2021-03-22 11:56 | P.PN ---
Subjective This is a 70-year-old female with history of diabetes mellitus type 2, osteoarthritis, diabetic neuropathy, previous tobacco abuse, macular degenerat ion. 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 She was admitted to the hospital secondary to non-STEMI and DKA. 03/18/2021 Patient underwent cardiac catheterization with Dr. Goldstein which revealed LAD 100% stenosis, diagonal 50-60% stenosis, OM1 250-60% stenosis, RCA 30-40%, Extremely elevated left-sided filling pressures likely related to ischemic cardiomyopathy. Status post PCI to the LAD. Echocardiogram completed revealed ejection fraction less than 20%, small pleural effusion, mid lateral, mid anteroseptal, apical lateral, apical inferior LV wall hypokinesis. Apical septum LV wall motion is normal. 03/21/2021: Patient went into respiratory distress in the morning. She was given IV Lasix and placed on a bipap. She is lethargic at the time of examination. Lifevest was unable to be placed yesterday due to patients mental status. CXR reveals increased interstitial lung markings that may represent interstitial edema. STAT CT brain was ordered- revealed cerebral vascular infarct acute temporal occipital infarct. Neurology consulted. Patient underwent carotid doppler- no evidence of significant stenosis. 03/22/2021: Patient seen and examined at bedside, currently getting a breathing treatment. Her breathing has improved. She is alert and oriented x 3. Chest Xray this morning, revealed heart size enlarged, patient is rotated, patchy bibasilar densities, the interstitium is increased. Patient is currently maintained on aspirin 1 mg daily, atorvastatin 80 mg daily, Lasix IV 40 mg twice a day, metoprolol succinate 25 mg daily, spironolactone 25 mg daily, Brilinta 90mg BID. Laboratory data review WBC 13.2 hemoglobin 10.9, platelets 426, sodium 135, potassium 4.6, BUN 51, serum creatinine 1.6. Patient is maintaining sinus mechanism heart rate 60-80s. PHYSICAL EXAM: VITAL SIGNS: Blood pressure 1 3958, heart rate 94, afebrile, maintaining saturations 97% on 3 L nasal cannula GENERAL: In no acute distress. NECK: Supple. No JVD or thyromegaly LUNGS: Respirations even and unlabored. Lungs diminished bilaterally. HEART: Regular rate and rhythm. S1 and S2 heard. Systolic murmur noted EXTREMITIES: Normal range of motion. No clubbing or cyanosis. Peripheral pulses intact. No lower extremity edema. Right radial cath site with pulse present NEURO: Alert and oriented x 3. ASSESSMENT: Non-STEMI, status post PCI to LAD on 03/18/21 Ischemic cardiomyopathy, EF 20% Acute systolic heart failure with reduced ejection fraction Subacute ischemic CVA on 03/21/21 Diabetes mellitus type 2 Hemoglobin A1C 14.1 Diabetic Ketoacidosis Peripheral neuropathy Acute hypoxic respiratory failure requiring bipap Metabolic encephalopathy Acute Kidney Injury PLAN: Will obtain limited echocardiogram to rule out LV thrombus - EF <20%, no LV thrombus seen Continue IV Lasix 40mg BID Continue to monitor renal function and electrolytes Continue current cardiac medications including aspirin 81 mg daily, atorvastatin 80 mg daily, lisinopril 5 mg daily, metoprolol succinate 25 mg daily, Aldactone 25mg daily, and Brilinta 90 mg twice a day Patient will require Lifevest at the time of discharge to prevent sudden cardiac due to severe cardiomyopathy Neurology following Pulmonary following Further recommendations pending patient course Nurse practitioner note has been reviewed by physician. Signing provider agrees with the documented findings, assessment, and plan of care. Objective - Vital Signs Vital signs: Vital Signs Temp 98.2 F 03/22/21 08:00 Pulse 89 03/22/21 11:00 Resp 11 L 03/22/21 11:00 BP 109/58 03/22/21 11:00 Pulse Ox 99 03/22/21 11:00 Intake & Output 03/21/21 03/22/21 03/22/21 18:59 06:59 18:59 Intake Total 220 100 Output Total 325 895 230 Balance -325 -675 -130 Weight 100.5 kg 103.8 kg Intake: IV 220 100 0.9 NaCl- 220 100 Output: Urine 325 895 230 Other: Voiding Method Indwelling Catheter Indwelling Catheter Indwelling Catheter - Labs CBC & Chem 7: 03/22/21 02:46 03/22/21 02:46 Labs: Abnormal Lab Results - Last 24 Hours (Table) 03/21/21 03/21/21 03/21/21 Range/Units 10:56 11:44 13:08 WBC (3.8-10.6) k/uL RBC (3.80-5.40) m/uL Hgb (11.4-16.0) gm/dL Neutrophils # (1.3-7.7) k/uL Lymphocytes # (1.0-4.8) k/uL Sodium (137-145) mmol/L BUN (7-17) mg/dL Creatinine (0.52-1.04) mg/dL Glucose (74-99) mg/dL POC Glucose (mg/dL) 227 H 195 H (75-99) mg/dL Hemoglobin A1c 14.1 H (4.0-6.0) % 03/21/21 03/21/21 03/21/21 Range/Units 18:43 21:03 23:53 WBC (3.8-10.6) k/uL RBC (3.80-5.40) m/uL Hgb (11.4-16.0) gm/dL Neutrophils # (1.3-7.7) k/uL Lymphocytes # (1.0-4.8) k/uL Sodium (137-145) mmol/L BUN (7-17) mg/dL Creatinine (0.52-1.04) mg/dL Glucose (74-99) mg/dL POC Glucose (mg/dL) 354 H 456 H 390 H (75-99) mg/dL Hemoglobin A1c (4.0-6.0) % 03/22/21 03/22/21 03/22/21 Range/Units 00:41 02:46 02:46 WBC 13.2 H (3.8-10.6) k/uL RBC 3.69 L (3.80-5.40) m/uL Hgb 10.9 L (11.4-16.0) gm/dL Neutrophils # 12.0 H (1.3-7.7) k/uL Lymphocytes # 0.6 L (1.0-4.8) k/uL Sodium 135 L (137-145) mmol/L BUN 51 H (7-17) mg/dL Creatinine 1.61 H (0.52-1.04) mg/dL Glucose 325 H (74-99) mg/dL POC Glucose (mg/dL) 401 H (75-99) mg/dL Hemoglobin A1c (4.0-6.0) % 03/22/21 Range/Units 06:57 WBC (3.8-10.6) k/uL RBC (3.80-5.40) m/uL Hgb (11.4-16.0) gm/dL Neutrophils # (1.3-7.7) k/uL Lymphocytes # (1.0-4.8) k/uL Sodium (137-145) mmol/L BUN (7-17) mg/dL Creatinine (0.52-1.04) mg/dL Glucose (74-99) mg/dL POC Glucose (mg/dL) 276 H (75-99) mg/dL Hemoglobin A1c (4.0-6.0) % Microbiology - Last 24 Hours (Table) 03/18/21 23:08 Urine Culture - Final Urine,Voided Vilma albicans Escherichia coli
[2021-03-22 12:38] LABS: Glucose,Whole Blood 270 mg/dL (75-99)
[2021-03-22] MEDS: INSULIN DETEMIR (LEVEMIR) 100 UNIT/ML SYR SQ SCH ×2 (12:38→20:30)
--- NOTE | 2021-03-22 13:17 | P.PN ---
Subjective Progress Note Date: 03/22/21 Patient was seen for a follow-up. Patient is much better. Her mentation has much improved. Per nursing report, patient perked up as soon as she came to ER. She is now alert and oriented 3. Objective - Vital Signs Vital signs: Vital Signs Temp 98.2 F 03/22/21 08:00 Pulse 89 03/22/21 11:00 Resp 11 L 03/22/21 11:00 BP 109/58 03/22/21 11:00 Pulse Ox 99 03/22/21 11:00 Intake & Output 03/21/21 03/22/21 03/22/21 18:59 06:59 18:59 Intake Total 220 120 Output Total 325 895 305 Balance -325 -675 -185 Weight 100.5 kg 103.8 kg Intake: IV 220 120 0.9 NaCl- 220 120 Output: Urine 325 895 305 Other: Voiding Method Indwelling Catheter Indwelling Catheter Indwelling Catheter - Exam On examination patient is an elderly female, in no distress. She is very pleasant. Speech and language functions are normal. On cranial ex amination patient has complete left homonymous hemianopia, with severe neglect on the left. She has mild left facial asymmetry. Other cranial nerves are normal. On muscle strength testing there is no pronator drift and the strength is normal in arms and legs. No ataxia for [id number] testing. Sensory to touch is equal with no neglect. Tone and bulk of muscles normal - Labs CBC & Chem 7: 03/22/21 02:46 03/22/21 02:46 Labs: Abnormal Lab Results - Last 24 Hours (Table) 03/21/21 03/21/21 03/21/21 Range/Units 10:56 13:08 18:43 WBC (3.8-10.6) k/uL RBC (3.80-5.40) m/uL Hgb (11.4-16.0) gm/dL Neutrophils # (1.3-7.7) k/uL Lymphocytes # (1.0-4.8) k/uL Sodium (137-145) mmol/L BUN (7-17) mg/dL Creatinine (0.52-1.04) mg/dL Glucose (74-99) mg/dL POC Glucose (mg/dL) 195 H 354 H (75-99) mg/dL Hemoglobin A1c 14.1 H (4.0-6.0) % 03/21/21 03/21/21 03/22/21 Range/Units 21:03 23:53 00:41 WBC (3.8-10.6) k/uL RBC (3.80-5.40) m/uL Hgb (11.4-16.0) gm/dL Neutrophils # (1.3-7.7) k/uL Lymphocytes # (1.0-4.8) k/uL Sodium (137-145) mmol/L BUN (7-17) mg/dL Creatinine (0.52-1.04) mg/dL Glucose (74-99) mg/dL POC Glucose (mg/dL) 456 H 390 H 401 H (75-99) mg/dL Hemoglobin A1c (4.0-6.0) % 03/22/21 03/22/21 03/22/21 Range/Units 02:46 02:46 06:57 WBC 13.2 H (3.8-10.6) k/uL RBC 3.69 L (3.80-5.40) m/uL Hgb 10.9 L (11.4-16.0) gm/dL Neutrophils # 12.0 H (1.3-7.7) k/uL Lymphocytes # 0.6 L (1.0-4.8) k/uL Sodium 135 L (137-145) mmol/L BUN 51 H (7-17) mg/dL Creatinine 1.61 H (0.52-1.04) mg/dL Glucose 325 H (74-99) mg/dL POC Glucose (mg/dL) 276 H (75-99) mg/dL Hemoglobin A1c (4.0-6.0) % 03/22/21 Range/Units 12:36 WBC (3.8-10.6) k/uL RBC (3.80-5.40) m/uL Hgb (11.4-16.0) gm/dL Neutrophils # (1.3-7.7) k/uL Lymphocytes # (1.0-4.8) k/uL Sodium (137-145) mmol/L BUN (7-17) mg/dL Creatinine (0.52-1.04) mg/dL Glucose (74-99) mg/dL POC Glucose (mg/dL) 270 H (75-99) mg/dL Hemoglobin A1c (4.0-6.0) % Microbiology - Last 24 Hours (Table) 03/18/21 23:08 Urine Culture - Final Urine,Voided Vilma albicans Escherichia coli Assessment and Plan Assessment: * Sub-acute ischemic CVA involving right [place] vascular territory, with complete left homonymous hemianopia. * Toxic metabolic encephalopathy, multifactorial, remarkably improved as of today. * Status post DKA * Severe CHF with EF <20% * Acute NH, status post stent to the LAD * Diabetes * History of mild intellectual disability Plan: * Continue aspirin and Brilinta 90 mg twice a day and high-dose statins. * Carotid Doppler revealed no significant stenosis. Antegrade flow in both vertebral arteries. * 2-D echo revealed severe global hypokinesis of left ventricle. Overall left ventricular systolic function is severely impaired with an EF <20%. Lumason used revealed no thrombus. * Other medical management as per IM. * Optimize control of diabetes * Hemoglobin A1c 14.1 consistent with poorly controlled diabetes. Optimize control of diabetes to target A1c <7.0. * Fasting lipid panel showed cholesterol 138, LDL 73, HDL 36, triglycerides 145. Continue Lipitor 80 mg * Neurologically clear.
--- NOTE | 2021-03-22 13:33 | P.PN ---
Subjective Progress Note Date: 03/22/21 Principal diagnosis: Acute temporal occipital infarct 03/19/2021, the patient is on the medical floor. She got transferred out of the intensive care unit. She had a non-STEMI and the patient underwent cardiac catheterization and PCI to LAD. She also had a component of the care that was treated. She was under better control and she is back on long-term insulin for blood sugar control. Echocardiogram showed an ejection fraction of less than 20%. She also has small pleural effusion. BP is under adequate control. No chest pain. She is currently on room air oxygen. No nausea. No vomiting. No diarrhea. No abdominal pain. Potassium level needs to be replaced at the level is at 2.8. BUN is at 25 with a creatinine of 0.7. Anion gap is at 6. Glucose is 116. The patient has been on a combination of aspirin July 20. She is on metoprolol. She is on high-dose statins with Lipitor 80 mg by mouth daily. She is on Levemir insulin 20 units along with a sinus Coverage. On 03/20/2021 patient seen in follow-up on selective care unit, she is resting in bed, she is on room air, she is breathing comfortably, room air pulse ox is 94-99%, hemodynamically she is stable, she is answering questions, however she may still be a bit confused. No fever or chills, lung sounds are clear, no cough or congestion. Her labs have been reviewed, her white count is improving, is down to 14.8, hemoglobin is 11.2, electrolytes are within normal limits, B1 is 25, creatinine 0.9. Patient continues on Rocephin for possibility of urinary tract infection, urine culture is showing gram-negative bacilli and Vilma albicans. On 03/21/2001 patient seen in follow-up on selective care unit, early this morning rapid response team was called to the bedside for a concern of increased shortness of breath. Patient reported not feeling well and having increased shortness of breath. Patient was placed on 100% nonrebreather mask, she was afebrile. Denied any chest pain, no nausea vomiting or cough. Chest x-ray was obtained showing increased interstitial lung markings that could represent interstitial edema, patient was given a dose of IV Lasix 40 mg IV push 1 early in the morning, she has produced around 300 mL of urine. Patient was placed on BiPAP support with pressures of 12 and 6 and FiO2 100%, blood gas was obtained showing pO2 of 194, pCO2 42, and pH of 7.39. FiO2 was cut back to 50%. Patient was also reportedly wheezy, she was given a couple doses of IV Solu-Medrol. During our evaluation patient is very lethargic, she is hardly arousable, she did finally open her eyes to repeated verbal stimulation, however she is not sustaining wakefulness, her blood gas does not explain her level of consciousness, her oxygenation has improved with diuretics, BiPAP support. However her mentation continued to be very altered, and depressed, we ordered stat CT of the brain without contrast which showed evolution of a right temporal occipital infarct, with effacement of the sulci. There was no significant midline shift, no significant mass effect. No hemorrhage, or hydrocephalus, dose of cortical atrophy somewhat more pronounced in the posterior fossa. We ordered stat neurology consultation and patient has been emergently transferred to the intensive care unit. Reevaluated today on 03/22/2021, patient remains in the ICU, seems to be alert and oriented 3. And patient is significantly improved. She does not seem to be in any distress. She is on 3 L nasal cannula with O2 saturation 97%. Speech evaluation is pending. Patient remains on Rocephin for UTI. Remains on GI and DVT prophylaxis. Continues to have slight left-sided facial droop, and left- sided weakness. Chest x-ray did show evidence of interstitial edema. Patient remains on diuretics. BUN is 51 creatinine 1.61. Slightly worsening renal profile since admission. May need to cut down the Lasix to 40 mg IV push daily instead of twice a day Objective - Vital Signs Vital signs: Vital Signs Temp 98.2 F 03/22/21 08:00 Pulse 89 03/22/21 11:00 Resp 11 L 03/22/21 11:00 BP 109/58 03/22/21 11:00 Pulse Ox 99 03/22/21 11:00 Intake & Output 03/21/21 03/22/21 03/22/21 18:59 06:59 18:59 Intake Total 220 120 Output Total 325 895 305 Balance -325 675 -185 Weight 100.5 kg 103.8 kg Intake: IV 220 120 0.9 NaCl- 220 120 Output: Urine 325 895 305 Other: Voiding Method Indwelling Catheter Indwelling Catheter Indwelling Catheter - Exam Physical Exam revealed a 70-year-old female in no distress, on few liters nasal cannula. Awake, alert oriented 3. Head: Atraumatic, normocephalic. HEENT:[Neck is supple.] [No neck masses.] [No thyromegaly.] [No JVD.] Chest: [Symmetrical chest expansion minimal crackles at the bases.] Cardiac Exam: [Normal S1 and S2, no S3 gallop, no murmur.] Abdomen: [Soft, nontender, no megaly, no rebound, no guarding, normal bowel sounds.] Extremities: [No clubbing, no edema, no cyanosis.] Neurological Exam: Alert and oriented 3. PH seems to be normal. Left-sided neglect remains about the same. Mild left facial asymmetry. Left-sided weakness is noted. Creatinine: Normal mood, affect and normal mental status examination. Skin: No rashes. - Labs CBC & Chem 7: 03/22/21 02:46 03/22/21 02:46 Labs: Abnormal Lab Results - Last 24 Hours (Table) 03/21/21 03/21/21 03/21/21 Range/Units 10:56 18:43 21:03 WBC (3.8-10.6) k/uL RBC (3.80-5.40) m/uL Hgb (11.4-16.0) gm/dL Neutrophils # (1.3-7.7) k/uL Lymphocytes # (1.0-4.8) k/uL Sodium (137-145) mmol/L BUN (7-17) mg/dL Creatinine (0.52-1.04) mg/dL Glucose (74-99) mg/dL POC Glucose (mg/dL) 354 H 456 H (75-99) mg/dL Hemoglobin A1c 14.1 H (4.0-6.0) % 03/21/21 03/22/21 03/22/21 Range/Units 23:53 00:41 02:46 WBC 13.2 H (3.8-10.6) k/uL RBC 3.69 L (3.80-5.40) m/uL Hgb 10.9 L (11.4-16.0) gm/dL Neutrophils # 12.0 H (1.3-7.7) k/uL Lymphocytes # 0.6 L (1.0-4.8) k/uL Sodium (137-145) mmol/L BUN (7-17) mg/dL Creatinine (0.52-1.04) mg/dL Glucose (74-99) mg/dL POC Glucose (mg/dL) 390 H 401 H (75-99) mg/dL Hemoglobin A1c (4.0-6.0) % 03/22/21 03/22/21 03/22/21 Range/Units 02:46 06:57 12:36 WBC (3.8-10.6) k/uL RBC (3.80-5.40) m/uL Hgb (11.4-16.0) gm/dL Neutrophils # (1.3-7.7) k/uL Lymphocytes # (1.0-4.8) k/uL Sodium 135 L (137-145) mmol/L BUN 51 H (7-17) mg/dL Creatinine 1.61 H (0.52-1.04) mg/dL Glucose 325 H (74-99) mg/dL POC Glucose (mg/dL) 276 H 270 H (75-99) mg/dL Hemoglobin A1c (4.0-6.0) % Microbiology - Last 24 Hours (Table) 03/18/21 23:08 Urine Culture - Final Urine,Voided Vilma albicans Escherichia coli Assessment and Plan Assessment: Impression: Acute temporal occipital infarct Altered mental status secondary to acute CVA. Acute diabetic ketoacidosis Non-ST elevation myocardial infarction Type 2 diabetes, insulin-requiring. Mild intermittent asthma Acute UTI secondary to E. coli. Degenerative joint disease. History of glaucoma. Recommendation: Continue present supportive care measures. Continue to follow while in the ICU with neurology. Continue antibiotics. Continue diuretics. Use BiPAP as needed. Cut down Lasix to 40 mg daily. Continue to monitor fluid status. Continue to monitor renal status. Prognosis remains guarded. And will continue to follow. Time with Patient: Less than 30
[2021-03-22 18:24] LABS: Glucose,Whole Blood 382 mg/dL (75-99)
[2021-03-22 20:24] LABS: Glucose,Whole Blood 426 mg/dL (75-99)
[2021-03-22] MEDS: ACETAMINOPHEN TAB 325 MG TAB PO PRN (20:30)
[2021-03-23] MEDS: HEPARIN SODIUM,PORCINE/PF 5,000 UNIT/0.5 ML SYRINGE SQ SCH ×3 (00:12→17:08)
[2021-03-23 04:20] LABS: Basophils % (A) 0 %; Eosinophils # (A) 0.3 k/uL (0-0.7); Eosinophils % (A) 1 %; HCT 34.9 % (34.0-46.0); HGB 11.4 gm/dL (11.4-16.0); Lymphocytes # (A) 1.8 k/uL (1.0-4.8); Lymphocytes % (A) 11 %; MCH 30.3 pg (25.0-35.0); MCHC 32.6 g/dL (31.0-37.0); MCV 92.9 fL (80.0-100.0); Mean Platelet Volume 8.9; Monocytes # (A) 1.1 k/uL (0-1.0); Monocytes % (A) 6 %; Neutrophils # (A) 14.1 k/uL (1.3-7.7); Neutrophils % (A) 81 %; Platelet Count 497 k/uL (150-450); RBC 3.75 m/uL (3.80-5.40); RDW 13.1 % (11.5-15.5); WBC 17.5 k/uL (3.8-10.6)
[2021-03-23 04:36] LABS: Calcium 9.3 mg/dL (8.4-10.2); Potassium 4.2 mmol/L (3.5-5.1); Total Bilirubin 0.2 mg/dL (0.2-1.3)
[2021-03-23 06:44] LABS: Glucose,Whole Blood 73 mg/dL (75-99)
[2021-03-23] MEDS: INSULIN ASPART (NovoLOG) 100 UNIT/ML VIAL SQ SCH ×8 (06:44→20:16)
[2021-03-23] MEDS: PANTOPRAZOLE 40 MG TABLET PO SCH (06:48)
[2021-03-23] MEDS: INSULIN DETEMIR (LEVEMIR) 100 UNIT/ML SYR SQ SCH ×2 (06:49→20:15)
--- NOTE | 2021-03-23 07:46 | FL ---
EXAMINATION TYPE: FL barium swallow w video DATE OF EXAM: 03/22/2021 MODIFIED SWALLOW / DEGLUTITION STUDY CLINICAL HISTORY: stroke TECHNIQUE: Deglutition study is performed utilizing thin liquid barium, thick liquid barium, barium thick pudding, and barium coated cracker. Total fluoro time 1 min 7 seconds COMPARISON: None. FINDINGS: The oral and pharyngeal phases show satisfactory initiation and propagation with all modali ties tested. Normal mastication is seen with solid modalities tested. There is no evidence of penet ration or aspiration with any modality tested. No significant pharyngeal residue was appreciated. IMPRESSION: Normal deglutition study. Please refer to speech therapist notes for further details if necessary.
[2021-03-23] MEDS: ATORVASTATIN 80 MG TAB PO SCH (07:59)
[2021-03-23] MEDS: SPIRONOLACTONE 25 MG TAB PO SCH (07:59)
[2021-03-23] MEDS: FUROSEMIDE 10 MG/ML 4 ML VIAL IV SCH (07:59)
[2021-03-23] MEDS: lisinopriL 5 MG TAB PO SCH (08:00)
[2021-03-23] MEDS: TICAGRELOR 90 MG TAB PO SCH ×2 (08:00→20:15)
[2021-03-23] MEDS: METOPROLOL SUCCINATE (ER) 25 MG TAB.ER.24H PO SCH (08:00)
[2021-03-23] MEDS: IPRATROPIUM-ALBUTEROL 3 ML NEB INHALATION SCH ×4 (08:00→21:11)
[2021-03-23] MEDS: ASPIRIN 81 MG PO SCH (08:00)
--- NOTE | 2021-03-23 08:50 | XR ---
EXAMINATION TYPE: XR chest 1V portable DATE OF EXAM: 03/23/2021 CLINICAL HISTORY: Congestion. TECHNIQUE: Portable semiupright view of the chest. COMPARISON: 03/22/2021 FINDINGS: Overlying cardiac device external to patient. Low lung volumes accentuates the cardiac [place] and lung markings. There is likely cardiomegaly. There may be a small right pleural effusion. The left posterior phrenic angles obscured by overlying device. Diffuse interstitial coarsening justin lar to 03/22/2021. No pneumothorax. IMPRESSION: There may be a small right pleural effusion. Otherwise unchanged radiograph appearance of the chest v ersus 03/22/2021.
--- NOTE | 2021-03-23 11:23 | P.CONS ---
History of Present Illness - Chief Complaint Gait disturbance - History of Present Illness I had the opportunity to see patient for inpatient rehab consultation with regard to gait disturbance. Patient admitted to [facility] March 18 with mental status change and markedly elevated blood sugars. Seen by cardiology who notes non-STEMI. Seen by pulmonary for critical care management, Dr. Connors. Chest x-rays followed for mild right pleural effusion. Carotid Doppler negative occlusions right or left. Head CT demonstrates acute evolving right temporal occipital infarct. Speech therapy assessed swallow within normal limits. PT and OT prescribed. Previous functional history as elicited from patient: 70-year-old right-handed white female single lives in second-floor apartment alone. Retired. Describes independent with own cooking, laundry, driving, standing shower and gait without device. PCP Dr. Mccord. Denies tobacco or alcohol. Family history of father with diabetes in mother with low blood sugar. Review of Systems Review of systems: ENT: Denies sneezes or discharge. Eyes: Denies discharge or photophobia. Cardiac: Denies chest pain or palpitation. Pulmonary: Mild to moderate shortness of breath. Breast: Denies discharge or lumps. Gastrointestinal: Denies nausea, emesis, constipation, diarrhea. Genitourinary: Denies discharge or frequency. Musculoskeletal: Denies muscle or bone aches. Neurologic: General weakness. Endocrine: Denies shakes or sweats. Oncology: Denies cancers. Dermatologic: Denies rash, itching, pruritus. ALLERGY/immunology: Denies sneezes, rashes. Past Medical History Past Medical History: Asthma, Diabetes Mellitus, Eye Disorder, Osteoarthritis (OA) Additional Past Medical History / Comment(s): insulin pump, jose luis glaucoma History of Any Multi-Drug Resistant Organisms: None Reported Past Surgical History: Breast Surgery, Heart Catheterization With Stent, Joint Replacement, Orthopedic Surgery, Tubal Ligation Additional Past Surgical History / Comment(s): jose luis breast reduction, rt arm s urgery, rt ankle surgery, rt hip replacement. 03/18/2021 Cardiac cath @ [facility] with Stent x 1 to prox LAD Past Anesthesia/Blood Transfusion Reactions: Previous Problems w/ Anesthesia Additional Past Anesthesia/Blood Transfusion Reaction / Comm: slow to come out of anesthesia Date of Last Stent Placement:: 03/18/2021 Past Psychological History: No Psychological Hx Reported Smoking Status: Former smoker Past Alcohol Use History: None Reported Past Drug Use History: None Reported - Past Family History Mother Family Medical History: COPD, Hypertension Additional Family Medical History / Comment(s): "hardening of the lungs" Father Family Medical History: Diabetes Mellitus Additional Family Medical History / Comment(s): from "old age" Medications and Allergies Home Medications Medication Instructions Recorded Confirmed Type Albuterol Inhaler [Ventolin Hfa 1 - 2 puff INHALATION RT-Q6H PRN 03/18/21 03/18/21 History Inhaler] Brimonidine Tartrate [Alphagan P 1 drop BOTH EYES BID 03/18/21 03/18/21 History 0.2% Ophth Soln] Dorzolamide 2% [Trusopt 2%] 1 drop BOTH EYES BID 03/18/21 03/18/21 History INSULIN ASPART (NovoLOG) [NovoLOG See Protocol SQ DIRECTED 03/18/21 03/18/21 History (formulary)] Ticagrelor [Brilinta] 90 mg PO BID #60 tab 03/19/21 Rx Aspirin 81 mg PO DAILY chew 03/20/21 Rx Atorvastatin [Lipitor] 80 mg PO DAILY #30 tab 03/20/21 Rx INSULIN ASPART (NovoLOG) [NovoLOG 0 unit SQ ACHS vial 03/20/21 Rx (formulary)] Insulin Detemir (Levemir) [Levemir] 10 unit SQ HS syr 03/20/21 Rx Metoprolol Succinate (ER) [Toprol 12.5 mg PO DAILY #0 tab.er.24h 03/20/21 Rx XL] Nitroglycerin Sl Tabs [Nitrostat] 0.4 mg SUBLINGUAL Q5M PRN tab 03/20/21 Rx Spironolactone [Aldactone] 25 mg PO DAILY #90 tablet 03/20/21 Rx lisinopriL [Zestril] 5 mg PO DAILY #0 tab 03/20/21 Rx Allergies Allergy/AdvReac Type Severity Reaction Status Date / Time No Known Allergies Allergy Verified 03/18/21 14:36 Physical Exam Vitals: Vital Signs Temp Pulse Pulse Resp BP Pulse Ox 03/23/21 09:00 85 21 122/65 95 03/23/21 08:00 97.7 F 78 15 123/53 96 03/23/21 07:00 75 40 H 125/59 94 L 03/23/21 06:00 80 26 H 125/70 96 03/23/21 05:00 79 17 116/70 97 03/23/21 04:00 97.5 F L 79 26 H 120/69 99 03/23/21 03:00 69 61 H 125/70 98 03/23/21 02:00 79 28 H 122/68 98 03/23/21 01:00 78 26 H 122/66 99 03/23/21 00:00 98.5 F 77 22 123/64 97 03/22/21 23:00 80 25 H 117/68 95 03/22/21 22:00 81 31 H 111/80 94 L 03/22/21 21:00 92 15 125/84 97 03/22/21 20:00 98.4 F 87 24 126/69 96 03/22/21 19:00 86 30 H 118/68 98 03/22/21 18:00 82 31 H 113/75 99 03/22/21 17:00 87 13 111/66 98 03/22/21 16:00 97.9 F 82 26 H 124/83 97 03/22/21 15:00 89 28 H 96 03/22/21 14:00 90 30 H 93/44 98 03/22/21 13:00 91 29 H 107/58 98 03/22/21 12:00 98.1 F 85 84 24 114/53 97 Intake and Output 03/22/21 03/23/21 03/23/21 22:59 06:59 14:59 Intake Total 210 160 390 Output Total 350 230 35 Balance -140 -70 355 Intake: IV 160 160 40 0.9 NaCl- 160 160 40 Intake, IV Titration 50 Amount cefTRIAXone 1 gm In 50 Sodium Chloride 0.9% 50 ml @ 100 mls/hr IVPB Q24HR [facility] Rx#:[id number] Oral 50 300 Output: Urine 350 230 35 Other: Voiding Method Indwelling Catheter Indwelling Catheter Indwelling Catheter Weight 107.3 kg Skin: Atrophic, intact. General: Overweight build and comfortable appearance. Head: Normocephalic, atraumatic. Eyes: Symmetric. Pupils equal round. Ears: Symmetric. Hearing within normal limits. Mouth: Clear. Neck: Supple. Carotid without bruit. Cardiac: Regular rate and rhythm. Lungs: Clear anteriorly and posteriorly. Abdomen: Soft active nontender. Extremities: Normal tone. Neurological: Mental status: Alert, cooperative, pleasant. Cranial nerves: Symmetric facial tone and trapezius. Motor: Active movement all 4 limbs. Arms at least antigravity in the legs at best antigravity. Sensation: Intact throughout. DTRs: Symmetric and equal throughout. Mobility: Required assistance for transfer from bed to bedside Jazmin chair. Results CBC & Chem 7: 03/23/21 03:55 03/23/21 03:55 Labs: Abnormal Lab Results - Last 24 Hours (Table) 03/22/21 03/22/21 03/22/21 Range/Units 12:36 18:23 20:22 WBC (3.8-10.6) k/uL RBC (3.80-5.40) m/uL Plt Count (150-450) k/uL Neutrophils # (1.3-7.7) k/uL Monocytes # (0-1.0) k/uL BUN (7-17) mg/dL Creatinine (0.52-1.04) mg/dL Glucose (74-99) mg/dL POC Glucose (mg/dL) 270 H 382 H 426 H (75-99) mg/dL AST (14-36) U/L Total Protein (6.3-8.2) g/dL Albumin (3.5-5.0) g/dL 03/23/21 03/23/21 03/23/21 Range/Units 03:55 03:55 06:42 WBC 17.5 H (3.8-10.6) k/uL RBC 3.75 L (3.80-5.40) m/uL Plt Count 497 H (150-450) k/uL Neutrophils # 14.1 H (1.3-7.7) k/uL Monocytes # 1.1 H (0-1.0) k/uL BUN 60 H (7-17) mg/dL Creatinine 1.64 H (0.52-1.04) mg/dL Glucose 65 L (74-99) mg/dL POC Glucose (mg/dL) 73 L (75-99) mg/dL AST 44 H (14-36) U/L Total Protein 6.0 L (6.3-8.2) g/dL Albumin 3.0 L (3.5-5.0) g/dL Assessment and Plan (1) DKA (diabetic ketoacidosis) Current Visit: Yes Status: Acute Code(s): E11.10 - TYPE 2 DIABETES MELLITUS WITH KETOACIDOSIS WITHOUT COMA SNOMED Code(s): 979353924 (2) NSTEMI (non-ST elevated myocardial infarction) Current Visit: Yes Status: Acute Code(s): I21.4 - NON-ST ELEVATION (NSTEMI) MYOCARDIAL INFARCTION SNOMED Code(s): 16168398 Plan: Impression: 1. Gait disturbance. 2. Diabetes with elevated blood sugars, DKA. 3. Non-STEMI. 4. Right temporal supple infarct. 5. Asthma. 6. Osteoarthritis. Comments and plan: At this time speech is undergoing and PT and OT prescribed. Follow therapies with yourself. Discussed possible inpatient rehab with patient and she seems agreeable necessary. Unsure patient support for return to home alone.
--- NOTE | 2021-03-23 11:35 | P.PN ---
Subjective This is a 70-year-old female with history of diabetes mellitus type 2, osteoarthritis, diabetic neuropathy, previous tobacco abuse, macular degenerat ion. She previously did not follow-up with a home appraiser regularly. She was admitted to the hospital secondary to non-STEMI and DKA. 03/18/2021 Patient underwent cardiac catheterization with Dr. Goldstein which revealed LAD 100% stenosis, diagonal 50-60% stenosis, OM1 250-60% stenosis, RCA 30-40%, Extremely elevated left-sided filling pressures likely related to ischemic cardiomyopathy. Status post PCI to the LAD. Echocardiogram completed revealed ejection fraction less than 20%, small pleural effusion, mid lateral, mid anteroseptal, apical lateral, apical inferior LV wall hypokinesis. Apical septum LV wall motion is normal. 03/21/2021: Patient went into respiratory distress in the morning. She was given IV Lasix and placed on a bipap. She is lethargic at the time of examination. Lifevest was unable to be placed yesterday due to patients mental status. CXR reveals increased interstitial lung markings that may represent interstitial edema. STAT CT brain was ordered- revealed cerebral vascular infarct acute temporal occipital infarct. Neurology consulted. Patient underwent carotid doppler- no evidence of significant stenosis. 03/22/2021: Chest Xray this morning, revealed heart size enlarged, patient is rotated, patchy bibasilar densities, the interstitium is increased. Limited Echo- EF <20%, severe global hypokinesis, no evidence of LV thrombus 03/23/2021: Patient seen and examined at bedside. Her breathing has improved. Her mentation has improved. She is alert and oriented x 3. Patient is currently maintained on aspirin 81 mg daily, atorvastatin 80 mg daily, Lasix IV 40 mg daily, metoprolol succinate 25 mg daily, spironolactone 25 mg daily, Brilinta 90mg BID. Lab oratory data review, WBC 17.5, Hgb 11.4, Plt 497,Sodium 138, potassium 4.2, BUN 60, serum creatinine 1.64 (1.60 yesterday) Patient is maintaining sinus mechanism heart rate 60-80s. PHYSICAL EXAM: VITAL SIGNS: Blood pressure 122/65, heart rate 85, afebrile, maintaining sat urations 95% on room air GENERAL: In no acute distress. NECK: Supple. No JVD or thyromegaly LUNGS: Respirations even and unlabored. Lungs diminished bilaterally. HEART: Regular rate and rhythm. S1 and S2 heard. Systolic murmur noted EXTREMITIES: Normal range of motion. No clubbing or cyanosis. Peripheral pulses intact. No lower extremity edema. Right radial cath site with pulse present NEURO: Alert and oriented x 3. ASSESSMENT: Non-STEMI, status post PCI to LAD on 03/18/21 Ischemic cardiomyopathy, EF 20% Acute systolic heart failure with reduced ejection fraction Subacute ischemic CVA on 03/21/21 Diabetes mellitus type 2 Hemoglobin A1C 14.1 Diabetic Ketoacidosis Peripheral neuropathy Acute hypoxic respiratory failure requiring bipap Metabolic encephalopathy Acute Kidney Injury PLAN: Limited echocardiogram EF <20%, no LV thrombus seen Continue IV Lasix 40mg daily (decreased from BID yesterday) Continue to monitor renal function and electrolytes Continue current cardiac medications including aspirin 81 mg daily, atorvastatin 80 mg daily, lisinopril 5 mg daily, metoprolol succinate 25 mg daily, Aldactone 25mg daily, and Brilinta 90 mg twice a day Patient will require Lifevest at the time of discharge to prevent sudden cardiac due to severe cardiomyopathy Neurology following Pulmonary following Further recommendations pending patient course Nurse practitioner note has been reviewed by physician. Signing provider agrees with the documented findings, assessment, and plan of care. Objective - Vital Signs Vital signs: Vital Signs Temp 97.7 F 03/23/21 08:00 Pulse 78 03/23/21 08:00 Resp 15 03/23/21 08:00 BP 123/53 03/23/21 08:00 Pulse Ox 96 03/23/21 08:00 Intake & Output 03/22/21 03/23/21 03/23/21 18:59 06:59 18:59 Intake Total 240 290 340 Output Total 680 360 35 Balance -440 -70 305 Weight 107.3 kg Intake: IV 240 240 40 0.9 NaCl- 240 240 40 Oral 50 300 Output: Urine 680 360 35 Other: Voiding Method Indwelling Catheter Indwelling Catheter - Labs CBC & Chem 7: 03/23/21 03:55 03/23/21 03:55 Labs: Abnormal Lab Results - Last 24 Hours (Table) 03/22/21 03/22/21 03/22/21 Range/Units 12:36 18:23 20:22 WBC (3.8-10.6) k/uL RBC (3.80-5.40) m/uL Plt Count (150-450) k/uL Neutrophils # (1.3-7.7) k/uL Monocytes # (0-1.0) k/uL BUN (7-17) mg/dL Creatinine (0.52-1.04) mg/dL Glucose (74-99) mg/dL POC Glucose (mg/dL) 270 H 382 H 426 H (75-99) mg/dL AST (14-36) U/L Total Protein (6.3-8.2) g/dL Albumin (3.5-5.0) g/dL 03/23/21 03/23/21 03/23/21 Range/Units 03:55 03:55 06:42 WBC 17.5 H (3.8-10.6) k/uL RBC 3.75 L (3.80-5.40) m/uL Plt Count 497 H (150-450) k/uL Neutrophils # 14.1 H (1.3-7.7) k/uL Monocytes # 1.1 H (0-1.0) k/uL BUN 60 H (7-17) mg/dL Creatinine 1.64 H (0.52-1.04) mg/dL Glucose 65 L (74-99) mg/dL POC Glucose (mg/dL) 73 L (75-99) mg/dL AST 44 H (14-36) U/L Total Protein 6.0 L (6.3-8.2) g/dL Albumin 3.0 L (3.5-5.0) g/dL
--- NOTE | 2021-03-23 12:00 | P.PN ---
Subjective Progress Note Date: 03/23/21 Principal diagnosis: Altered mental status related to DKA, improved 03/19/2021, the patient is on the medical floor. She got transferred out of the intensive care unit. She had a non-STEMI and the patient underwent cardiac catheterization and PCI to LAD. She also had a component of the care that was treated. She was under better control and she is back on long-term insulin for blood sugar control. Echocardiogram showed an ejection fraction of less than 20%. She also has small pleural effusion. BP is under adequate control. No chest pain. She is currently on room air oxygen. No nausea. No vomiting. No diarrhea. No abdominal pain. Potassium level needs to be replaced at the level is at 2.8. BUN is at 25 with a creatinine of 0.7. Anion gap is at 6. Glucose is 116. The patient has been on a combination of aspirin July 20. She is on metoprolol. She is on high-dose statins with Lipitor 80 mg by mouth daily. She is on Levemir insulin 20 units along with a sinus Coverage. On 03/20/2021 patient seen in follow-up on selective care unit, she is resting in bed, she is on room air, she is breathing comfortably, room air pulse ox is 94-99%, hemodynamically she is stable, she is answering questions, however she may still be a bit confused. No fever or chills, lung sounds are clear, no cough or congestion. Her labs have been reviewed, her white count is improving, is down to 14.8, hemoglobin is 11.2, electrolytes are within normal limits, B1 is 25, creatinine 0.9. Patient continues on Rocephin for possibility of urinary tract infection, urine culture is showing gram-negative bacilli and Vilma albicans. On 03/21/2001 patient seen in follow-up on selective care unit, early this morning rapid response team was called to the bedside for a concern of increased shortness of breath. Patient reported not feeling well and having increased shortness of breath. Patient was placed on 100% nonrebreather mask, she was afebrile. Denied any chest pain, no nausea vomiting or cough. Chest x-ray was obtained showing increased interstitial lung markings that could represent interstitial edema, patient was given a dose of IV Lasix 40 mg IV push 1 early in the morning, she has produced around 300 mL of urine. Patient was placed on BiPAP support with pressures of 12 and 6 and FiO2 100%, blood gas was obtained showing pO2 of 194, pCO2 42, and pH of 7.39. FiO2 was cut back to 50%. Patient was also reportedly wheezy, she was given a couple doses of IV Solu-Medrol. During our evaluation patient is very lethargic, she is hardly arousable, she did finally open her eyes to repeated verbal stimulation, however she is not sustaining wakefulness, her blood gas does not explain her level of consciousness, her oxygenation has improved with diuretics, BiPAP support. However her mentation continued to be very altered, and depressed, we ordered stat CT of the brain without contrast which showed evolution of a right temporal occipital infarct, with effacement of the sulci. There was no significant midline shift, no significant mass effect. No hemorrhage, or hydrocephalus, dose of cortical atrophy somewhat more pronounced in the posterior fossa. We ordered stat neurology consultation and patient has been emergently transferred to the intensive care unit. On 03/23/2021 patient seen in follow-up in the intensive care unit. She is resting in bed, appears to be a bit lethargic but arousable, she is somewhat slow with her answers, but she knew she was in [place], she knew she was in [facility], she thought it was February, but need to correct year, she thought the president was President Sixto. Appears to be a bit dyspneic with conversation, but she is on room air, in no acute distress, pulse ox is 95-96%, afebrile, blood pressure stable, 122/65 this morning. She is in sinus mechanism, with a controlled rate. Patient has been diuresed, she is in -510 mL fluid balance over the last 24 hours, today's chest x-ray shows a small right- sided pleural effusion, low lung volumes. Patient had a modified barium swallow yesterday, which showed satisfactory initiation and propagation with all modalities. No evidence of penetration or aspiration with any modality, and no significant pharyngeal residue. Remains on antibiotics, urine culture showed E. coli, crit abiotic coverage is E. coli. Neurologically she seems to be stable, no left facial weakness appreciated on today's exam, however her left web analytics specialist is still slightly weak compared the right she is moving all 4 extremities. Patient continues on aspirin and Brilinta and high-dose statins. Carotid Doppler showed no significant stenosis, 2-D echo showed severe global hypokinesis of the left ventricle, and severely impaired EF of less than 20%. Objective - Vital Signs Vital signs: Vital Signs Temp 97.7 F 03/23/21 08:00 Pulse 85 03/23/21 09:00 Resp 21 03/23/21 09:00 BP 122/65 03/23/21 09:00 Pulse Ox 95 03/23/21 09:00 Intake & Output 03/22/21 03/23/21 03/23/21 18:59 06:59 18:59 Intake Total 240 290 390 Output Total 680 360 35 Balance -440 -70 355 Weight 107.3 kg Intake: IV 240 240 40 0.9 NaCl- 240 240 40 Intake, IV Titration 50 Amount cefTRIAXone 1 gm In 50 Sodium Chloride 0.9% 50 ml @ 100 mls/hr IVPB Q24HR [facility] [place] Rx#:[id number] Oral 50 300 Output: Urine 680 360 35 Other: Voiding Method Indwelling Catheter Indwelling Catheter Indwelling Catheter - Exam GENERAL EXAM: Very stuporous, 70-year-old white female, currently on room air with a pulse ox of 95% but appears to be comfortable in no apparent distress. HEAD: Normocephalic/atraumatic. EYES: Normal reaction of pupils, equal size. Conjunctiva pink, sclera white. NOSE: Clear with pink turbinates. THROAT: No erythema or exudates. NECK: No masses, no JVD, no thyroid enlargement, no adenopathy. CHEST: No chest wall deformity. Symmetrical expansion. LUNGS: Equal air entry with no crackles, wheeze, rhonchi or dullness. CVS: Regular rate and rhythm, normal S1 and S2, no gallops, no murmurs, no rubs ABDOMEN: Soft, nontender. No hepatosplenomegaly, normal bowel sounds, no guarding or rigidity. EXTREMITIES: No clubbing, no edema, no cyanosis, 2+ pulses and upper and lower extremities. MUSCULOSKELETAL: Muscle strength and tone normal. SPINE: No scoliosis or deformity SKIN: No rashes CENTRAL NERVOUS SYSTEM: Lethargic, stuporous. No focal deficits, tone is normal in all 4 extremities. - Labs CBC & Chem 7: 03/23/21 03:55 03/23/21 03:55 Labs: Abnormal Lab Results - Last 24 Hours (Table) 03/22/21 03/22/21 03/22/21 Range/Units 12:36 18:23 20:22 WBC (3.8-10.6) k/uL RBC (3.80-5.40) m/uL Plt Count (150-450) k/uL Neutrophils # (1.3-7.7) k/uL Monocytes # (0-1.0) k/uL BUN (7-17) mg/dL Creatinine (0.52-1.04) mg/dL Glucose (74-99) mg/dL POC Glucose (mg/dL) 270 H 382 H 426 H (75-99) mg/dL AST (14-36) U/L Total Protein (6.3-8.2) g/dL Albumin (3.5-5.0) g/dL 03/23/21 03/23/21 03/23/21 Range/Units 03:55 03:55 06:42 WBC 17.5 H (3.8-10.6) k/uL RBC 3.75 L (3.80-5.40) m/uL Plt Count 497 H (150-450) k/uL Neutrophils # 14.1 H (1.3-7.7) k/uL Monocytes # 1.1 H (0-1.0) k/uL BUN 60 H (7-17) mg/dL Creatinine 1.64 H (0.52-1.04) mg/dL Glucose 65 L (74-99) mg/dL POC Glucose (mg/dL) 73 L (75-99) mg/dL AST 44 H (14-36) U/L Total Protein 6.0 L (6.3-8.2) g/dL Albumin 3.0 L (3.5-5.0) g/dL Assessment and Plan Plan: #1. Altered mental status related to an acute temporal occipital infarct on 03/21/2021, improved #2. Altered mental status on presentation, with negative brain CT, initially suspected to be related to acute DKA #3. Acute diabetic ketoacidosis, related to medical noncompliance, and patient had not been taking her medications since 03/12/2021 #4. Non-ST elevated myocardial infarction, suspect subacute VT earlier this week, post PCI to LAD with stenting #5. Coronary artery disease including 100% stenosis of the proximal LAD, 50-60% stenosis of the diagonal branch, and 60% stenosis of the OM 2, and 30-40% stenosis of the RCA. Status post PCI and stenting of the LAD. Elevated LVEDP of 42 #6. Diabetes mellitus type 2 on insulin pump on an outpatient basis #7. Mild intermittent chronic bronchial asthma #8. Glaucoma #9. Osteoarthritis #10. Acute urinary tract infection related to E. coli Plan: Vital signs have been stable Neurologically patient is improving, still has mild left hand web analytics specialist weakness Neurology is following We'll continue with Lasix we'll cutback the dose to once daily Maintain aspiration precautions Stable to transfer out of intensive care unit to selective care Blood sugar management per primary care team We'll continue to follow I performed a history & physical examination of the patient and discussed their management with my nurse practitioner, Kavita Asher. I reviewed the nurse practitioner's note and agree with the documented findings and plan of care. Lung sounds are positive for diminished breath sounds throughout the lung villeda. The findings and the impression was discussed with the patient. I attest to the documentation by the nurse practitioner. Time with Patient: Less than 30
[2021-03-23 12:31] LABS: Glucose,Whole Blood 103 mg/dL (75-99)
--- NOTE | 2021-03-23 13:49 | P.PN ---
Subjective Progress Note Date: 03/23/21 Patient was seen for a follow-up. Patient's sister was also present. Patient is sitting in the recliner. Patient wants to go home. Offers no new focal symptoms. Appears slightly short of breath. Objective - Vital Signs Vital signs: Vital Signs Temp 97.7 F 03/23/21 08:00 Pulse 78 03/23/21 12:00 Resp 27 H 03/23/21 12:00 BP 93/62 03/23/21 12:00 Pulse Ox 93 L 03/23/21 12:00 Intake & Output 03/22/21 03/23/21 03/23/21 18:59 06:59 18:59 Intake Total 240 290 390 Output Total 680 360 35 Balance -440 -70 355 Weight 107.3 kg Intake: IV 240 240 40 0.9 NaCl- 240 240 40 Intake, IV Titration 50 Amount cefTRIAXone 1 gm In 50 Sodium Chloride 0.9% 50 ml @ 100 mls/hr IVPB Q24HR [facility] Rx#:[id number] Oral 50 300 Output: Urine 680 360 35 Other: Voiding Method Indwelling Catheter Indwelling Catheter Indwelling Catheter - Exam On examination patient is an elderly female, in no distress. She appears to have slight difficulty in breathing, easily gets tired. She is very pleasant. Speech and language functions are normal. On cranial examination patient has complete left homonymous hemianopia, with severe neglect on the left. She has mild left facial asymmetry. Other cranial nerves are normal. On muscle strength testing there is mild left pronator drift and the strength a ppears slightly weak in the left deltoid and biceps otherwise is normal bilaterally. No ataxia for [id number] testing. Sensory to touch is equal with no neglect. Tone and bulk of muscles normal - Labs CBC & Chem 7: 03/23/21 03:55 03/23/21 03:55 Labs: Abnormal Lab Results - Last 24 Hours (Table) 03/22/21 03/22/21 03/23/21 Range/Units 18:23 20:22 03:55 WBC 17.5 H (3.8-10.6) k/uL RBC 3.75 L (3.80-5.40) m/uL Plt Count 497 H (150-450) k/uL Neutrophils # 14.1 H (1.3-7.7) k/uL Monocytes # 1.1 H (0-1.0) k/uL BUN (7-17) mg/dL Creatinine (0.52-1.04) mg/dL Glucose (74-99) mg/dL POC Glucose (mg/dL) 382 H 426 H (75-99) mg/dL AST (14-36) U/L Total Protein (6.3-8.2) g/dL Albumin (3.5-5.0) g/dL 03/23/21 03/23/21 03/23/21 Range/Units 03:55 06:42 12:29 WBC (3.8-10.6) k/uL RBC (3.80-5.40) m/uL Plt Count (150-450) k/uL Neutrophils # (1.3-7.7) k/uL Monocytes # (0-1.0) k/uL BUN 60 H (7-17) mg/dL Creatinine 1.64 H (0.52-1.04) mg/dL Glucose 65 L (74-99) mg/dL POC Glucose (mg/dL) 73 L 103 H (75-99) mg/dL AST 44 H (14-36) U/L Total Protein 6.0 L (6.3-8.2) g/dL Albumin 3.0 L (3.5-5.0) g/dL Assessment and Plan Assessment: * Sub-acute ischemic CVA 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 * Toxic metabolic encephalopathy, multifactorial, remarkably improved as of today. * Status post DKA * Severe CHF with EF <20% * Acute MS, status post stent to the LAD * Diabetes * History of mild intellectual disability Plan: * Continue aspirin and Brilinta 90 mg twice a day and high-dose statins. * Carotid Doppler revealed no significant stenosis. Antegrade flow in both vertebral arteries. * 2-D echo revealed severe global hypokinesis of left ventricle. Overall left ventricular systolic function is severely impaired with an EF <20%. Lumason used revealed no thrombus. Would defer to cardiology to assess for any further embolic risk and need for ?EMILY. * Other medical management as per IM. * Optimize control of diabetes * Hemoglobin A1c 14.1 consistent with poorly controlled diabetes. Optimize control of diabetes to target A1c <7.0. * Fasting lipid panel showed cholesterol 138, LDL 73, HDL 36, triglycerides 145. Continue Lipitor 80 mg * Neurologically clear.
--- NOTE | 2021-03-23 14:32 | P.PN ---
Subjective Progress Note Date: 03/23/21 History of present illness This is a 70-year-old patient of Dr. Mccord being seen in ICU with past medical history significant for reactive query asthma, diabetes mellitus, glaucoma, CAD with previous stent, previous smoker. Patient was seen in the emergency room to significantly elevated blood sugars. Patient presented to the ED for evaluations regarding not acting appropriately and not taking her medications. Patient's failure to respond results and will check the patient's [id number]. This arrived to the house she comes patient is not taking any of her medications since March 12 and has not had any contact with her family. Patient was upset about being brought to the emergency room. In complaint of chest pain. Patient was found to have elevated troponin and abnormal EKG. She was taken to the [facility] where she underwent a PCI with Dr. Goldstein and stenting t o the proximal LAD. Patient was also found to be in DKA. At this time patient is functioning resting comfortably without any acute distress. Patient is able to answer questions appropriately stating that her insulin pump was not working appropriately and she is not taking any medication since March 12. Patient is unsure why she stopped taking her medications just that she didn't take them. Patient denies any chest pain at this time. Patient is afebrile. Heart rate 75, respirations 20, blood pressure 140/73, oxygen saturation is 97% on room air. 03/19: Patient found resting in bed on 3 south. She is able to recount the episodes from yesterday and the day before. Echocardiogram shows EF of 20%, LV wall function hyperkinetic, LA is moderately dilated 34-39 mL/M2, small pleural effusion. Fabi addressed with patient living alone. She may need extra assistance from her brother and [id number]. Phone call to brother will be made this afternoon Dr. Mccord. Patient denies any chest pain or difficulty breathing. Blood sugars have been managed. Unsure patient will be able to ma intain a insulin pump upon discharge. Patient remains afebrile, pulse rate 73, respirations 18, blood pressure 113/59 pulse oxing 98% on room air. 03/20: Patient denies any chest pain or chest pressure. She has been seen by cardiology this morning and recommendations are to continue current cardiac medications and patient will require LifeVest at the time of discharge to prevent sudden cardiac due to severe cardiomyopathy. global commodity manager is making arrangements for LifeVest. Patient has been afebrile, heart rate 86, blood pressure 119/79, pulse ox 94% on room air. Repeat blood work reveals BUN 25 creatinine 0.9. Blood sugars running between 92 and 193. Electrolytes within normal range. WBC 14.8, hemoglobin 11.2, platelet count 370. Plan is for discharge to rehab today once LifeVest is obtained and all arrangements are completed. 03/21: Patient was scheduled for discharge to rehab yesterday however arrangements were not completed for the LifeVest. When the LifeVest rep came in last evening, patient's mental status was off and the rep did not feel c omfortable leaving the LifeVest with the patient. Patient had an event last evening for which sound physician attended and Dr. Mccracken was contacted. Patient was found to be in respiratory distress and was placed on a nonrebreather followed by BiPAP. She was also provided Lasix 40 mg IV push, Geronimo catheter was ordered. Chest x-ray at that time revealed increased interstitial lung markings may represent interstitial edema. Patient was lethargic in the morning and mentation was not at her baseline. She underwent a CAT scan of the brain which revealed cerebral vascular accident. Patient was transferred into the intensive care unit. She was seen by neurology and patient was not a candidate for TPA. Neurology recommended continuing aspirin and polenta and high-dose statin. Carotid Doppler was ordered which revealed no hemodynamically significant stenosis. 03/22: Patient is seen today in the intensive care unit. Patient's mental status is back to baseline, she is awake alert and oriented 3. Chest x-ray this morning reveals correlate for congestive heart failure, interstitial edema, pneumonia not excluded. Limited echocardiogram revealed severe global hypokinesia with EF less than 20%. No thrombus seen. The patient has been seen by speech therapy this morning and has scheduled patient for modified barium swallow. She is currently on 3 L nasal cannula with pulse ox of 97 and 99%. Heart rate in the 80s and 90s, blood pressure 113/58. Blood sugars were quite high overnight and the following adjustments have been made to her insulin Levemir changed twice daily at 15 units and NovoLog 5 units before meals and at bedtime added along with continuing NovoLog scale. Hemoglobin A1c is 14.1. Repeat renal function is BUN 51 and creatinine 1.61. WBC 13.2, hemoglobin 10.9, platelet count 426. Physical therapy and occupational therapy continue to follow the patient. Patient is to have LifeVest fitted today. Discharge plan is to [facility]. 03/23: Patient is in the intensive care unit waiting for MedSur bed. She still has some left-sided neglect. She is working with PT and OT and inpatient rehab has been recommended. Patient is been evaluated by Dr. Beyer from inpatient rehab at [facility]. We are currently waiting for insurance authorization which may take 2-3 days. The patient denies any new complaints. She has been afebrile, heart rate 80, blood pressure 113/65, pulse ox 93% on room air. Repeat blood work reveals WBC 17.5, uric level I.4, platelet count 497. Electrolytes are normal. BUN 16 creatinine 1.64 which is stable from y . Blood this morning was 73. Last evening she was high at 426. She is currently on Levemir 10 units twice daily, NovoLog 3 units with meals and at bedtime and insulin scale. Patient did receive 12 units of insulin last evening at bedtime for the blood sugar 426. Patient underwent modified barium swallow yesterday with recommendations for regular diet and thin liquids with no impairment noted. Anticipate probable discharge by tomorrow. Review Of Systems: Constitutional: No fever, no chills, no night sweats. No weight change. Generalized weakness, reported fatigue no lethargy. No daytime sleepiness. EENT: No headache. No blurred vision or double vision, no loss of vision. No loss of Hearing, no ringing in the ears, no dizziness. No nasal drainage or congestion. No epistaxis. No sore throat. Lungs: No shortness of breath, cough, no sputum production. No wheezing. Cardiovascular: No chest pain, no lower extremity edema. No palpitations. No paroxysmal nocturnal dyspnea. No orthopnea. No lightheadedness or dizziness. No syncopal episodes. Abdominal: No abdominal pain. No nausea, vomiting. No diarrhea. No constipation. No bloody or tarry stools.. No loss of appetite. Genitourinary: No dysuria, increased frequency, urgency. No urinary retention. Musculoskeletal: No myalgias. No muscle weakness, no gait dysfunction, no frequent falls. No back pain. No neck pain. Integumentary: No wounds, no lesions. No rash or pruritus. No unusual bruising. No change in hair or nails. Neurologic: No aphasia. No facial droop. Reported change in mentation, improved. No head injury. No headache. No paralysis, improved. No paresthesia. Psychiatric: No depression. No anxiety. No mood swings. Endocrine: No abnormal blood sugars. No weight change. No excessive sweating or thirst. No cold intolerance. Physical examination General Appearance: appears stated age. Neck HEENT: Supple, no lymphadenopathy, no thyroid enlargement, no carotid bruits. Lungs: Clear to auscultation without crackles or wheezes no rhonchi, no deformity. Chest Wall: Chest wall normal expansion with deep inspiration no tenderness and no deformity was found on exam, no costochondral pain or discomfort. Heart: Regular rate and rhythm, S1, S2 normal, no murmur, rub or gallop. Back: Symmetric, no curvature, ROM normal. Abdomen: Soft, non-tender, no rebound or rigidity, no hepatosplenomegaly. Geronimo catheter in place. Extremities: Extremities normal, atraumatic, no cyanosis or edema. Pulses: 2+ and symmetric. Skin: Skin color, texture, tugor normal, no rashes or lesions. Neurologic: Awake alert and oriented 3 Assessment and plan 1. Metabolic encephalopathy secondary to diabetic ketoacidosis. 2. Non-STEMI suspect acute MT earlier this week, post PCI of proximal LAD. Brilinta 90 mg by mouth twice a day, aspirin 81 mg daily, Lipitor 80 mg daily, Toprol-XL 25 mg daily, lisinopril 5 mg daily 3. Diabetic ketoacidosis related to noncompliance, as noted in #1. Continue Levemir increased to 15 units twice daily, NovoLog 5 units before meals and bedtime and NovoLog scale 4. Coronary artery disease: status post heart catheterization with LAD 100% stenosis, diagonal 50-60% stenosis, OM1 250-60% stenosis, RCA 30-40% stenosis status post proximal LAD stent. Atorvastatin 80 mg by mouth daily, 5. Diabetes mellitus on insulin pump: Insulin pump is currently not working. Continue as above. 6. Severe cardiomyopathy with EF of less than 20%. Cardiology is ordered LifeVest. patient is to be fitted for LifeVest today. 7. 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 speech therapy has evaluated and scheduled patient for modified barium swallow. 8. Mild intellectual disability. 9. Reactive asthma chronic, stable 10 . Glaucoma., Stable 11. Osteoarthritis, Tylenol as needed 12. DVT prophylaxis. Heparin 5000 units every 8 hours 13. GI prophylaxis: Protonix 40 mg by mouth before meals breakfast CODE STATUS: Full code Discharge plan: [facility] for inpatient rehab on Saturday. Consult with Dr. Kristyn dang Impression and plan of care have been directed as dictated by the signing physician. Lata Key nurse practitioner acting as scribe for signing physician. Objective - Vital Signs Vital signs: Vital Signs Temp 97.7 F 03/23/21 08:00 Pulse 85 03/23/21 09:00 Resp 21 03/23/21 09:00 BP 122/65 03/23/21 09:00 Pulse Ox 95 03/23/21 09:00 Intake & Output 03/22/21 03/23/21 03/23/21 18:59 06:59 18:59 Intake Total 240 290 390 Output Total 680 360 35 Balance -440 -70 355 Weight 107.3 kg Intake: IV 240 240 40 0.9 NaCl- 240 240 40 Intake, IV Titration 50 Amount cefTRIAXone 1 gm In 50 Sodium Chloride 0.9% 50 ml @ 100 mls/hr IVPB Q24HR [facility] Rx#:[id number] Oral 50 300 Output: Urine 680 360 35 Other: Voiding Method Indwelling Catheter Indwelling Catheter Indwelling Catheter - Labs CBC & Chem 7: 03/23/21 03:55 03/23/21 03:55 Labs: Abnormal Lab Results - Last 24 Hours (Table) 03/22/21 03/22/21 03/22/21 Range/Units 12:36 18:23 20:22 WBC (3.8-10.6) k/uL RBC (3.80-5.40) m/uL Plt Count (150-450) k/uL Neutrophils # (1.3-7.7) k/uL Monocytes # (0-1.0) k/uL BUN (7-17) mg/dL Creatinine (0.52-1.04) mg/dL Glucose (74-99) mg/dL POC Glucose (mg/dL) 270 H 382 H 426 H (75-99) mg/dL AST (14-36) U/L Total Protein (6.3-8.2) g/dL Albumin (3.5-5.0) g/dL 03/23/21 03/23/21 03/23/21 Range/Units 03:55 03:55 06:42 WBC 17.5 H (3.8-10.6) k/uL RBC 3.75 L (3.80-5.40) m/uL Plt Count 497 H (150-450) k/uL Neutrophils # 14.1 H (1.3-7.7) k/uL Monocytes # 1.1 H (0-1.0) k/uL BUN 60 H (7-17) mg/dL Creatinine 1.64 H (0.52-1.04) mg/dL Glucose 65 L (74-99) mg/dL POC Glucose (mg/dL) 73 L (75-99) mg/dL AST 44 H (14-36) U/L Total Protein 6.0 L (6.3-8.2) g/dL Albumin 3.0 L (3.5-5.0) g/dL
[2021-03-23 16:51] LABS: Glucose,Whole Blood 128 mg/dL (75-99)
[2021-03-23] MEDS: SODIUM CHLORIDE 0.9% 1,000 ML IV SCH (20:15)
[2021-03-23 20:32] LABS: Glucose,Whole Blood 202 mg/dL (75-99)
[2021-03-24] MEDS: HEPARIN SODIUM,PORCINE/PF 5,000 UNIT/0.5 ML SYRINGE SQ SCH ×4 (00:26→23:51)
[2021-03-24] MEDS: INSULIN DETEMIR (LEVEMIR) 100 UNIT/ML SYR SQ SCH ×2 (06:36→20:02)
[2021-03-24] MEDS: PANTOPRAZOLE 40 MG TABLET PO SCH (06:36)
[2021-03-24 06:39] LABS: Glucose,Whole Blood 93 mg/dL (75-99)
[2021-03-24] MEDS: INSULIN ASPART (NovoLOG) 100 UNIT/ML VIAL SQ SCH ×8 (08:20→20:06)
[2021-03-24] MEDS: IPRATROPIUM-ALBUTEROL 3 ML NEB INHALATION SCH ×4 (08:26→21:32)
[2021-03-24] MEDS: ASPIRIN 81 MG PO SCH ×2 (08:46→08:47)
[2021-03-24] MEDS: ATORVASTATIN 80 MG TAB PO SCH (08:46)
[2021-03-24] MEDS: FUROSEMIDE 10 MG/ML 4 ML VIAL IV SCH (08:47)
[2021-03-24] MEDS: lisinopriL 5 MG TAB PO SCH (08:47)
[2021-03-24] MEDS: SPIRONOLACTONE 25 MG TAB PO SCH (08:47)
[2021-03-24] MEDS: TICAGRELOR 90 MG TAB PO SCH ×2 (08:47→20:06)
[2021-03-24] MEDS: METOPROLOL SUCCINATE (ER) 25 MG TAB.ER.24H PO SCH (08:47)
--- NOTE | 2021-03-24 10:39 | P.DS ---
Providers Date of admission: 03/18/21 01:13 Expected date of discharge: 03/24/21 Attending physician: Junior Mccord Consults: 03/18/21 02:16 Consult Physician Urgent Consulting Provider: Victor Hugo Goldstein Consult Reason/Comments: ACS Do you want consulting provider notified?: Yes 03/18/21 04:15 Consult Physician Routine Consulting Provider: [facility] Consult Reason/Comments: Post Interventional patient Do you want consulting provider notified?: Already Contacted 03/18/21 04:20 Consult Physician Routine Consulting Provider: Lyric Connors Consult Reason/Comments: ICU management for DKA Do you want consulting provider notified?: Yes 03/21/21 09:48 Consult Physician Routine Consulting Provider: Danielito Westfall Consult Reason/Comments: altererd mental status Do you want consulting provider notified?: Yes 03/23/21 10:37 Consult Physician Routine Consulting Provider: Roman Beyer Consult Reason/Comments: IP rehab Do you want consulting provider notified?: Yes Primary care physician: [employer] [facility] Course: History of present illness This is a 70-year-old patient of Dr. Mccord being seen in ICU with past medical h istory significant for reactive query asthma, diabetes mellitus, glaucoma, CAD with previous stent, previous smoker. Patient was seen in the emergency room to significantly elevated blood sugars. Patient presented to the ED for evaluations regarding not acting appropriately and not taking her medications. Patient's failure to respond results and will check the patient's [id number]. This arrived to the house she comes patient is not taking any of her medications since March 12 and has not had any contact with her family. Patient was upset about being brought to the emergency room. In complaint of chest pain. Patient was found to have elevated troponin and abnormal EKG. She was taken to the [facility] where she underwent a PCI with Dr. Goldstein and stenting to the proximal LAD. Patient was also found to be in DKA. At this time patient is functioning resting comfortably without any acute distress. Patient is able to answer questions appropriately stating that her insulin pump was not working appropriately and she is not taking any medication since March 12. Patient is unsure why she stopped taking her medications just that she didn't take them. Patient denies any chest pain at this time. Patient is afebrile. Heart rate 75, respirations 20, blood pressure 140/73, oxygen saturation is 97% on room air. 03/19: Patient found resting in bed on 3 south. She is able to recount the episodes from yesterday and the day before. Echocardiogram shows EF of 20%, LV wall function hyperkinetic, LA is moderately dilated 34-39 mL/M2, small pleural effusion. [place] addressed with patient living alone. She may need extra assistance from her brother and [id number]. Phone call to brother will be made this afternoon Dr. Mccord. Patient denies any chest pain or difficulty lukas thing. Blood sugars have been managed. Unsure patient will be able to maintain a insulin pump upon discharge. Patient remains afebrile, pulse rate 73, respirations 18, blood pressure 113/59 pulse oxing 98% on room air. 03/20: Patient denies any chest pain or chest pressure. She has been seen by cardiology this morning and recommendations are to continue current cardiac medications and patient will require LifeVest at the time of discharge to prevent sudden cardiac due to severe cardiomyopathy. sales product manager is making arrangements for LifeVest. Patient has been afebrile, heart rate 86, blood pressure 119/79, pulse ox 94% on room air. Repeat blood work reveals BUN 25 creatinine 0.9. Blood sugars running between 92 and 193. Electrolytes within normal range. WBC 14.8, hemoglobin 11.2, platelet count 370. Plan is for discharge to rehab today once LifeVest is obtained and all arrangements are completed. 03/21: Patient was scheduled for discharge to rehab yesterday however arrangements were not completed for the LifeVest. When the LifeVest rep came in last evening, patient's mental status was off and the rep did not feel comfortable leaving the LifeVest with the patient. Patient had an event last evening for which sound physician attended and Dr. Mccracken was contacted. Patient was found to be in respiratory distress and was placed on a nonrebr eather followed by BiPAP. She was also provided Lasix 40 mg IV push, Geronimo catheter was ordered. Chest x-ray at that time revealed increased interstitial lung markings may represent interstitial edema. Patient was lethargic in the morning and mentation was not at her baseline. She underwent a CAT scan of the brain which revealed cerebral vascular accident. Patient was transferred into the intensive care unit. She was seen by neurology and patient was not a candidate for TPA. Neurology recommended continuing aspirin and polenta and high-dose statin. Carotid Doppler was ordered which revealed no hemodynamically significant stenosis. 03/22: Patient is seen today in the intensive care unit. Patient's mental status is back to baseline, she is awake alert and oriented 3. Chest x-ray this morning reveals correlate for congestive heart failure, interstitial edema, pneumonia not excluded. Limited echocardiogram revealed severe global hypokinesia with EF less than 20%. No thrombus seen. The patient has been seen by speech therapy this morning and has scheduled patient for modified barium swallow. She is currently on 3 L nasal cannula with pulse ox of 97 and 99%. Heart rate in the 80s and 90s, blood pressure 113/58. Blood sugars were quite high overnight and the following adjustments have been made to her insulin Levemir changed twice daily at 15 units and NovoLog 5 units before meals and at bedtime added along with continuing NovoLog scale. Hemoglobin A1c is 14.1. Repeat renal function is BUN 51 and creatinine 1.61. WBC 13.2, hemoglobin 10.9, platelet count 426. Physical therapy and occupational therapy continue to follow the patient. Patient is to have LifeVest fitted today. Discharge plan is to [facility]. 03/23: Patient is in the intensive care unit waiting for [facility] bed. She still has some left-sided neglect. She is working with PT and OT and inpatient rehab has been recommended. Patient is been evaluated by Dr. Beyer from inpatient rehab at [facility]. We are currently waiting for insurance authorization which may take 2-3 days. The patient denies any new complaints. She has been afebrile, heart rate 80, blood pressure 113/65, pulse ox 93% on room air. Repeat blood work reveals WBC 17.5, uric level I.4, platelet count 497. Electrolytes are normal. BUN 16 creatinine 1.64 which is stable from yesterday. Blood this morning was 73. Last evening she was high at 426. She is currently on Levemir 10 units twice daily, NovoLog 3 units with meals and at bedtime and insulin scale. Patient did receive 12 units of insulin last evening at bedtime for the blood sugar 426. Patient underwent modified barium swallow yesterday with recommendations for regular diet and thin liquids with no impairment noted. Anticipate probable discharge by tomorrow. Review Of Systems: Constitutional: No fever, no chills, no night sweats. No weight change. Generalized weakness, reported fatigue no lethargy. No daytime sleepiness. EENT: No headache. No blurred vision or double vision, no loss of vision. No loss of Hearing, no ringing in the ears, no dizziness. No nasal drainage or congestion. No epistaxis. No sore throat. Lungs: No shortness of breath, cough, no sputum production. No wheezing. Cardiovascular: No chest pain, no lower extremity edema. No palpitations. No paroxysmal nocturnal dyspnea. No orthopnea. No lightheadedness or dizziness. No syncopal episodes. Abdominal: No abdominal pain. No nausea, vomiting. No diarrhea. No constipation. No bloody or tarry stools.. No loss of appetite. Genitourinary: No dysuria, increased frequency, urgency. No urinary retention. Musculoskeletal: No myalgias. No muscle weakness, no gait dysfunction, no frequent falls. No back pain. No neck pain. Integumentary: No wounds, no lesions. No rash or pruritus. No unusual bruising. No change in hair or nails. Neurologic: No aphasia. No facial droop. Reported change in mentation, imp roved. No head injury. No headache. No paralysis, improved. No paresthesia. Psychiatric: No depression. No anxiety. No mood swings. Endocrine: No abnormal blood sugars. No weight change. No excessive sweating or thirst. No cold intolerance. Physical examination General Appearance: appears stated age. Neck HEENT: Supple, no lymphadenopathy, no thyroid enlargement, no carotid bruits. Lungs: Clear to auscultation without crackles or wheezes no rhonchi, no deformity. Chest Wall: Chest wall normal expansion with deep inspiration no tenderness and no deformity was found on exam, no costochondral pain or discomfort. Heart: Regular rate and rhythm, S1, S2 normal, no murmur, rub or gallop. Back: Symmetric, no curvature, ROM normal. Abdomen: Soft, non-tender, no rebound or rigidity, no hepatosplenomegaly. Geronimo catheter in place. Extremities: Extremities normal, atraumatic, no cyanosis or edema. Pulses: 2+ and symmetric. Skin: Skin color, texture, tugor normal, no rashes or lesions. Neurologic: Awake alert and oriented 3 Assessment and plan 1. Metabolic encephalopathy secondary to diabetic ketoacidosis. 2. Non-STEMI suspect acute OK earlier this week, post PCI of proximal LAD. Brilinta 90 mg by mouth twice a day, aspirin 81 mg daily, Lipitor 80 mg daily, Toprol-XL 25 mg daily, lisinopril 5 mg daily 3. Diabetic ketoacidosis related to noncompliance, as noted in #1. Continue Levemir increased to 15 units twice daily, NovoLog 5 units before meals and bedtime and NovoLog scale 4. Coronary artery disease: status post heart catheterization with LAD 100% stenosis, diagonal 50-60% stenosis, OM1 250-60% stenosis, RCA 30-40% stenosis status post proximal LAD stent. 5. Diabetes mellitus on insulin pump: Insulin pump is currently not working. 6. Severe cardiomyopathy with EF of less than 20%. Lifevest. 7. 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 8. Mild intellectual disability. 9. Reactive asthma chronic, stable 10 . Glaucoma. 11. Osteoarthritis Discharge plan: [facility] Impression and plan of care have been directed as dictated by the signing physician. Lata Key nurse practitioner acting as scribe for signing physician. Patient Condition at Discharge: Good Plan - Discharge Summary Discharge Rx Participant: No New Discharge Prescriptions: New Insulin Detemir (Levemir) [Levemir] 10 unit SQ HS syr Atorvastatin [Lipitor] 80 mg PO DAILY #30 tab Nitroglycerin Sl Tabs [Nitrostat] 0.4 mg SUBLINGUAL Q5M PRN tab PRN Reason: Chest Pain Metoprolol Succinate (ER) [Toprol XL] 12.5 mg PO DAILY #0 tab.er.24h Ticagrelor [Brilinta] 90 mg PO BID #60 tab Aspirin 81 mg PO DAILY chew INSULIN ASPART (NovoLOG) [NovoLOG (formulary)] 0 unit SQ ACHS vial lisinopriL [Zestril] 5 mg PO DAILY #0 tab Spironolactone [Aldactone] 25 mg PO DAILY #90 tablet Continue INSULIN ASPART (NovoLOG) [NovoLOG (formulary)] See Protocol SQ DIRECTED Albuterol Inhaler [Ventolin Hfa Inhaler] 1 - 2 puff INHALATION RT-Q6H PRN PRN Reason: Shortness Of Breath Brimonidine Tartrate [Alphagan P 0.2% Ophth Soln] 1 drop BOTH EYES BID Dorzolamide 2% [Trusopt 2%] 1 drop BOTH EYES BID Discontinued Atorvastatin Calcium [Lipitor] 10 mg PO DAILY Discharge Medication List Albuterol Inhaler [Ventolin Hfa Inhaler] 1 - 2 puff INHALATION RT-Q6H PRN 03/18/21 [History] Brimonidine Tartrate [Alphagan P 0.2% Ophth Soln] 1 drop BOTH EYES BID 03/18/21 [History] Dorzolamide 2% [Trusopt 2%] 1 drop BOTH EYES BID 03/18/21 [History] INSULIN ASPART (NovoLOG) [NovoLOG (formulary)] See Protocol SQ DIRECTED 03/18/21 [History] Ticagrelor [Brilinta] 90 mg PO BID #60 tab 03/19/21 [Rx] Aspirin 81 mg PO DAILY chew 03/20/21 [Rx] Atorvastatin [Lipitor] 80 mg PO DAILY #30 tab 03/20/21 [Rx] INSULIN ASPART (NovoLOG) [NovoLOG (formulary)] 0 unit SQ ACHS vial 03/20/21 [Rx] Insulin Detemir (Levemir) [Levemir] 10 unit SQ HS syr 03/20/21 [Rx] Metoprolol Succinate (ER) [Toprol XL] 12.5 mg PO DAILY #0 tab.er.24h 03/20/21 [Rx] Nitroglycerin Sl Tabs [Nitrostat] 0.4 mg SUBLINGUAL Q5M PRN tab 03/20/21 [Rx] Spironolactone [Aldactone] 25 mg PO DAILY #90 tablet 03/20/21 [Rx] lisinopriL [Zestril] 5 mg PO DAILY #0 tab 03/20/21 [Rx] Follow up Appointment(s)/Referral(s): Victor Hugo Goldstein DO [STAFF PHYSICIAN] - 1 Week Junior Mccord MD [Primary Care Provider] - 1 Week (at [facility]) Patient Instructions/Handouts: After Radial Heart Catheterization (GEN) Discharge Disposition: TRANSFER TO SNF/ECF
[2021-03-24 11:36] LABS: Glucose,Whole Blood 113 mg/dL (75-99)
--- NOTE | 2021-03-24 12:27 | CT ---
EXAMINATION TYPE: CT brain wo con DATE OF EXAM: 03/24/2021 COMPARISON: 03/21/2021 HISTORY: Follow up to CVA CT DLP: 1099.4 mGycm Automated exposure control for dose reduction was used. FINDINGS: Large area of low attenuation involving the right temporal and occipital lobe is stable compatible fr om previous exam. Stent in the posterior right parietal lobe. No acute hemorrhage or mass effect. No midline shift. There does appear to be intracranial atherosclerotic changes. Orbits symmetric. IMPRESSION: STABLE ISCHEMIC CHANGE INVOLVING THE RIGHT TEMPORAL, OCCIPITAL AND POSTERIOR PARIETAL LOBE UNCHANGED FROM PRIOR EXAM. DEGENERATIVE AND NONSPECIFIC WHITE MATTER CHANGES MOST TYPICAL REMOTE ISCHEMIA.
--- NOTE | 2021-03-24 14:19 | P.PN ---
Subjective Progress Note Date: 03/24/21 Principal diagnosis: Acute temporal occipital infarct 03/19/2021, the patient is on the medical floor. She got transferred out of the intensive care unit. She had a non-STEMI and the patient underwent cardiac catheterization and PCI to LAD. She also had a component of the care that was treated. She was under better control and she is back on long-term insulin for blood sugar control. Echocardiogram showed an ejection fraction of less than 20%. She also has small pleural effusion. BP is under adequate control. No chest pain. She is currently on room air oxygen. No nausea. No vomiting. No diarrhea. No abdominal pain. Potassium level needs to be replaced at the level is at 2.8. BUN is at 25 with a creatinine of 0.7. Anion gap is at 6. Glucose is 116. The patient has been on a combination of aspirin July 20. She is on metoprolol. She is on high-dose statins with Lipitor 80 mg by mouth daily. She is on Levemir insulin 20 units along with a sinus Coverage. On 03/20/2021 patient seen in follow-up on selective care unit, she is resting in bed, she is on room air, she is breathing comfortably, room air pulse ox is 94-99%, hemodynamically she is stable, she is answering questions, however she may still be a bit confused. No fever or chills, lung sounds are clear, no cough or congestion. Her labs have been reviewed, her white count is improving, is down to 14.8, hemoglobin is 11.2, electrolytes are within normal limits, B1 is 25, creatinine 0.9. Patient continues on Rocephin for possibility of urinary tract infection, urine culture is showing gram-negative bacilli and Vilma albicans. On 03/21/2001 patient seen in follow-up on selective care unit, early this morning rapid response team was called to the bedside for a concern of increased shortness of breath. Patient reported not feeling well and having increased shortness of breath. Patient was placed on 100% nonrebreather mask, she was afebrile. Denied any chest pain, no nausea vomiting or cough. Chest x-ray was obtained showing increased interstitial lung markings that could represent interstitial edema, patient was given a dose of IV Lasix 40 mg IV push 1 early in the morning, she has produced around 300 mL of urine. Patient was placed on BiPAP support with pressures of 12 and 6 and FiO2 100%, blood gas was obtained showing pO2 of 194, pCO2 42, and pH of 7.39. FiO2 was cut back to 50%. Patient was also reportedly wheezy, she was given a couple doses of IV Solu-Medrol. During our evaluation patient is very lethargic, she is hardly arousable, she did finally open her eyes to repeated verbal stimulation, however she is not sustaining wakefulness, her blood gas does not explain her level of consciousness, her oxygenation has improved with diuretics, BiPAP support. However her mentation continued to be very altered, and depressed, we ordered stat CT of the brain without contrast which showed evolution of a right temporal occipital infarct, with effacement of the sulci. There was no significant midline shift, no significant mass effect. No hemorrhage, or hydrocephalus, dose of cortical atrophy somewhat more pronounced in the posterior fossa. We ordered stat neurology consultation and patient has been emergently transferred to the intensive care unit. Reevaluated today on 03/22/2021, patient remains in the ICU, seems to be alert and oriented 3. And patient is significantly improved. She does not seem to be in any distress. She is on 3 L nasal cannula with O2 saturation 97%. Speech evaluation is pending. Patient remains on Rocephin for UTI. Remains on GI and DVT prophylaxis. Continues to have slight left-sided facial droop, and left- sided weakness. Chest x-ray did show evidence of interstitial edema. Patient remains on diuretics. BUN is 51 creatinine 1.61. Slightly worsening renal profile since admission. May need to cut down the Lasix to 40 mg IV push daily instead of twice a day On 03/23/2021 patient seen in follow-up in the intensive care unit. She is resting in bed, appears to be a bit lethargic but arousable, she is somewhat slow with her answers, but she knew she was in [place], she knew she was in [facility], she thought it was February, but need to correct year, she thought the president was President Sixto. Appears to be a bit dyspneic with conversation, but she is on room air, in no acute distress, pulse ox is 95-96%, afebrile, blood pressure stable, 122/65 this morning. She is in sinus mechanism, with a controlled rate. Patient has been diuresed, she is in -510 mL fluid balance over the last 24 hours, today's chest x-ray shows a small right- sided pleural effusion, low lung volumes. Patient had a modified barium swallow yesterday, which showed satisfactory initiation and propagation with all modalities. No evidence of penetration or aspiration with any modality, and no significant pharyngeal residue. Remains on antibiotics, urine culture showed E. coli, crit abiotic coverage is E. coli. Neurologically she seems to be stable, no left facial weakness appreciated on today's exam, however her left delivery coordinator is still slightly weak compared the right she is moving all 4 extremities. Patient continues on aspirin and Brilinta and high-dose statins. Carotid Doppler showed no significant stenosis, 2-D echo showed severe global hypokinesis of the left ventricle, and severely impaired EF of less than 20%. Reevaluated today on 03/24/2021, patient is now on regular medical floor, she is on room air, alert oriented, patient is doing well, no major issues over the last 24 hours, hence I am clearing the patient to be discharged home if cleared by other consultants. Including cardiology and neurology on the case. I believe the patient will definitely need some sort of placement. And I believe social sciences lecturer is addressing this issue. CBC is relatively normal except for slight leukocytosis. Renal functioning is abnormal with a BUN of 60 creatinine of 1.64. Electrolytes otherwise are normal. Repeat CT of the brain today showed stable ischemic change involving the right temporal occipital and posterior right total lobe, unchanged from prior examination. Objective - Vital Signs Vital signs: Vital Signs Temp 97.5 F L 03/24/21 12:00 Pulse 77 03/24/21 12:00 Resp 24 03/24/21 12:00 BP 113/73 03/24/21 12:00 Pulse Ox 97 03/24/21 12:00 Intake & Output 03/23/21 03/24/21 03/24/21 18:59 06:59 18:59 Intake Total 970 0 Output Total 885 700 425 Balance 85 -700 -425 Weight 114.5 kg Intake: IV 140 0.9 NaCl- 140 Intake, IV Titration 50 Amount cefTRIAXone 1 gm In 50 Sodium Chloride 0.9% 50 ml @ 100 mls/hr IVPB Q24HR [facility] Rx#:[id number] Oral 780 0 Output: Urine 885 700 425 Other: Voiding Method Indwelling Catheter Indwelling Catheter # Voids 1 # Bowel Movements 1 - Exam Physical Exam revealed a 70-year-old female in no distress, on room air, asymptomatic. Head: Atraumatic, normocephalic. HEENT:[Neck is supple.] [No neck masses.] [No thyromegaly.] [No JVD.] Chest: [Symmetrical chest expansion minimal crackles at the bases.] Cardiac Exam: [Normal S1 and S2, no S3 gallop, no murmur.] Abdomen: [Soft, nontender, no megaly, no rebound, no guarding, normal bowel sounds.] Extremities: [No clubbing, no edema, no cyanosis.] Neurological Exam: Alert and oriented 3. PH seems to be normal. Left-sided neglect remains about the same. Mild left facial asymmetry. Left-sided weakness is noted. Creatinine: Normal mood, affect and normal mental status examination. Skin: No rashes. - Labs CBC & Chem 7: 03/23/21 03:55 03/23/21 03:55 Labs: Abnormal Lab Results - Last 24 Hours (Table) 03/23/21 03/23/21 03/24/21 Range/Units 16:50 19:55 11:35 POC Glucose (mg/dL) 128 H 202 H 113 H (75-99) mg/dL Assessment and Plan Assessment: Impression: Acute temporal occipital infarct Altered mental status secondary to acute CVA. Acute diabetic ketoacidosis Non-ST elevation myocardial infarction Type 2 diabetes, insulin-requiring. Mild intermittent asthma Acute UTI secondary to E. coli. Degenerative joint disease. History of glaucoma. Recommendation: Continue present supportive care measures. guest services associate to evaluate for possible placement. Continue antibiotics. Continue diuretics. However will cut down the dose of Lasix to 20 mg daily. Use BiPAP as needed. Continue to monitor fluid status. monitoring of renal profile. Will sign off for now and see the patient on when necessary basis. Time with Patient: Less than 30
--- NOTE | 2021-03-24 14:54 | P.PN ---
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 Patient underwent cardiac catheterization yesterday with Dr. Goldstein with PCI to the LAD. Patient examined this morning at the bedside. Patient denies chest pain or pressure. She denies shortness of breath. Denies dizziness or lightheadedness. Echocardiogram completed revealed ejection fraction less than 20%, small pleural effusion, mid lateral, mid anteroseptal, apical lateral, apical inferior LV wall hypokinesis. Apical septum LV wall motion is normal. Blood pressure 118/62. Telemetry reveals sinus mechanism. 03/20/2021 Patient examined this morning at the bedside. Patient denies chest pain or pressure. She denies shortness of breath. Vital signs are stable. 03/21/2021 Patient examined this morning at the bedside. Patient went into respiratory distress this morning. She was given IV Lasix and placed on a bipap. She is lethargic at the time of examination. Lifevest was unable to be placed yesterday due to patients mental status. CXR reveals increased interstitial lung markings that may represent interstitial edema. 03/24/2021 Patient has been transferred out of the ICU to the cardiac stepdown unit. Patient denies chest pain or pressure. Denies SOB. Her lifevest has been d elivered and is at the bedside. Vital signs stable. PHYSICAL EXAM: VITAL SIGNS: Reviewed. GENERAL: Well-developed in no acute distress. NECK: Supple. No JVD or thyromegaly LUNGS: Respirations even and unlabored. Lungs diminished bilaterally. HEART: Regular rate and rhythm. S1 and S2 heard. EXTREMITIES: Normal range of motion. No clubbing or cyanosis. Peripheral pulses intact. No lower extremity edema. Right radial cath site with pulse present ASSESSMENT: Non-STEMI, status post PCI to LAD Ischemic cardiomyopathy, EF 20% Subacute ischemic CVA Diabetes mellitus DKA Peripheral neuropathy Acute hypoxic respiratory failure requiring bipap Altered mental status PLAN: Continue current cardiac medications No plans for EMILY from cardiology standpoint Anticipate discharge tomorrow if patient remains stable Further recommendations pending patient course Nurse practitioner note has been reviewed by physician. Signing provider agrees with the documented findings, assessment, and plan of care. Objective - Vital Signs Vital signs: Vital Signs Temp 97.5 F L 03/24/21 12:00 Pulse 77 03/24/21 12:00 Resp 24 03/24/21 12:00 BP 113/73 03/24/21 12:00 Pulse Ox 97 03/24/21 12:00 Intake & Output 03/23/21 03/24/21 03/24/21 18:59 06:59 18:59 Intake Total 970 0 Output Total 885 700 425 Balance 85 -700 -425 Weight 114.5 kg Intake: IV 140 0.9 NaCl- 140 Intake, IV Titration 50 Amount cefTRIAXone 1 gm In 50 Sodium Chloride 0.9% 50 ml @ 100 mls/hr IVPB Q24HR [facility] Rx#:[id number] Oral 780 0 Output: Urine 885 700 425 Other: Voiding Method Indwelling Catheter Indwelling Catheter # Voids 1 # Bowel Movements 1 - Labs CBC & Chem 7: 03/23/21 03:55 03/23/21 03:55 Labs: Abnormal Lab Results - Last 24 Hours (Table) 03/23/21 03/23/21 03/24/21 Range/Units 16:50 19:55 11:35 POC Glucose (mg/dL) 128 H 202 H 113 H (75-99) mg/dL
--- NOTE | 2021-03-24 14:56 | P.PN ---
Subjective Progress Note Date: 03/24/21 History of present illness This is a 70-year-old patient of Dr. Mccord being seen in ICU with past medical history significant for reactive query asthma, diabetes mellitus, glaucoma, CAD with previous stent, previous smoker. Patient was seen in the emergency room to significantly elevated blood sugars. Patient presented to the ED for evaluations regarding not acting appropriately and not taking her medications. Patient's failure to respond results and will check the patient's [id number]. This arrived to the house she comes patient is not taking any of her medications since March 12 and has not had any contact with her family. Patient was upset about being brought to the emergency room. In complaint of chest pain. Patient was found to have elevated troponin and abnormal EKG. She was taken to the [facility] where she underwent a PCI with Dr. Goldstein and stenting t o the proximal LAD. Patient was also found to be in DKA. At this time patient is functioning resting comfortably without any acute distress. Patient is able to answer questions appropriately stating that her insulin pump was not working appropriately and she is not taking any medication since March 12. Patient is unsure why she stopped taking her medications just that she didn't take them. Patient denies any chest pain at this time. Patient is afebrile. Heart rate 75, respirations 20, blood pressure 140/73, oxygen saturation is 97% on room air. 03/19: Patient found resting in bed on 3 [address]. She is able to recount the episodes from yesterday and the day before. Echocardiogram shows EF of 20%, LV wall function hyperkinetic, LA is moderately dilated 34-39 mL/M2, small pleural effusion. Fabi addressed with patient living alone. She may need extra assistance from her brother and [id number]. Phone call to brother will be made this afternoon Dr. Mccord. Patient denies any chest pain or difficulty breathing. Blood sugars have been managed. Unsure patient will be able to ma intain a insulin pump upon discharge. Patient remains afebrile, pulse rate 73, respirations 18, blood pressure 113/59 pulse oxing 98% on room air. 03/20: Patient denies any chest pain or chest pressure. She has been seen by cardiology this morning and recommendations are to continue current cardiac medications and patient will require LifeVest at the time of discharge to prevent sudden cardiac due to severe cardiomyopathy. mine safety manager is making arrangements for LifeVest. Patient has been afebrile, heart rate 86, blood pressure 119/79, pulse ox 94% on room air. Repeat blood work reveals BUN 25 creatinine 0.9. Blood sugars running between 92 and 193. Electrolytes within normal range. WBC 14.8, hemoglobin 11.2, platelet count 370. Plan is for discharge to rehab today once LifeVest is obtained and all arrangements are completed. 03/21: Patient was scheduled for discharge to rehab yesterday however arrangements were not completed for the LifeVest. When the LifeVest rep came in last evening, patient's mental status was off and the rep did not feel c omfortable leaving the LifeVest with the patient. Patient had an event last evening for which sound physician attended and Dr. Mccracken was contacted. Patient was found to be in respiratory distress and was placed on a nonrebreather followed by BiPAP. She was also provided Lasix 40 mg IV push, Geronimo catheter was ordered. Chest x-ray at that time revealed increased interstitial lung markings may represent interstitial edema. Patient was lethargic in the morning and mentation was not at her baseline. She underwent a CAT scan of the brain which revealed cerebral vascular accident. Patient was transferred into the intensive care unit. She was seen by neurology and patient was not a candidate for TPA. Neurology recommended continuing aspirin and polenta and high-dose statin. Carotid Doppler was ordered which revealed no hemodynamically significant stenosis. 03/22: Patient is seen today in the intensive care unit. Patient's mental status is back to baseline, she is awake alert and oriented 3. Chest x-ray this morning reveals correlate for congestive heart failure, interstitial edema, pneumonia not excluded. Limited echocardiogram revealed severe global hypokinesia with EF less than 20%. No thrombus seen. The patient has been seen by speech therapy this morning and has scheduled patient for modified barium swallow. She is currently on 3 L nasal cannula with pulse ox of 97 and 99%. Heart rate in the 80s and 90s, blood pressure 113/58. Blood sugars were quite high overnight and the following adjustments have been made to her insulin Levemir changed twice daily at 15 units and NovoLog 5 units before meals and at bedtime added along with continuing NovoLog scale. Hemoglobin A1c is 14.1. Repeat renal function is BUN 51 and creatinine 1.61. WBC 13.2, hemoglobin 10.9, platelet count 426. Physical therapy and occupational therapy continue to follow the patient. Patient is to have LifeVest fitted today. Discharge plan is to [facility]. 03/23: Patient is in the intensive care unit waiting for MedSur bed. She still has some left-sided neglect. She is working with PT and OT and inpatient rehab has been recommended. Patient is been evaluated by Dr. Beyer from inpatient rehab at [facility]. We are currently waiting for insurance authorization which may take 2-3 days. The patient denies any new complaints. She has been afebrile, heart rate 80, blood pressure 113/65, pulse ox 93% on room air. Repeat blood work reveals WBC 17.5, uric level I.4, platelet count 497. Electrolytes are normal. BUN 16 creatinine 1.64 which is stable from y . Blood this morning was 73. Last evening she was high at 426. She is currently on Levemir 10 units twice daily, NovoLog 3 units with meals and at bedtime and insulin scale. Patient did receive 12 units of insulin last evening at bedtime for the blood sugar 426. Patient underwent modified barium swallow yesterday with recommendations for regular diet and thin liquids with no impairment noted. Anticipate probable discharge by tomorrow. 03/24: Patient denies any new complaints today but seems to be drifting off to sleep. CAT scan of the brain is been ordered which reveals stable ischemic change involving the right temporal, occipital and posterior parietal lobe unchanged from prior exam. Degenerative and nonspecific white matter changes most typical remote ischemia. She has been afebrile, heart rate 84, blood pressure 111/57, pulse ox 95% on room air. Capillary blood glucose running between 93 and 202. Urine culture is positive for Vilma albicans and E. coli pansensitive. Pulmonary medicine has cleared the patient for discharge. Dr. Bains has been deferred to cardiology to assess for any further embolic risk and need for EMILY. Recommendations to continue aspirin, polenta and statin. Patient's Lasix was decreased and we will give an additional 40 mg today. Discharge plan is for [facility] and we are waiting for insurance authorization. Patient is currently completing course of Rocephin for UTI. Review Of Systems: Constitutional: No fever, no chills, no night sweats. No weight change. Generalized weakness, reported fatigue no lethargy. No daytime sleepiness. EENT: No headache. No blurred vision or double vision, no loss of vision. No loss of Hearing, no ringing in the ears, no dizziness. No nasal drainage or congestion. No epistaxis. No sore throat. Lungs: No shortness of breath, cough, no sputum production. No wheezing. Cardiovascular: No chest pain, no lower extremity edema. No palpitations. No paroxysmal nocturnal dyspnea. No orthopnea. No lightheadedness or dizziness. No syncopal episodes. Abdominal: No abdominal pain. No nausea, vomiting. No diarrhea. No constipation. No bloody or tarry stools.. No loss of appetite. Genitourinary: No dysuria, increased frequency, urgency. No urinary retention. Musculoskeletal: No myalgias. No muscle weakness, no gait dysfunction, no frequent falls. No back pain. No neck pain. Integumentary: No wounds, no lesions. No rash or pruritus. No unusual br uising. No change in hair or nails. Neurologic: No aphasia. No facial droop. Reported change in mentation, improved but not back to baseline. No head injury. No headache. No paralysis, improved. No paresthesia. Psychiatric: No depression. No anxiety. No mood swings. Endocrine: No abnormal blood sugars. No weight change. No excessive sweating or thirst. No cold intolerance. Physical examination General Appearance: appears stated age. Neck HEENT: Supple, no lymphadenopathy, no thyroid enlargement, no carotid bruits. Lungs: Clear to auscultation without crackles or wheezes no rhonchi, no deformity. Chest Wall: Chest wall normal expansion with deep inspiration no tenderness and no deformity was found on exam, no costochondral pain or discomfort. Heart: Regular rate and rhythm, S1, S2 normal, no murmur, rub or gallop. Back: Symmetric, no curvature, ROM normal. Abdomen: Soft, non-tender, no rebound or rigidity, no hepatosplenomegaly. Geronimo catheter in place. Extremities: Extremities normal, atraumatic, no cyanosis or edema. Pulses: 2+ and symmetric. Skin: Skin color, texture, tugor normal, no rashes or lesions. Neurologic: Awake alert and oriented 3 Assessment and plan 1. Metabolic encephalopathy secondary to diabetic ketoacidosis. 2. Non-STEMI suspect acute RI earlier this week, post PCI of proximal LAD. Brilinta 90 mg by mouth twice a day, aspirin 81 mg daily, Lipitor 80 mg daily, Toprol-XL 25 mg daily, lisinopril 5 mg daily 3. Diabetic ketoacidosis related to noncompliance, as noted in #1. Continue Levemir increased to 15 units twice daily, NovoLog 5 units before meals and bedtime and NovoLog scale 4. Coronary artery disease: status post heart catheterization with LAD 100% stenosis, diagonal 50-60% stenosis, OM1 250-60% stenosis, RCA 30-40% stenosis status post proximal LAD stent. Atorvastatin 80 mg by mouth daily, 5. Diabetes mellitus on insulin pump: Insulin pump is currently not working. Continue as above. 6. Severe cardiomyopathy with EF of less than 20%. Cardiology is ordered LifeVest. patient is to be fitted for LifeVest today. 7. 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 speech therapy has evaluated and scheduled patient for modified barium swallow. 8. Acute systolic heart failure. Lasix changed 20 mg IV daily and additional dose of 40 mg today, continue metoprolol. 9. Reactive asthma chronic, stable 10 . Glaucoma. Stable 11. Osteoarthritis, Tylenol as needed 12. Mild intellectual disability. 13. DVT prophylaxis. Heparin 5000 units every 8 hours 14. GI prophylaxis: Protonix 40 mg by mouth before meals breakfast CODE STATUS: Full code Discharge plan: [facility] on Saturday Impression and plan of care have been directed as dictated by the signing physician. Lata Key nurse practitioner acting as scribe for signing physici an. Objective - Vital Signs Vital signs: Vital Signs Temp 97.7 F 03/24/21 03:30 Pulse 98 03/24/21 03:30 Resp 18 03/24/21 03:30 BP 108/66 03/24/21 03:30 Pulse Ox 98 03/24/21 03:30 Intake & Output 03/23/21 03/24/21 03/24/21 18:59 06:59 18:59 Intake Total 970 0 Output Total 885 700 Balance 85 -700 0 Weight 114.5 kg Intake: IV 140 0.9 NaCl- 140 Intake, IV Titration 50 Amount cefTRIAXone 1 gm In 50 Sodium Chloride 0.9% 50 ml @ 100 mls/hr IVPB Q24HR [facility] Rx#:[id number] Oral 780 0 Output: Urine 885 700 Other: Voiding Method Indwelling Catheter Indwelling Catheter # Voids 1 # Bowel Movements 1 - Labs CBC & Chem 7: 03/23/21 03:55 03/23/21 03:55 Labs: Abnormal Lab Results - Last 24 Hours (Table) 03/23/21 03/23/21 03/23/21 Range/Units 12:29 16:50 19:55 POC Glucose (mg/dL) 103 H 128 H 202 H (75-99) mg/dL
[2021-03-24] MEDS ORDERED: FUROSEMIDE 10 MG/ML 4 ML VIAL IV STA (15:07)
[2021-03-24 15:45] LABS: Basophils % (A) 0 %; Eosinophils # (A) 0.1 k/uL (0-0.7); Eosinophils % (A) 1 %; HCT 33.6 % (34.0-46.0); Hypochromasia Slight; Lymphocytes # (A) 1.1 k/uL (1.0-4.8); Lymphocytes % (A) 10 %; MCH 26.7 pg (25.0-35.0); MCHC 27.9 g/dL (31.0-37.0); MCV 95.8 fL (80.0-100.0); Mean Platelet Volume 8.2; Monocytes # (A) 0.7 k/uL (0-1.0); Monocytes % (A) 6 %; Neutrophils # (A) 9.4 k/uL (1.3-7.7); Neutrophils % (A) 82 %; Platelet Count 393 k/uL (150-450); RBC 3.51 m/uL (3.80-5.40); RDW 13.4 % (11.5-15.5); WBC 11.5 k/uL (3.8-10.6)
[2021-03-24 16:00] LABS: Calcium 9.2 mg/dL (8.4-10.2); Potassium 4.9 mmol/L (3.5-5.1)
[2021-03-24 16:08] LABS: HGB 9.4 gm/dL (11.4-16.0)
[2021-03-24 16:39] LABS: Glucose,Whole Blood 126 mg/dL (75-99)
[2021-03-24 19:59] LABS: Glucose,Whole Blood 178 mg/dL (75-99)
[2021-03-24] MEDS: SODIUM CHLORIDE 0.9% 1,000 ML IV SCH (20:02)
[2021-03-25] MEDS: INSULIN ASPART (NovoLOG) 100 UNIT/ML VIAL SQ SCH ×8 (06:10→20:35)
[2021-03-25] MEDS: INSULIN DETEMIR (LEVEMIR) 100 UNIT/ML SYR SQ SCH ×2 (06:10→19:58)
[2021-03-25 06:12] LABS: Glucose,Whole Blood 153 mg/dL (75-99)
[2021-03-25] MEDS: PANTOPRAZOLE 40 MG TABLET PO SCH (06:41)
[2021-03-25] MEDS: IPRATROPIUM-ALBUTEROL 3 ML NEB INHALATION SCH ×4 (07:32→19:00)
[2021-03-25] MEDS: ATORVASTATIN 80 MG TAB PO SCH ×2 (08:48→08:53)
[2021-03-25] MEDS: HEPARIN SODIUM,PORCINE/PF 5,000 UNIT/0.5 ML SYRINGE SQ SCH ×3 (08:48→23:43)
[2021-03-25] MEDS: TICAGRELOR 90 MG TAB PO SCH ×3 (08:49→19:59)
[2021-03-25] MEDS: METOPROLOL SUCCINATE (ER) 25 MG TAB.ER.24H PO SCH ×2 (08:49→08:54)
[2021-03-25] MEDS: SPIRONOLACTONE 25 MG TAB PO SCH ×2 (08:49→08:54)
[2021-03-25] MEDS: FUROSEMIDE 10 MG/ML 4 ML VIAL IV SCH (08:49)
[2021-03-25] MEDS: lisinopriL 5 MG TAB PO SCH ×2 (08:49→08:53)
[2021-03-25 11:46] LABS: Glucose,Whole Blood 216 mg/dL (75-99)
--- NOTE | 2021-03-25 12:02 | P.PN ---
Subjective Progress Note Date: 03/25/21 History of present illness This is a 70-year-old patient of Dr. Mccord being seen in ICU with past medical history significant for reactive query asthma, diabetes mellitus, glaucoma, CAD with previous stent, previous smoker. Patient was seen in the emergency room to significantly elevated blood sugars. Patient presented to the ED for evaluations regarding not acting appropriately and not taking her medications. Patient's failure to respond results and will check the patient's [id number]. This arrived to the house she comes patient is not taking any of her medications since March 12 and has not had any contact with her family. Patient was upset about being brought to the emergency room. In complaint of chest pain. Patient was found to have elevated troponin and abnormal EKG. She was taken to the Med Surg R[facility] where she underwent a PCI with Dr. Goldstein and stenting t o the proximal LAD. Patient was also found to be in DKA. At this time patient is functioning resting comfortably without any acute distress. Patient is able to answer questions appropriately stating that her insulin pump was not working appropriately and she is not taking any medication since March 12. Patient is unsure why she stopped taking her medications just that she didn't take them. Patient denies any chest pain at this time. Patient is afebrile. Heart rate 75, respirations 20, blood pressure 140/73, oxygen saturation is 97% on room air. 03/19: Patient found resting in bed on 3 south. She is able to recount the episodes from yesterday and the day before. Echocardiogram shows EF of 20%, LV wall function hyperkinetic, LA is moderately dilated 34-39 mL/M2, small pleural effusion. Fabi addressed with patient living alone. She may need extra assistance from her brother and [id number]. Phone call to brother will be made this afternoon Dr. Mccord. Patient denies any chest pain or difficulty breathing. Blood sugars have been managed. Unsure patient will be able to ma intain a insulin pump upon discharge. Patient remains afebrile, pulse rate 73, respirations 18, blood pressure 113/59 pulse oxing 98% on room air. 03/20: Patient denies any chest pain or chest pressure. She has been seen by cardiology this morning and recommendations are to continue current cardiac medications and patient will require LifeVest at the time of discharge to prevent sudden cardiac due to severe cardiomyopathy. manager assisted living is making arrangements for LifeVest. Patient has been afebrile, heart rate 86, blood pressure 119/79, pulse ox 94% on room air. Repeat blood work reveals BUN 25 creatinine 0.9. Blood sugars running between 92 and 193. Electrolytes within normal range. WBC 14.8, hemoglobin 11.2, platelet count 370. Plan is for discharge to rehab today once LifeVest is obtained and all arrangements are completed. 03/21: Patient was scheduled for discharge to rehab yesterday however arrangements were not completed for the LifeVest. When the LifeVest rep came in last evening, patient's mental status was off and the rep did not feel c omfortable leaving the LifeVest with the patient. Patient had an event last evening for which sound physician attended and Dr. Mccracken was contacted. Patient was found to be in respiratory distress and was placed on a nonrebreather followed by BiPAP. She was also provided Lasix 40 mg IV push, Geronimo catheter was ordered. Chest x-ray at that time revealed increased interstitial lung markings may represent interstitial edema. Patient was lethargic in the morning and mentation was not at her baseline. She underwent a CAT scan of the brain which revealed cerebral vascular accident. Patient was transferred into the intensive care unit. She was seen by neurology and patient was not a candidate for TPA. Neurology recommended continuing aspirin and polenta and high-dose statin. Carotid Doppler was ordered which revealed no hemodynamically significant stenosis. 03/22: Patient is seen today in the intensive care unit. Patient's mental status is back to baseline, she is awake alert and oriented 3. Chest x-ray this morning reveals correlate for congestive heart failure, interstitial edema, pneumonia not excluded. Limited echocardiogram revealed severe global hypokinesia with EF less than 20%. No thrombus seen. The patient has been seen by speech therapy this morning and has scheduled patient for modified barium swallow. She is currently on 3 L nasal cannula with pulse ox of 97 and 99%. Heart rate in the 80s and 90s, blood pressure 113/58. Blood sugars were quite high overnight and the following adjustments have been made to her insulin Levemir changed twice daily at 15 units and NovoLog 5 units before meals and at bedtime added along with continuing NovoLog scale. Hemoglobin A1c is 14.1. Repeat renal function is BUN 51 and creatinine 1.61. WBC 13.2, hemoglobin 10.9, platelet count 426. Physical therapy and occupational therapy continue to follow the patient. Patient is to have LifeVest fitted today. Discharge plan is to [facility]. 03/23: Patient is in the intensive care unit waiting for Medr bed. She still has some left-sided neglect. She is working with PT and OT and inpatient rehab has been recommended. Patient is been evaluated by Dr. Beyer from inpatient rehab at [facility]. We are currently waiting for insurance authorization which may take 2-3 days. The patient denies any new complaints. She has been afebrile, heart rate 80, blood pressure 113/65, pulse ox 93% on room air. Repeat blood work reveals WBC 17.5, uric level I.4, platelet count 497. Electrolytes are normal. BUN 16 creatinine 1.64 which is stable from y ester. Blood this morning was 73. Last evening she was high at 426. She is currently on Levemir 10 units twice daily, NovoLog 3 units with meals and at bedtime and insulin scale. Patient did receive 12 units of insulin last evening at bedtime for the blood sugar 426. Patient underwent modified barium swallow yesterday with recommendations for regular diet and thin liquids with no impairment noted. Anticipate probable discharge by tomorrow. 03/24: Patient denies any new complaints today but seems to be drifting off to sleep. CAT scan of the brain is been ordered which reveals stable ischemic change involving the right temporal, occipital and posterior parietal lobe unchanged from prior exam. Degenerative and nonspecific white matter changes most typical remote ischemia. She has been afebrile, heart rate 84, blood pressure 111/57, pulse ox 95% on room air. Capillary blood glucose running between 93 and 202. Urine culture is positive for Vilma albicans and E. coli pansensitive. Pulmonary medicine has cleared the patient for discharge. Dr. Bains has been deferred to cardiology to assess for any further embolic risk and need for EMILY. Recommendations to continue aspirin, polenta and statin. Patient's Lasix was decreased and we will give an additional 40 mg today. Discharge plan is for [facility] and we are waiting for insurance authorization. Patient is currently completing course of Rocephin for UTI. 03/25: Discussed with cardiology and there is no plan for EMILY. Yesterday patient was evaluated by speech therapy and did not do as well as last evaluation was m kev nothing by mouth. Patient was choking on CYST and sees but was okay to take medications overnight. Patient to have a reassessment done at the bedside today. A shunt has been made nothing by mouth. During evaluation, patient mentation as worse from prior. Patient has been afebrile, heart rate 73, blood pressure 129/60, pulse ox 96% on room air. Blood sugars are running between 253 and 216. Anticipate probable discharge on Saturday. Patient will be reassessed by speech therapy on Saturday as well. Oral aspirin changed to rectal. Ceftriaxone discontinued as patient completed course. Review Of Systems: Constitutional: No fever, no chills, no night sweats. No weight change. Generalized weakness, reported fatigue no lethargy. No daytime sleepiness. EENT: No headache. No blurred vision or double vision, no loss of vision. No loss of Hearing, no ringing in the ears, no dizziness. No nasal drainage or congestion. No epistaxis. No sore throat. Lungs: No shortness of breath, cough, no sputum production. No wheezing. Cardiovascular: No chest pain, no lower extremity edema. No palpitations. No paroxysmal nocturnal dyspnea. No orthopnea. No lightheadedness or dizziness. No syncopal episodes. Abdominal: No abdominal pain. No nausea, vomiting. No diarrhea. No constipation. No bloody or tarry stools.. No loss of appetite. Genitourinary: No dysuria, increased frequency, urgency. No urinary retention. Musculoskeletal: No myalgias. No muscle weakness, no gait dysfunction, no frequent falls. No back pain. No neck pain. Integumentary: No wounds, no lesions. No rash or pruritus. No unusual bruising. No change in hair or nails. Neurologic: No aphasia. No facial droop. Reported change in mentation, worsening, dysphagia. No head injury. No headache. No paralysis, improved. No paresthesia. Psychiatric: No depression. No anxiety. No mood swings. Endocrine: No abnormal blood sugars. No weight change. No excessive sweating or thirst. No cold intolerance. Physical examination General Appearance: appears stated age. Neck HEENT: Supple, no lymphadenopathy, no thyroid enlargement, no carotid bruits. Lungs: Clear to auscultation without crackles or wheezes no rhonchi, no deformity. Chest Wall: Chest wall normal expansion with deep inspiration no tenderness and no deformity was found on exam, no costochondral pain or discomfort. Heart: Regular rate and rhythm, S1, S2 normal, no murmur, rub or gallop. Back: Symmetric, no curvature, ROM normal. Abdomen: Soft, non-tender, no rebound or rigidity, no hepatosplenomegaly. Geronimo catheter in place. Extremities: Extremities normal, atraumatic, no cyanosis or edema. Pulses: 2+ and symmetric. Skin: Skin color, texture, tugor normal, no rashes or lesions. Neurologic: Awake alert and oriented 3 Assessment and plan 1. Metabolic encephalopathy secondary to diabetic ketoacidosis. 2. Non-STEMI suspect acute MD earlier this week, post PCI of proximal LAD. Brilinta 90 mg by mouth twice a day, aspirin 81 mg daily, Lipitor 80 mg daily, Toprol-XL 25 mg daily, lisinopril 5 mg daily 3. Diabetic ketoacidosis related to noncompliance, as noted in #1. Continue Levemir 10 units twice daily, NovoLog 3 units before meals and bedtime and NovoLog scale 4. Coronary artery disease: status post heart catheterization with LAD 100% stenosis, diagonal 50-60% stenosis, OM1 250-60% stenosis, RCA 30-40% stenosis status post proximal LAD stent. Atorvastatin 80 mg by mouth daily, 5. Diabetes mellitus on insulin pump: Insulin pump is currently not working. Continue as above. 6. Severe cardiomyopathy with EF of less than 20%. Cardiology is ordered LifeVest. patient is to be fitted for LifeVest today. 7. Subacute ischemic CVA involving the right BUSINESS SUPPORT COORDINATOR vascular territory. Patient has been made nothing by mouth. Aspirin changed to rectal. 8. Acute systolic heart failure. Lasix changed 20 mg IV daily, continue metopr olol. 9. Reactive asthma chronic, stable 10 . Glaucoma. Stable 11. Osteoarthritis, Tylenol as needed 12. Mild intellectual disability. 13. DVT prophylaxis. Heparin 5000 units every 8 hours 14. GI prophylaxis: Protonix 40 mg by mouth before meals breakfast CODE STATUS: Full code Discharge plan: [facility] on Saturday Impression and plan of care have been directed as dictated by the signing physician. Lata Key nurse practitioner acting as scribe for signing physician. Objective - Vital Signs Vital signs: Vital Signs Temp 96.7 F L 03/25/21 08:00 Pulse 77 03/25/21 08:00 Resp 18 03/25/21 08:00 BP 115/60 03/25/21 08:00 Pulse Ox 93 L 03/25/21 08:00 Intake & Output 03/24/21 03/25/21 03/25/21 18:59 06:59 18:59 Intake Total 360 0 Output Total 1075 550 Balance -715 -550 0 Intake: Oral 360 0 Output: Urine 1075 550 Other: Voiding Method External Catheter External Catheter External Catheter # Voids 1 - Labs CBC & Chem 7: 03/24/21 15:25 03/24/21 15:25 Labs: Abnormal Lab Results - Last 24 Hours (Table) 03/24/21 03/24/21 03/24/21 Range/Units 11:35 15:25 15:25 WBC 11.5 H (3.8-10.6) k/uL RBC 3.51 L (3.80-5.40) m/uL Hgb 9.4 L D (11.4-16.0) gm/dL Hct 33.6 L (34.0-46.0) % MCHC 27.9 L (31.0-37.0) g/dL Neutrophils # 9.4 H (1.3-7.7) k/uL BUN 46 H (7-17) mg/dL Glucose 124 H (74-99) mg/dL POC Glucose (mg/dL) 113 H (75-99) mg/dL 03/24/21 03/24/21 03/25/21 Range/Units 16:38 19:51 06:11 WBC (3.8-10.6) k/uL RBC (3.80-5.40) m/uL Hgb (11.4-16.0) gm/dL Hct (34.0-46.0) % MCHC (31.0-37.0) g/dL Neutrophils # (1.3-7.7) k/uL BUN (7-17) mg/dL Glucose (74-99) mg/dL POC Glucose (mg/dL) 126 H 178 H 153 H (75-99) mg/dL
--- NOTE | 2021-03-25 13:10 | P.PN ---
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 Patient underwent cardiac catheterization yesterday with Dr. Goldstein with PCI to the LAD. Patient examined this morning at the bedside. Patient denies chest pain or pressure. She denies shortness of breath. Denies dizziness or lightheadedness. Echocardiogram completed revealed ejection fraction less than 20%, small pleural effusion, mid lateral, mid anteroseptal, apical lateral, apical inferior LV wall hypokinesis. Apical septum LV wall motion is normal. Blood pressure 118/62. Telemetry reveals sinus mechanism. 03/20/2021 Patient examined this morning at the bedside. Patient denies chest pain or pressure. She denies shortness of breath. Vital signs are stable. 03/21/2021 Patient examined this morning at the bedside. Patient went into respiratory distress this morning. She was given IV Lasix and placed on a bipap. She is lethargic at the time of examination. Lifevest was unable to be placed yesterday due to patients mental status. CXR reveals increased interstitial lung markings that may represent interstitial edema. 03/24/2021 Patient has been transferred out of the ICU to the cardiac stepdown unit. Patient denies chest pain or pressure. Denies SOB. Her lifevest has been d elivered and is at the bedside. Vital signs stable. 03/25/2021 Patient examined this morning at the bedside. Patient denies chest pain or pressure. She denies shortness of breath. Patient is wearing Lifevest. Vital signs are stable. Telemetry reveals sinus mechanism. PHYSICAL EXAM: VITAL SIGNS: Reviewed. GENERAL: Well-developed in no acute distress. NECK: Supple. No JVD or thyromegaly LUNGS: Respirations even and unlabored. Lungs diminished bilaterally. HEART: Regular rate and rhythm. S1 and S2 heard. EXTREMITIES: Normal range of motion. No clubbing or cyanosis. Peripheral pulses intact. No lower extremity edema. Right radial cath site with pulse present ASSESSMENT: Non-STEMI, status post PCI to LAD Ischemic cardiomyopathy, EF 20% Subacute ischemic CVA Diabetes mellitus DKA Peripheral neuropathy Acute hypoxic respiratory failure requiring bipap Altered mental status PLAN: Continue current cardiac medications No plans for EMILY from cardiology standpoint Patient is stable for discharge from a cardiac standpoint No further inpatient recommendations from a cardiac perspective. We will sign off. Please reconsult if needed. Nurse practitioner note has been reviewed by physician. Signing provider agrees with the documented findings, assessment, and plan of care. Objective - Vital Signs Vital signs: Vital Signs Temp 97.5 F L 03/25/21 11:27 Pulse 73 03/25/21 11:27 Resp 16 03/25/21 11:27 BP 129/60 03/25/21 11:27 Pulse Ox 96 03/25/21 11:27 Intake & Output 03/24/21 03/25/21 03/25/21 18:59 06:59 18:59 Intake Total 360 10 Output Total 1075 550 Balance -715 -550 10 Intake: IV 10 0.9 NaCl- 10 Oral 360 0 Output: Urine 1075 550 Other: Voiding Method External Catheter External Catheter External Catheter # Voids 1 - Labs CBC & Chem 7: 03/24/21 15:25 03/24/21 15:25 Labs: Abnormal Lab Results - Last 24 Hours (Table) 03/24/21 03/24/21 03/24/21 Range/Units 15:25 15:25 16:38 WBC 11.5 H (3.8-10.6) k/uL RBC 3.51 L (3.80-5.40) m/uL Hgb 9.4 L D (11.4-16.0) gm/dL Hct 33.6 L (34.0-46.0) % MCHC 27.9 L (31.0-37.0) g/dL Neutrophils # 9.4 H (1.3-7.7) k/uL BUN 46 H (7-17) mg/dL Glucose 124 H (74-99) mg/dL POC Glucose (mg/dL) 126 H (75-99) mg/dL 03/24/21 03/25/21 03/25/21 Range/Units 19:51 06:11 11:44 WBC (3.8-10.6) k/uL RBC (3.80-5.40) m/uL Hgb (11.4-16.0) gm/dL Hct (34.0-46.0) % MCHC (31.0-37.0) g/dL Neutrophils # (1.3-7.7) k/uL BUN (7-17) mg/dL Glucose (74-99) mg/dL POC Glucose (mg/dL) 178 H 153 H 216 H (75-99) mg/dL
[2021-03-25 17:00] LABS: Glucose,Whole Blood 224 mg/dL (75-99)
[2021-03-25] MEDS: SODIUM CHLORIDE 0.9% 1,000 ML IV SCH (17:30)
[2021-03-25 20:32] LABS: Glucose,Whole Blood 205 mg/dL (75-99)
[2021-03-26 03:45] VITALS: TEMP 97.8
[2021-03-26 06:40] LABS: Glucose,Whole Blood 236 mg/dL (75-99)
[2021-03-26] MEDS: INSULIN ASPART (NovoLOG) 100 UNIT/ML VIAL SQ SCH ×2 (06:50)
[2021-03-26] MEDS: PANTOPRAZOLE 40 MG TABLET PO SCH (06:50)
[2021-03-26] MEDS: INSULIN DETEMIR (LEVEMIR) 100 UNIT/ML SYR SQ SCH (06:50)
[2021-03-26] MEDS: IPRATROPIUM-ALBUTEROL 3 ML NEB INHALATION SCH ×2 (07:29→11:14)
[2021-03-26] MEDS ORDERED: DEXTROSE 5% IN WATER 100 ML with AMIODARONE 150 MG IV ONE (07:51)
[2021-03-26] MEDS ORDERED: AMIODARONE 360 MG in DEXTROSE 5% IN WATER 200 ML IV ONE ×2 (07:52)
[2021-03-26] MEDS: ASPIRIN 81 MG PO SCH (08:22)
[2021-03-26] MEDS: HEPARIN SODIUM,PORCINE/PF 5,000 UNIT/0.5 ML SYRINGE SQ SCH (08:29)
[2021-03-26] MEDS: FUROSEMIDE 10 MG/ML 4 ML VIAL IV SCH (08:29)
[2021-03-26] MEDS ORDERED: ASPIRIN 300 MG SUPP RECTAL SCH (09:00)
[2021-03-26 09:38] LABS: Basophils % (A) 0 %; Eosinophils # (A) 0.1 k/uL (0-0.7); Eosinophils % (A) 1 %; HCT 34.2 % (34.0-46.0); HGB 11.3 gm/dL (11.4-16.0); Lymphocytes # (A) 0.8 k/uL (1.0-4.8); Lymphocytes % (A) 9 %; MCH 30.7 pg (25.0-35.0); MCHC 33.1 g/dL (31.0-37.0); MCV 92.7 fL (80.0-100.0); Mean Platelet Volume 8.5; Monocytes # (A) 0.7 k/uL (0-1.0); Monocytes % (A) 7 %; Neutrophils # (A) 7.7 k/uL (1.3-7.7); Neutrophils % (A) 82 %; Platelet Count 432 k/uL (150-450); RBC 3.69 m/uL (3.80-5.40); RDW 12.7 % (11.5-15.5); WBC 9.4 k/uL (3.8-10.6)
[2021-03-26 09:47] LABS: Calcium 9.2 mg/dL (8.4-10.2); Magnesium 1.8 mg/dL (1.6-2.3); Potassium 4.6 mmol/L (3.5-5.1)
--- NOTE | 2021-03-26 10:24 | P.PN ---
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 Patient underwent cardiac catheterization yesterday with Dr. Goldstein with PCI to the LAD. Patient examined this morning at the bedside. Patient denies chest pain or pressure. She denies shortness of breath. Denies dizziness or lightheadedness. Echocardiogram completed revealed ejection fraction less than 20%, small pleural effusion, mid lateral, mid anteroseptal, apical lateral, apical inferior LV wall hypokinesis. Apical septum LV wall motion is normal. Blood pressure 118/62. Telemetry reveals sinus mechanism. 03/20/2021 Patient examined this morning at the bedside. Patient denies chest pain or pressure. She denies shortness of breath. Vital signs are stable. 03/21/2021 Patient examined this morning at the bedside. Patient went into respiratory distress this morning. She was given IV Lasix and placed on a bipap. She is lethargic at the time of examination. Lifevest was unable to be placed yesterday due to patients mental status. CXR reveals increased interstitial lung markings that may represent interstitial edema. 03/24/2021 Patient has been transferred out of the ICU to the cardiac stepdown unit. Patient denies chest pain or pressure. Denies SOB. Her lifevest has been d elivered and is at the bedside. Vital signs stable. 03/25/2021 Patient examined this morning at the bedside. Patient denies chest pain or pressure. She denies shortness of breath. Patient is wearing Lifevest. Vital signs are stable. Telemetry reveals sinus mechanism. 03/26/2021 Patient examined this morning at the bedside. Patient went into Vfib this morning and was defibrillated by her lifevest. Patient is currently maintaining sinus mechanism. Patient is currently nothing by mouth and has been unable to receive her cardiac medications. Her aspirin has been changed to rectal dosing. Blood pressure 122/61. She is on 3 L nasal cannula with oxygen saturations greater then 92%. She is afebrile. PHYSICAL EXAM: VITAL SIGNS: Reviewed. GENERAL: Well-developed in no acute distress. NECK: Supple. No JVD or thyromegaly LUNGS: Respirations even and unlabored. Lungs diminished bilaterally. HEART: Regular rate and rhythm. S1 and S2 heard. EXTREMITIES: Normal range of motion. No clubbing or cyanosis. Peripheral pulses intact. No lower extremity edema. Right radial cath site with pulse present ASSESSMENT: Non-STEMI, status post PCI to LAD Ischemic cardiomyopathy, EF 20% Subacute ischemic CVA V. fib, status post defibrillation Diabetes mellitus DKA Peripheral neuropathy Acute hypoxic respiratory failure requiring bipap Altered mental status PLAN: Patient currently NPO and unable to take oral medications Continue rectal aspirin Patient will require NG tube placement if she is unable to take oral medications as she recently had stent placed. Notified internal medicine and will defer final decision of NG tube placement to their service. Begin IV amio bolus and infusion Further recommendations pending patient course Nurse practitioner note has been reviewed by physician. Signing provider agrees with the documented findings, assessment, and plan of care. Objective - Vital Signs Vital signs: Vital Signs Temp 97.8 F 03/26/21 03:43 Pulse 82 03/26/21 08:28 Resp 19 03/26/21 08:28 BP 122/61 03/26/21 08:28 Pulse Ox 94 L 03/26/21 08:28 Intake & Output 03/25/21 03/26/21 03/26/21 18:59 06:59 18:59 Intake Total 10 0 Output Total 300 Balance -290 0 Weight 86 kg Intake: IV 10 0.9 NaCl- 10 Oral 0 0 Output: Urine 300 Other: Voiding Method External Catheter External Catheter # Voids 2 # Bowel Movements 1 - Labs CBC & Chem 7: 03/26/21 09:01 03/26/21 09:01 Labs: Abnormal Lab Results - Last 24 Hours (Table) 03/25/21 03/25/21 03/25/21 Range/Units 11:44 16:59 19:42 RBC (3.80-5.40) m/uL Hgb (11.4-16.0) gm/dL Lymphocytes # (1.0-4.8) k/uL BUN (7-17) mg/dL Creatinine (0.52-1.04) mg/dL Glucose (74-99) mg/dL POC Glucose (mg/dL) 216 H 224 H 205 H (75-99) mg/dL 03/26/21 03/26/21 03/26/21 Range/Units 06:08 09:01 09:01 RBC 3.69 L (3.80-5.40) m/uL Hgb 11.3 L (11.4-16.0) gm/dL Lymphocytes # 0.8 L (1.0-4.8) k/uL BUN 39 H (7-17) mg/dL Creatinine 1.22 H (0.52-1.04) mg/dL Glucose 280 H (74-99) mg/dL POC Glucose (mg/dL) 236 H (75-99) mg/dL
--- NOTE | 2021-03-26 10:44 | P.PN ---
Subjective Progress Note Date: 03/24/21 Patient was seen for a follow-up. Patient is sitting in the recliner. Patient wants to go home. Patient had some issues with swallowing, was coughing. Patient is nothing by mouth. It was felt to be related to fluid overload. No other concerns. Objective - Vital Signs Vital signs: Vital Signs Temp 97.8 F 03/26/21 03:43 Pulse 82 03/26/21 08:28 Resp 19 03/26/21 08:28 BP 122/61 03/26/21 08:28 Pulse Ox 94 L 03/26/21 08:28 Intake & Output 03/25/21 03/26/21 03/26/21 18:59 06:59 18:59 Intake Total 10 0 Output Total 300 Balance -290 0 Weight 86 kg Intake: IV 10 0.9 NaCl- 10 Oral 0 0 Output: Urine 300 Other: Voiding Method External Catheter External Catheter # Voids 2 # Bowel Movements 1 - Exam On examination patient is an elderly female, in no distress. She is very pleasant. Speech and language functions are normal. On cranial examination patient has complete left homonymous hemianopia, with severe neglect on the left. She has mild left facial asymmetry. Other cranial nerves are normal. On muscle strength testing there is mild left pronator drift and the strength appears slightly weak in the left deltoid and biceps otherwise is normal bilaterally. No ataxia for [id number] testing. Sensory to touch is equal with no neglect. Tone and bulk of muscles normal - Labs CBC & Chem 7: 03/26/21 09:01 03/26/21 09:01 Labs: Abnormal Lab Results - Last 24 Hours (Table) 03/25/21 03/25/21 03/25/21 Range/Units 11:44 16:59 19:42 RBC (3.80-5.40) m/uL Hgb (11.4-16.0) gm/dL Lymphocytes # (1.0-4.8) k/uL BUN (7-17) mg/dL Creatinine (0.52-1.04) mg/dL Glucose (74-99) mg/dL POC Glucose (mg/dL) 216 H 224 H 205 H (75-99) mg/dL 03/26/21 03/26/21 03/26/21 Range/Units 06:08 09:01 09:01 RBC 3.69 L (3.80-5.40) m/uL Hgb 11.3 L (11.4-16.0) gm/dL Lymphocytes # 0.8 L (1.0-4.8) k/uL BUN 39 H (7-17) mg/dL Creatinine 1.22 H (0.52-1.04) mg/dL Glucose 280 H (74-99) mg/dL POC Glucose (mg/dL) 236 H (75-99) mg/dL Assessment and Plan Assessment: * Sub-acute ischemic CVA involving right NOZZLE TENDER vascular territory, with complete left homonymous hemianopia. * Toxic metabolic encephalopathy, multifactorial, resolved. * Status post DKA * Severe CHF with EF <20% * Acute CT, status post stent to the LAD * Diabetes * History of mild intellectual disability Plan: * Continue aspirin and Brilinta 90 mg twice a day and high-dose statins. * Patient had a repeat computed tomography scan of head performed today, which was stable. No acute process. Stable ischemic change involving the right temporal, occipital and posterior parietal lobe, unchanged from prior exam. * Carotid Doppler revealed no significant stenosis. Antegrade flow in both vertebral arteries. * 2-D echo revealed severe global hypokinesis of left ventricle. Overall left ventricular systolic function is severely impaired with an EF <20%. Lumason used revealed no thrombus. Cardiology evaluated the patient, and have no plans for EMILY from cardiology standpoint. Cardiology on the case. * Patient has a life vest for severe CHF. * Other medical management as per IM. * Optimize control of diabetes * Hemoglobin A1c 14.1 consistent with poorly controlled diabetes. Optimize control of diabetes to target A1c <7.0. * Fasting lipid panel showed cholesterol 138, LDL 73, HDL 36, triglycerides 145. Continue Lipitor 80 mg * Neurologically clear. We will sign off. Please reconsult neurology if any other concerns.
[2021-03-26] MEDS ORDERED: MAGNESIUM SULFATE-D5W PMX 1 GM in DEXTROSE/WATER 1 100ML.BAG IVPB ONE (10:58)
[2021-03-26 11:01] LABS: Glucose,Whole Blood 262 mg/dL (75-99)
[2021-03-26] MEDS ORDERED: propofoL 100 ML IV ONE (11:24)
[2021-03-26] MEDS ORDERED: MEXILETINE 150 MG CAP PO SCH (11:30)
[2021-03-26 11:32] LABS: Glucose,Whole Blood 304 mg/dL (75-99)
[2021-03-26 11:37] VITALS: RESP 15
[2021-03-26] MEDS ORDERED: LIDOCAINE-D5W PMX 2G/250ML 2,000 MG in DEXTROSE/WATER 1 250ML.BAG IV SCH (11:45)
[2021-03-26] MEDS: TICAGRELOR 90 MG TAB PO SCH (12:10)
[2021-03-26] MEDS: lisinopriL 5 MG TAB PO SCH (12:10)
[2021-03-26] MEDS: SPIRONOLACTONE 25 MG TAB PO SCH (12:10)
[2021-03-26] MEDS: METOPROLOL SUCCINATE (ER) 25 MG TAB.ER.24H PO SCH (12:10)
[2021-03-26] MEDS: ATORVASTATIN 80 MG TAB PO SCH (12:10)
[2021-03-26 12:13] VITALS: BP 96/54; PULSE 58
[2021-03-26] MEDS ORDERED: MORPHINE SULFATE (100 MG/2 ML) 100 MG in SODIUM CHLORIDE 0.9% 100 ML IV SCH (12:15)
[2021-03-26] MEDS ORDERED: SCOPOLAMINE 1.5MG/72HR PATCH TRANSDERM SCH (12:15)
--- NOTE | 2021-03-26 12:25 | P.EN ---
A- team: Indication: V-fib Patient had gone into V fib with a life vest on and had shock delivered X 3. Patient seen and examined at bedside. Lethargic and moaning at bedside. She was able to follow commands. She again went into V fib and we shocked at 200 J and she continued to have v- fib and was shocked at 300J with conversion to normal sinus rhythm. Amio 150 bolus and then continue gtt. She was then unresponsive without respirations and rescue breaths were administered. DRIVEWAY SEALER was called for intubation. Vital signs reviewed General: ill, pale, Head: atraumatic, normocephalic, symmetric Eyes: PERRL, EOMI, no lid lag, anicteric sclera Mouth: no lip lesion, mucus membranes moist Cardiovascular: S1S2 reg, no murmur, Lungs: diminished respirations Ext: no gross muscle atrophy, no edema, no contractures Neuro: CN II-XI grossly intact, no focal neuro deficits Psych: lethargic with decreased responsiveness Assessment/Plan: V. fib arrest Altered mentation Dr. Torres arrived to bedside as DRIVEWAY SEALER preparing to intubate patient, He agrees with intubation and suggest lido gtt until oral mediations Dr. Dorsey's ground notified for discussion with family Manuel and Dr. Mccracken notified over the phone. A Total of 32 minutes of critical care time was spent on the complex care of this patient.
[2021-03-26] MEDS ORDERED: INSULIN ASPART (NovoLOG) 100 UNIT/ML VIAL SQ SCH (12:30)
[2021-03-26] MEDS ORDERED: AMIODARONE 450 MG in DEXTROSE 5% IN WATER 250 ML IV SCH ×2 (14:00)
[2021-03-26] MEDS ORDERED: INSULIN DETEMIR (LEVEMIR) 100 UNIT/ML SYR SQ SCH (21:00)
--- NOTE | 2021-03-28 08:05 | P.DS ---
Providers Date of admission: 03/18/21 01:13 Expected date of discharge: 03/26/21 Attending physician: Junior Mccord Consults: 03/18/21 02:16 Consult Physician Urgent Consulting Provider: Victor Hugo Goldstein Consult Reason/Comments: ACS Do you want consulting provider notified?: Yes 03/18/21 04:15 Consult Physician Routine Consulting Provider: [facility] Consult Reason/Comments: Post Interventional patient Do you want consulting provider notified?: Already Contacted 03/18/21 04:20 Consult Physician Routine Consulting Provider: Lyric Connors Consult Reason/Comments: ICU management for DKA Do you want consulting provider notified?: Yes 03/21/21 09:48 Consult Physician Routine Consulting Provider: Danielito Westfall Consult Reason/Comments: altererd mental status Do you want consulting provider notified?: Yes 03/23/21 10:37 Consult Physician Routine Consulting Provider: Roman Beyer Consult Reason/Comments: IP rehab Do you want consulting provider notified?: Yes 03/26/21 10:58 Consult Physician Routine Consulting Provider: Sher Mccracken Consult Reason/Comments: ICU managment Do you want consulting provider notified?: Yes Primary care physician: [facility] Course: History of present illness This is a 70-year-old patient of Dr. Mccord being seen in ICU with past medical history significant for reactive query asthma, diabetes mellitus, glaucoma, CAD with previous stent, previous smoker. Patient was seen in the emergency room to significantly elevated blood sugars. Patient presented to the ED for evalua tions regarding not acting appropriately and not taking her medications. Patient's failure to respond results and will check the patient's [id number]. This arrived to the house she comes patient is not taking any of her medications since March 12 and has not had any contact with her family. Patient was upset about being brought to the emergency room. In complaint of chest pain. Patient was found to have elevated troponin and abnormal EKG. She was taken to the [facility] where she underwent a PCI with Dr. Goldstein and stenting to the proximal LAD. Patient was also found to be in DKA. At this time patient is functioning resting comfortably without any acute distress. Patient is able to answer questions appropriately stating that her insulin pump was not working appropriately and she is not taking any medication since March 12. Patient is unsure why she stopped taking her medications just that she didn't take them. Patient denies any chest pain at this time. Patient is afebrile. Heart rate 75, respirations 20, blood pressure 140/73, oxygen saturation is 97% on room air. 03/19: Patient found resting in bed on 3 south. She is able to recount the episodes from yesterday and the day before. Echocardiogram shows EF of 20%, LV wall function hyperkinetic, LA is moderately dilated 34-39 mL/M2, small pleural effusion. [place] addressed with patient living alone. She may need extra assistance from her brother and [id number]. Phone call to brother will be made this afternoon Dr. Mccord. Patient denies any chest pain or difficulty breathing. Blood sugars have been managed. Unsure patient will be able to maintain a insulin pump upon discharge. Patient remains afebrile, pulse rate 73, respirations 18, blood pressure 113/59 pulse oxing 98% on room air. 03/20: Patient denies any chest pain or chest pressure. She has been seen by cardiology this morning and recommendations are to continue current cardiac medications and patient will require LifeVest at the time of discharge to prevent sudden cardiac due to severe cardiomyopathy. accounting manager controller is making arrangements for LifeVest. Patient has been afebrile, heart rate 86, blood pressure 119/79, pulse ox 94% on room air. Repeat blood work reveals BUN 25 creatinine 0.9. Blood sugars running between 92 and 193. Electrolytes within normal range. WBC 14.8, hemoglobin 11.2, platelet count 370. Plan is for discharge to rehab today once LifeVest is obtained and all arrangements are completed. 03/21: Patient was scheduled for discharge to rehab yesterday however arrangements were not completed for the LifeVest. When the LifeVest rep came in last evening, patient's mental status was off and the rep did not feel comfortable leaving the LifeVest with the patient. Patient had an event last evening for which sound physician attended and Dr. Mccracken was contacted. Patient was found to be in respiratory distress and was placed on a nonrebreather followed by BiPAP. She was also provided Lasix 40 mg IV push, Geronimo catheter was ordered. Chest x-ray at that time revealed increased interstitial lung markings may represent interstitial edema. Patient was lethargic in the morning and mentation was not at her baseline. She underwent a CAT scan of the brain which revealed cerebral vascular accident. Patient was transferred into the intensive care unit. She was seen by neurology and patient was not a candidate for TPA. Neurology recommended continuing aspirin and polenta and high-dose statin. Carotid Doppler was ordered which revealed no hemodynamically significant stenosis. 03/22: Patient is seen today in the intensive care unit. Patient's mental status is back to baseline, she is awake alert and oriented 3. Chest x-ray this morning reveals correlate for congestive heart failure, interstitial edema, pneumonia not excluded. Limited echocardiogram revealed severe global hypokinesia with EF less than 20%. No thrombus seen. The patient has been seen by speech therapy this morning and has scheduled patient for modified barium swallow. She is currently on 3 L nasal cannula with pulse ox of 97 and 99%. Heart rate in the 80s and 90s, blood pressure 113/58. Blood sugars were quite high overnight and the following adjustments have been made to her insulin Levemir changed twice daily at 15 units and NovoLog 5 units before meals and at bedtime added along with continuing NovoLog scale. Hemoglobin A1c is 14.1. Repeat renal function is BUN 51 and creatinine 1.61. WBC 13.2, hemoglobin 10.9, platelet count 426. Physical therapy and occupational therapy continue to follow the patient. Patient is to have LifeVest fitted today. Discharge plan is to [facility]. 03/23: Patient is in the intensive care unit waiting for [facility] bed. She still has some left-sided neglect. She is working with PT and OT and inpatient rehab has been recommended. Patient is been evaluated by Dr. Beyer from inpatient rehab at [facility]. We are currently waiting for insurance authorization which may take 2-3 days. The patient denies any new complaints. She has been afebrile, heart rate 80, blood pressure 113/65, pulse ox 93% on room air. Repeat blood work reveals WBC 17.5, uric level I.4, platelet count 497. Electrolytes are normal. BUN 16 creatinine 1.64 which is stable from yesterday. Blood this morning was 73. Last evening she was high at 426. She is currently on Levemir 10 units twice daily, NovoLog 3 units with meals and at bedtime and insulin scale. Patient did receive 12 units of insulin last evening at bedtime for the blood sugar 426. Patient underwent modified barium swallow yesterday with recommendations for regular diet and thin liquids with no impairment noted. Anticipate probable discharge by tomorrow. 03/24: Patient denies any new complaints today but seems to be drifting off to sleep. CAT scan of the brain is been ordered which reveals stable ischemic change involving the right temporal, occipital and posterior parietal lobe unchanged from prior exam. Degenerative and nonspecific white matter changes most typical remote ischemia. She has been afebrile, heart rate 84, blood pressure 111/57, pulse ox 95% on room air. Capillary blood glucose running between 93 and 202. Urine culture is positive for Vilma albicans and E. coli pansensitive. Pulmonary medicine has cleared the patient for discharge. Dr. Bains has been deferred to cardiology to assess for any further embolic risk and need for EMILY. Recommendations to continue aspirin, polenta and statin. Patient's Lasix was decreased and we will give an additional 40 mg today. Discharge plan is for [facility] and we are waiting for insurance authorization. Patient is currently completing course of Rocephin for UTI. 03/25: Discussed with cardiology and there is no plan for EMILY. Yesterday patient was evaluated by speech therapy and did not do as well as last evaluation was made nothing by mouth. Patient was choking on CYST and sees but was okay to take medications overnight. Patient to have a reassessment done at the bedside today. A shunt has been made nothing by mouth. During evaluation, patient mentation as worse from prior. Patient has been afebrile, heart rate 73, blood pressure 129/60, pulse ox 96% on room air. Blood sugars are running between 253 and 216. Anticipate probable discharge on Saturday. Patient will be reassessed by speech therapy on Saturday as well. Oral aspirin changed to rectal. Ceftriaxone discontinued as patient completed course. 03/26: Patient continued to be nothing by mouth status yesterday was not able to take any of her medications due to mental status changes. Her mental status continued to worsen. This morning her LifeVest shocked her for ventricular fibrillation. Later in the morning she had a second episode of ventricular fibrillation and she was ordered transferred into the intensive care unit and was subsequently intubated. Subsequently she had additional episodes of vent ricular fibrillation. Patient's family members which include her [id number] and her nephew which is the power of criminal attorney were present. Reviewed patient's living will papers with the family and it was determined that patient would not wish to be intubated and on mechanical ventilation. At that point, it was determined the patient would be extubated and once tube is removed, family would like to see her before she passes. Patient on March 26. Please see nursing documentation for details. Assessment and plan 1. Metabolic encephalopathy secondary to diabetic ketoacidosis. 2. Non-STEMI suspect acute [place] earlier this week, post PCI of proximal LAD. 3. Diabetic ketoacidosis related to noncompliance, as noted in #1. 4. Coronary artery disease: status post heart catheterization with LAD 100% stenosis, diagonal 50-60% stenosis, OM1 50-60% stenosis, RCA 30-40% stenosis status post proximal LAD stent. 5. Diabetes mellitus on insulin pump: Insulin pump is currently not working. 6. Severe cardiomyopathy with EF of less than 20%. 7. Subacute ischemic CVA involving the right FOOD SAFETY DIRECTOR vascular territory. 8. Acute systolic heart failure. 9. Reactive asthma chronic, stable 10. Glaucoma. Stable 11. Osteoarthritis 12. Mild intellectual disability. 13. Impression and plan of care have been directed as dictated by the signing physic ian. Lata Key nurse practitioner acting as scribe for signing physician. Patient Condition at Discharge: Undetermined Plan - Discharge Summary Discharge Rx Participant: No New Discharge Prescriptions: New Insulin Detemir (Levemir) [Levemir] 10 unit SQ HS syr Atorvastatin [Lipitor] 80 mg PO DAILY #30 tab Nitroglycerin Sl Tabs [Nitrostat] 0.4 mg SUBLINGUAL Q5M PRN tab PRN Reason: Chest Pain Metoprolol Succinate (ER) [Toprol XL] 12.5 mg PO DAILY #0 tab.er.24h Ticagrelor [Brilinta] 90 mg PO BID #60 tab Aspirin 81 mg PO DAILY chew INSULIN ASPART (NovoLOG) [NovoLOG (formulary)] 0 unit SQ ACHS vial lisinopriL [Zestril] 5 mg PO DAILY #0 tab Spironolactone [Aldactone] 25 mg PO DAILY #90 tablet Continue INSULIN ASPART (NovoLOG) [NovoLOG (formulary)] See Protocol SQ DIRECTED Albuterol Inhaler [Ventolin Hfa Inhaler] 1 - 2 puff INHALATION RT-Q6H PRN PRN Reason: Shortness Of Breath Brimonidine Tartrate [Alphagan P 0.2% Ophth Soln] 1 drop BOTH EYES BID Dorzolamide 2% [Trusopt 2%] 1 drop BOTH EYES BID Discontinued Atorvastatin Calcium [Lipitor] 10 mg PO DAILY Discharge Medication List Albuterol Inhaler [Ventolin Hfa Inhaler] 1 - 2 puff INHALATION RT-Q6H PRN [History] Brimonidine Tartrate [Alphagan P 0.2% Ophth Soln] 1 drop BOTH EYES BID 03/18/21 [History] Dorzolamide 2% [Trusopt 2%] 1 drop BOTH EYES BID 03/18/21 [History] INSULIN ASPART (NovoLOG) [NovoLOG (formulary)] See Protocol SQ DIRECTED 03/18/21 [History] Ticagrelor [Brilinta] 90 mg PO BID #60 tab 03/19/21 [Rx] Aspirin 81 mg PO DAILY chew 03/20/21 [Rx] Atorvastatin [Lipitor] 80 mg PO DAILY #30 tab 03/20/21 [Rx] INSULIN ASPART (NovoLOG) [NovoLOG (formulary)] 0 unit SQ ACHS vial 03/20/21 [Rx] Insulin Detemir (Levemir) [Levemir] 10 unit SQ HS syr 03/20/21 [Rx] Metoprolol Succinate (ER) [Toprol XL] 12.5 mg PO DAILY #0 tab.er.24h 03/20/21 [Rx] Nitroglycerin Sl Tabs [Nitrostat] 0.4 mg SUBLINGUAL Q5M PRN tab 03/20/21 [Rx] Spironolactone [Aldactone] 25 mg PO DAILY #90 tablet 03/20/21 [Rx] lisinopriL [Zestril] 5 mg PO DAILY #0 tab 03/20/21 [Rx] Follow up Appointment(s)/Referral(s): Victor Hugo Goldstein DO [STAFF PHYSICIAN] - 1 Week Junior Mccord MD [Primary Care Provider] - 1 Week ([address] [facility]) Patient Instructions/Handouts: After Radial Heart Catheterization (GEN) Discharge Disposition: - Preliminary Cause of Preliminary Cause of : Severe cardiomyopathy with EF of less than 20%
== END 2021-03-26 14:40 | disposition expired | DRG 246 ==
LOC: EC 23:57 → 3SCARD 03-18 01:13 → UNDOADMIN 03-18 01:40 → 2SICU 03-18 04:02 → 3SCARD 03-18 17:25 → 2SICU 03-21 12:54 → 3SCARD 03-23 17:35 → 2SICU 03-26 11:12
PROVIDERS: ADMIT Internal Medicine Geriatric Medicine; ATTEND Internal Medicine Geriatric Medicine
PROC: 4A023N7 Measurement of Cardiac Sampling and Pressure, Left Heart, Percutaneous Approach (ICD-10-PCS; principal; 2021-03-18 02:42)
PROC: B2111ZZ Fluoroscopy of Multiple Coronary Arteries using Low Osmolar Contrast (ICD-10-PCS; principal; 2021-03-18 02:42)
PROC: 027034Z Dilation of Coronary Artery, One Artery with Drug-eluting Intraluminal Device, Percutaneous Approach (ICD-10-PCS; principal; 2021-03-18 02:42)
PROC: 5A09457 Assistance with Respiratory Ventilation, 24-96 Consecutive Hours, Continuous Positive Airway Pressure (ICD-10-PCS; 2021-03-21)
PROC: 5A12012 Performance of Cardiac Output, Single, Manual (ICD-10-PCS; 2021-03-26)
PROC: 5A1935Z Respiratory Ventilation, Less than 24 Consecutive Hours (ICD-10-PCS; 2021-03-26)
PROC: 0BH17EZ Insertion of Endotracheal Airway into Trachea, Via Natural or Artificial Opening (ICD-10-PCS; 2021-03-26)
PROC: 0D9670Z Drainage of Stomach with Drainage Device, Via Natural or Artificial Opening (ICD-10-PCS; 2021-03-26)
DX: I21.4 Non-ST elevation (NSTEMI) myocardial infarction (principal); E11.10 Type 2 diabetes mellitus with ketoacidosis without coma; I63.531 Cerebral infarction due to unspecified occlusion or stenosis of right posterior cerebral artery; J96.01 Acute respiratory failure with hypoxia; I50.23 Acute on chronic systolic (congestive) heart failure; G92 Toxic encephalopathy; N17.9 Acute kidney failure, unspecified; R41.4 Neurologic neglect syndrome; G81.94 Hemiplegia, unspecified affecting left nondominant side; N39.0 Urinary tract infection, site not specified; T85.614A Breakdown (mechanical) of insulin pump, initial encounter; H53.462 Homonymous bilateral field defects, left side; Z79.4 Long term (current) use of insulin; I49.01 Ventricular fibrillation; E11.39 Type 2 diabetes mellitus with other diabetic ophthalmic complication; E11.42 Type 2 diabetes mellitus with diabetic polyneuropathy; Z66 Do not resuscitate; B96.20 Unspecified Escherichia coli [E. coli] as the cause of diseases classified elsewhere; R29.705 NIHSS score 5; I25.10 Atherosclerotic heart disease of native coronary artery without angina pectoris; J45.20 Mild intermittent asthma, uncomplicated; I25.5 Ischemic cardiomyopathy; I44.4 Left anterior fascicular block; I25.2 Old myocardial infarction; H40.9 Unspecified glaucoma; H35.30 Unspecified macular degeneration; H42 Glaucoma in diseases classified elsewhere; F70 Mild intellectual disabilities; B91 Sequelae of poliomyelitis; T38.3X6A Underdosing of insulin and oral hypoglycemic [antidiabetic] drugs, initial encounter; Z91.138 Patient's unintentional underdosing of medication regimen for other reason; R26.9 Unspecified abnormalities of gait and mobility; M19.90 Unspecified osteoarthritis, unspecified site; Z79.899 Other long term (current) drug therapy; Z60.2 Problems related to living alone; Z95.5 Presence of coronary angioplasty implant and graft; Z87.891 Personal history of nicotine dependence; Z98.51 Tubal ligation status; Z96.641 Presence of right artificial hip joint; Z87.39 Personal history of other diseases of the musculoskeletal system and connective tissue; Z87.2 Personal history of diseases of the skin and subcutaneous tissue; Z98.84 Bariatric surgery status; Z98.890 Other specified postprocedural states; Z82.5 Family history of asthma and other chronic lower respiratory diseases; Z82.49 Family history of ischemic heart disease and other diseases of the circulatory system; Z83.3 Family history of diabetes mellitus
CPT/HCPCS: 36415; 36600; 70450; 71045; 71046; 74230; 80048; 80053; 80061; 81001; 82009; 82140; 82550; 82805; 83036; 83735; 84100; 84484; 85025; 87077; 87086; 87186; 93005; 93306; 93308; 93458; 93880; 94640; 94660; 99291